=== PATIENT | female | born 1960 | race Caucasian/White ===

== ENCOUNTER 2024-02-11 13:09 | Inpatient (IN) | payer SELFPAY ==
[~2024-02-11] VITALS: Ht 175.3 cm; Wt 94.0 kg
[2024-02-11] VITALS (36 sets, daily range): BP systolic 122–183; BP diastolic 71–109
[~2024-02-11 13:09] MED LIST: ALBUTERO2 IN; ASPERCREME LIDOCA41 SD; CARTIA XT180 MG PO; CLONAZEP ODT1 MG PO; CLONAZEPAM0.5 M1 PO; COMBIVENT RESPIMAT IN; CYMBALTA60 MG PO; DILT-XR180 MG PO; FERROUS SULF325 M3 PO; FLUTICASONE PRO1 AE1 PO; GERI-TUSSI100 MG/51 PO; IPRATROPIU0.5 MG/3 M IN; KLONOPIN1 MG PO; KLOR-CON M1010 MEQ PO; LASIX 40 MG TAB40 MG PO; LISINOPRIL5 MG PO; METFORMIN HCL1000 MG PO; METFORMIN HYD1000 MG; METHOCARBAMOL500 MG PO; NARCAN4 MG/0.1 M; NEURONTIN400 MG PO; OMNICEF300 MG PO; OXY1; POTASSIUM CHLO10 MEQ PO; PREDNISONE10 MG PO; PREDNISONE20 MG PO; PREDNISONE50 MG PO; TIOTROPIUM BRO18 MCG PO; TOPROL XL50 MG PO; TRAMADOL HCL50 MG PO; TRILEPTAL300 MG PO; [UNRECOGNIZED DRUG - OTHER] SD; [UNRECOGNIZED DRUG - OTHER] TOP
[2024-02-11] MEDS ORDERED: methylPREDNISolone SODIUM SUCC 125 MG/2 ML SDV IV ONE (13:15)
[2024-02-11] MEDS ORDERED: IPRATROPIUM-Albuterol 0.5MG-2.5MG/3 ML NEB ONE ×2 (13:15)
[2024-02-11] MEDS ORDERED: cefTRIAXone SODIUM 2 GM in SODIUM CHLORIDE 0.9% 100 ML IV ONE (13:20)
[2024-02-11 13:40] LABS: BASO% 1.1 % (0-3); EOS% 2.5 % (0-8); HEMATOCRIT 39.3 % (37.0-47.0); HEMOGLOBIN 11.2 g/dl (12.0-16.0); IMMATURE GRANULOCYTES 0.3 % (0.0-5.0); MEAN CELL VOLUME 101.8 fL CALC (80.0-100.0); MEAN CORPUSCULAR HGB CONC 28.5 g/dL CAL (32.0-36.0); MONO% 11.6 % (2-13); NEUT# 4.61 thou/uL (2.00-7.15); NEUT% 61.5 % (42-76); RED BLOOD COUNT 3.86 mill/uL (4.20-5.60); RED CELL DISTRI WIDTH 13.6 % (11.5-15.5)
[2024-02-11 13:55] LABS: ALKALINE PHOSPHATASE 61 u/l (38-126); BUN 10 mg/dL (8-23); BUN/CREATININE RATIO 24 (12-20 (CALC)); CARBON DIOXIDE 36 mmol/l (22-30); CHLORIDE 95 mmol/l (95-108); CREATININE 0.4 mg/dL (0.5-1.0); ESTIMATED GFR 110 ML/MIN (>=90 (CALC)); SGOT/AST 30 u/l (9-36); SODIUM 132 mmol/l (137-146); TOTAL PROTEIN 6.7 g/dL (6.3-8.2)
[2024-02-11] MEDS ORDERED: AZITHROMYCIN 500 MG in SODIUM CHLORIDE 0.9% 250 ML IV ONE (14:05)
[2024-02-11 14:06] LABS: ANION GAP 5 (6-22 (CALC)); BILIRUBIN, TOTAL 0.3 mg/dL (0.02-1.3); POTASSIUM 4.1 mmol/l (3.5-5.1)
[2024-02-11] MEDS ORDERED: MORPHINE SULFATE 4 MG/ML VIAL IV ONE (14:55)
[2024-02-11] MEDS ORDERED: ONDANSETRON HCl 4 MG/2 ML SDV IV ONE (14:55)
[2024-02-11] MEDS ORDERED: NALOXONE HCL 0.4 MG/ML 1ML AMP IV ONE (16:45)
[2024-02-11] MEDS ORDERED: ACETAMINOPHEN 325 MG/TAB PO PRN (17:50)
[2024-02-11] MEDS ORDERED: methylPREDNISolone Sod Succ 40 MG/ML SDV IV SCH (17:53)
[2024-02-11] MEDS ORDERED: IPRATROPIUM-Albuterol 0.5MG-2.5MG/3 ML NEB PRN (17:55)
[2024-02-11] MEDS ORDERED: ENOXAPARIN SODIUM 40 MG/0.4 ML SYR SC SCH (21:00)
[2024-02-12] VITALS (25 sets, daily range): BP systolic 109–154; BP diastolic 68–99
[2024-02-12 05:32] LABS: BASO% 0.9 % (0-3); HEMATOCRIT 37.7 % (37.0-47.0); HEMOGLOBIN 11.1 g/dl (12.0-16.0); IMMATURE GRANULOCYTES 0.3 % (0.0-5.0); LYMPH% 24.3 % (15-41); MEAN CELL VOLUME 99.5 fL CALC (80.0-100.0); MEAN CORPUSCULAR HGB 29.3 pG CALC (26.0-32.0); MEAN CORPUSCULAR HGB CONC 29.4 g/dL CAL (32.0-36.0); NEUT# 2.37 thou/uL (2.00-7.15); NEUT% 69.5 % (42-76); RED BLOOD COUNT 3.79 mill/uL (4.20-5.60); RED CELL DISTRI WIDTH 13.7 % (11.5-15.5)
[2024-02-12 05:51] LABS: ALBUMIN 3.7 g/dL (3.2-5.0); BILIRUBIN, TOTAL 0.2 mg/dL (0.02-1.3); CREATININE 0.6 mg/dL (0.5-1.0); MAGNESIUM 1.5 mg/dL (1.6-2.3); POTASSIUM 4.2 mmol/l (3.5-5.1); TOTAL PROTEIN 6.5 g/dL (6.3-8.2)
[2024-02-12] MEDS ORDERED: SODIUM CHLORIDE 0.9% 10 ML SYR IV PRN (07:50)
[2024-02-12] MEDS ORDERED: MAGNESIUM SULFATE HEPTAHYDRATE 50 ML IV SCH (08:00)
[2024-02-12] MEDS ORDERED: DEXTROSE 250 ML IV PRN (09:05)
[2024-02-12] MEDS ORDERED: GABAPENTIN 100 MG/CAP PO SCH (09:30)
[2024-02-12] MEDS ORDERED: DULOXETINE HCl 30 MG/CAP PO SCH (09:30)
[2024-02-12] MEDS ORDERED: METOPROLOL SUCCINATE 50 MG/TAB PO SCH (09:30)
[2024-02-12] MEDS ORDERED: FUROSEMIDE 40 MG/TAB PO SCH (09:30)
[2024-02-12] MEDS ORDERED: HYDROcodone 5 MG/Acetaminophen 325 MG/COMBO PO PRN (10:10)
[2024-02-12] MEDS ORDERED: INSULIN LISPRO 100 UNITS/ML ML SC SCH (11:00)
[2024-02-12] MEDS ORDERED: AZITHROMYCIN 500 MG in SODIUM CHLORIDE 0.9% 250 ML IV SCH (14:00)
[2024-02-12] MEDS ORDERED: SODIUM CHLORIDE 0.9% 10 ML SYR IV SCH (14:00)
[2024-02-13] VITALS (22 sets, daily range): BP systolic 113–166; BP diastolic 59–92
[2024-02-13] MEDS ORDERED: ALPRAZolam 0.25 MG PO PRN (05:30)
[2024-02-13 05:51] LABS: BASO% 0.3 % (0-3); HEMATOCRIT 36.8 % (37.0-47.0); HEMOGLOBIN 11.2 g/dl (12.0-16.0); IMMATURE GRANULOCYTES 0.3 % (0.0-5.0); LYMPH% 17.7 % (15-41); MEAN CELL VOLUME 96.3 fL CALC (80.0-100.0); MEAN CORPUSCULAR HGB 29.3 pG CALC (26.0-32.0); MEAN CORPUSCULAR HGB CONC 30.4 g/dL CAL (32.0-36.0); MONO% 8.5 % (2-13); NEUT# 5.73 thou/uL (2.00-7.15); NEUT% 73.2 % (42-76); RED BLOOD COUNT 3.82 mill/uL (4.20-5.60)
[2024-02-13 06:01] LABS: ALBUMIN 3.8 g/dL (3.2-5.0); BILIRUBIN, TOTAL 0.2 mg/dL (0.02-1.3); CREATININE 0.6 mg/dL (0.5-1.0); MAGNESIUM 1.8 mg/dL (1.6-2.3); POTASSIUM 3.9 mmol/l (3.5-5.1); TOTAL PROTEIN 6.2 g/dL (6.3-8.2)
[2024-02-13] MEDS ORDERED: HYDROcodone 5 MG/Acetaminophen 325 MG/COMBO PO PRN (10:20)
[2024-02-13] MEDS ORDERED: clonazePAM 1 MG/TAB PO PRN (10:25)
[2024-02-13] MEDS ORDERED: metFORMIN HYDROCHLORIDE 500 MG/TAB PO SCH (12:00)
[2024-02-14] VITALS (16 sets, daily range): BP systolic 130–163; BP diastolic 63–96
[2024-02-14 06:06] LABS: BASO% 0.2 % (0-3); HEMATOCRIT 36.5 % (37.0-47.0); HEMOGLOBIN 10.8 g/dl (12.0-16.0); IMMATURE GRANULOCYTES 0.2 % (0.0-5.0); MEAN CELL VOLUME 99.5 fL CALC (80.0-100.0); MEAN CORPUSCULAR HGB 29.4 pG CALC (26.0-32.0); MEAN CORPUSCULAR HGB CONC 29.6 g/dL CAL (32.0-36.0); MONO% 5.4 % (2-13); NEUT# 4.8 thou/uL (2.00-7.15); NEUT% 80.2 % (42-76); RED BLOOD COUNT 3.67 mill/uL (4.20-5.60); RED CELL DISTRI WIDTH 13.9 % (11.5-15.5)
[2024-02-14 06:35] LABS: ALBUMIN 3.6 g/dL (3.2-5.0); CREATININE 0.6 mg/dL (0.5-1.0); MAGNESIUM 1.8 mg/dL (1.6-2.3); POTASSIUM 4.3 mmol/l (3.5-5.1); TOTAL PROTEIN 5.9 g/dL (6.3-8.2)
[2024-02-14 06:43] LABS: BILIRUBIN, TOTAL 0.3 mg/dL (0.02-1.3)
[2024-02-14] MEDS ORDERED: NICOTINE TRANSDERMAL 21 MG/PATCH TD SCH (11:00)
[2024-02-15] VITALS: BP 150/79
[2024-02-15 04:47] VITALS: BP 145/89
[2024-02-15 05:00] VITALS: BP 145/89
[2024-02-15 05:41] LABS: BASO% 0.1 % (0-3); HEMATOCRIT 37.2 % (37.0-47.0); HEMOGLOBIN 11.1 g/dl (12.0-16.0); IMMATURE GRANULOCYTES 0.1 % (0.0-5.0); LYMPH% 16.9 % (15-41); MEAN CELL VOLUME 99.5 fL CALC (80.0-100.0); MEAN CORPUSCULAR HGB 29.7 pG CALC (26.0-32.0); MEAN CORPUSCULAR HGB CONC 29.8 g/dL CAL (32.0-36.0); MONO% 6.2 % (2-13); NEUT# 5.35 thou/uL (2.00-7.15); NEUT% 76.7 % (42-76); RED BLOOD COUNT 3.74 mill/uL (4.20-5.60); RED CELL DISTRI WIDTH 13.8 % (11.5-15.5)
[2024-02-15 05:44] LABS: ALBUMIN 3.6 g/dL (3.2-5.0); BILIRUBIN, TOTAL 0.2 mg/dL (0.02-1.3); CREATININE 0.6 mg/dL (0.5-1.0); MAGNESIUM 1.9 mg/dL (1.6-2.3); POTASSIUM 4.3 mmol/l (3.5-5.1); TOTAL PROTEIN 6.1 g/dL (6.3-8.2)
[2024-02-15 06:53] VITALS: BP 171/93
[2024-02-15 10:23] VITALS: BP 140/76
[2024-02-15] MEDS ORDERED: OMNICEF300 MG PO (11:48)
[2024-02-16 04:36] VITALS: BP 140/77
== END 2024-02-15 16:05 | disposition home or self-care (01) | DRG 190 ==
LOC: ED 13:09 → ED-I 15:07 → ED 15:07 → ICU 17:18 → MS2 17:18
PROVIDERS: Family Medicine; Nurse Practitioner Family; ADMIT Internal Medicine; ATTEND Internal Medicine
PROC: 05HN33Z Insertion of Infusion Device into Left Internal Jugular Vein, Percutaneous Approach (ICD-10-PCS; principal; 2024-02-11)
PROC: 5A09457 Assistance with Respiratory Ventilation, 24-96 Consecutive Hours, Continuous Positive Airway Pressure (ICD-10-PCS; 2024-02-11)
DX: J44.1 Chronic obstructive pulmonary disease with (acute) exacerbation (principal); J96.02 Acute respiratory failure with hypercapnia; E87.29 Other acidosis; J96.11 Chronic respiratory failure with hypoxia; J20.9 Acute bronchitis, unspecified; J44.0 Chronic obstructive pulmonary disease with (acute) lower respiratory infection; I10 Essential (primary) hypertension; E11.42 Type 2 diabetes mellitus with diabetic polyneuropathy; E83.42 Hypomagnesemia; E66.01 Morbid (severe) obesity due to excess calories; M19.90 Unspecified osteoarthritis, unspecified site; F41.9 Anxiety disorder, unspecified; F17.290 Nicotine dependence, other tobacco product, uncomplicated; Z99.81 Dependence on supplemental oxygen; Z79.84 Long term (current) use of oral hypoglycemic drugs; Z99.3 Dependence on wheelchair; Z91.81 History of falling; Z20.822 Contact with and (suspected) exposure to COVID-19
CPT/HCPCS: J1650; J3475

== ENCOUNTER 2024-03-01 11:04 | Inpatient (IN) | payer MEDICAID ==
[~2024-03-01] VITALS: Ht 175.3 cm; Wt 99.0 kg
[2024-03-01] VITALS (27 sets, daily range): BP systolic 95–187; BP diastolic 46–106
[2024-03-01] MEDS ORDERED: AZITHROMYCIN 500 MG in SODIUM CHLORIDE 0.9% 250 ML IV ONE (11:10)
[2024-03-01] MEDS ORDERED: IPRATROPIUM-Albuterol 0.5MG-2.5MG/3 ML NEB ONE ×2 (11:15)
[2024-03-01 11:46] LABS: BASO% 0.8 % (0-3); EOS% 2.9 % (0-8); HEMOGLOBIN 12.5 g/dl (12.0-16.0); IMMATURE GRANULOCYTES 0.3 % (0.0-5.0); LYMPH% 16.2 % (15-41); MEAN CELL VOLUME 103.6 fL CALC (80.0-100.0); MEAN CORPUSCULAR HGB 29.7 pG CALC (26.0-32.0); MEAN CORPUSCULAR HGB CONC 28.7 g/dL CAL (32.0-36.0); MONO% 6.7 % (2-13); NEUT# 9.73 thou/uL (2.00-7.15); NEUT% 73.1 % (42-76); RED BLOOD COUNT 4.21 mill/uL (4.20-5.60); RED CELL DISTRI WIDTH 14.4 % (11.5-15.5)
[2024-03-01 11:47] LABS: HEMATOCRIT 43.6 % (37.0-47.0)
[2024-03-01 11:47] LABS: URINE BILIRUBIN - DIPSTICK Negative (NEGATIVE); URINE BLOOD DIPSTICK Trace-intact (NEGATIVE); URINE GLUCOSE - DIPSTICK Negative (NEGATIVE); URINE KETONE Negative (NEGATIVE); URINE LEUK ESTERASE Negative (NEGATIVE); URINE PROTEIN - DIPSTICK Negative (NEG-TRACE); URINE UROBILINOGEN - DIPSTICK 0.2 E.U./dL (0.2)
[2024-03-01 11:48] LABS: URINE COLOR Yellow; URINE NITRITE - DIPSTICK Positive (Negative)
[2024-03-01 11:49] LABS: URINE BACTERIA MANY hpf; URINE RBC 0-2 RBC/hpf (0-5); URINE SQUAMOUS EPITHELIAL CELL FEW EPI/hpf (0-FEW); URINE WBC 0-2 WBC/hpf (0-5)
[2024-03-01 12:03] LABS: ALBUMIN 4.1 g/dL (3.2-5.0); ALKALINE PHOSPHATASE 57 u/l (38-126); BUN 9 mg/dL (8-23); BUN/CREATININE RATIO 22 (12-20 (CALC)); CHLORIDE 99 mmol/l (95-108); CREATININE 0.4 mg/dL (0.5-1.0); ESTIMATED GFR 110 ML/MIN (>=90 (CALC)); SGOT/AST 29 u/l (9-36); SODIUM 141 mmol/l (137-146); TOTAL PROTEIN 6.5 g/dL (6.3-8.2)
[2024-03-01 12:10] LABS: ANION GAP 7 (6-22 (CALC)); BILIRUBIN, TOTAL 0.4 mg/dL (0.02-1.3); CARBON DIOXIDE 40 mmol/l (22-30); POTASSIUM 5.2 mmol/l (3.5-5.1)
[2024-03-01] MEDS ORDERED: MORPHINE SULFATE 4 MG/ML VIAL IV ONE (12:35)
[2024-03-01] MEDS ORDERED: ONDANSETRON HCl 4 MG/2 ML SDV IV ONE (12:35)
[2024-03-01] MEDS ORDERED: clonazePAM 1 MG/TAB PO PRN (17:00)
[2024-03-01] MEDS ORDERED: ACETAMINOPHEN 325 MG/TAB PO PRN (17:00)
[2024-03-01] MEDS ORDERED: MAGNESIUM HYDROXIDE 30 ML UDC PO PRN (17:00)
[2024-03-01] MEDS ORDERED: HYDROcodone 5 MG/Acetaminophen 325 MG/COMBO PO PRN (17:05)
[2024-03-01] MEDS ORDERED: IPRATROPIUM-Albuterol 0.5MG-2.5MG/3 ML NEB PRN (17:05)
[2024-03-01] MEDS ORDERED: DEXTROSE 250 ML IV PRN (17:05)
[2024-03-01] MEDS ORDERED: DILTIAZEM HCl COATED BEADS 180 MG/CAP PO SCH (20:00)
[2024-03-01] MEDS ORDERED: INSULIN LISPRO 100 UNITS/ML ML SC SCH (21:00)
[2024-03-01] MEDS ORDERED: DULOXETINE HCl 30 MG/CAP PO SCH (21:00)
[2024-03-01] MEDS ORDERED: GABAPENTIN 100 MG/CAP PO SCH (21:00)
[2024-03-01] MEDS ORDERED: ENOXAPARIN SODIUM 40 MG/0.4 ML SYR SC SCH (21:00)
[2024-03-01] MEDS ORDERED: methylPREDNISolone Sod Succ 40 MG/ML SDV IV SCH (22:00)
[2024-03-02] VITALS (25 sets, daily range): BP systolic 93–157; BP diastolic 55–103
[2024-03-02] MEDS ORDERED: OXcarbazepine 150 MG/TAB PO SCH (09:00)
[2024-03-02] MEDS ORDERED: METOPROLOL SUCCINATE 50 MG/TAB PO SCH (09:00)
[2024-03-02] MEDS ORDERED: FUROSEMIDE 40 MG/TAB PO SCH (09:00)
[2024-03-02] MEDS ORDERED: AZITHROMYCIN 500 MG in SODIUM CHLORIDE 0.9% 250 ML IV SCH (11:00)
[2024-03-02] MEDS ORDERED: LISINOPRIL2.5 MG PO (15:30)
[2024-03-03] VITALS (21 sets, daily range): BP systolic 113–148; BP diastolic 58–109
[2024-03-03 04:57] LABS: HEMATOCRIT 39.9 % (37.0-47.0); HEMOGLOBIN 12.1 g/dl (12.0-16.0); MEAN CELL VOLUME 98.3 fL CALC (80.0-100.0); MEAN CORPUSCULAR HGB 29.8 pG CALC (26.0-32.0); MEAN CORPUSCULAR HGB CONC 30.3 g/dL CAL (32.0-36.0); RED BLOOD COUNT 4.06 mill/uL (4.20-5.60); RED CELL DISTRI WIDTH 14.4 % (11.5-15.5)
[2024-03-03 05:23] LABS: ALBUMIN 4.2 g/dL (3.2-5.0); BILIRUBIN, TOTAL 0.3 mg/dL (0.02-1.3); CREATININE 0.7 mg/dL (0.5-1.0); MAGNESIUM 1.8 mg/dL (1.6-2.3); POTASSIUM 4.5 mmol/l (3.5-5.1); TOTAL PROTEIN 6.5 g/dL (6.3-8.2)
[2024-03-03] MEDS ORDERED: NICOTINE TRANSDERMAL 21 MG/PATCH TD SCH (12:00)
[2024-03-04] VITALS (32 sets, daily range): BP systolic 69–151; BP diastolic 44–99
[2024-03-04 07:25] LABS: BASO% 0.1 % (0-3); HEMATOCRIT 38.9 % (37.0-47.0); HEMOGLOBIN 11.8 g/dl (12.0-16.0); IMMATURE GRANULOCYTES 0.1 % (0.0-5.0); LYMPH% 13.6 % (15-41); MEAN CORPUSCULAR HGB CONC 30.3 g/dL CAL (32.0-36.0); MONO% 13.3 % (2-13); NEUT# 8.18 thou/uL (2.00-7.15); NEUT% 72.9 % (42-76); RED BLOOD COUNT 3.93 mill/uL (4.20-5.60); RED CELL DISTRI WIDTH 14.7 % (11.5-15.5)
[2024-03-04 07:38] LABS: ALBUMIN 3.7 g/dL (3.2-5.0); BILIRUBIN, TOTAL 0.4 mg/dL (0.02-1.3); CREATININE 0.6 mg/dL (0.5-1.0)
[2024-03-04] MEDS ORDERED: LORazepam 2 MG/ML IV PRN (08:55)
[2024-03-04] MEDS ORDERED: dilTIAZem HCL 50 MG/10 ML SDV IV PRN (13:15)
[2024-03-04] MEDS ORDERED: DILTIAZEM HCL 125 MG in SODIUM CHLORIDE 0.9% 100 ML IV PRN (13:15)
[2024-03-04] MEDS ORDERED: DILTIAZEM HCL 25 MG/5 ML SDV IV PRN (13:25)
[2024-03-04] MEDS ORDERED: IPRATROPIUM BROMIDE 0.5 MG/2.5 ML SOL IN SCH (15:00)
[2024-03-04] MEDS ORDERED: LEVALBUTEROL HCL 1.25 MG/3 ML VIAL NEB SCH (15:00)
[2024-03-04] MEDS ORDERED: DIGOXIN 0.5 MG/2 ML AMP IV SCH ×2 (15:45→18:00)
[2024-03-04] MEDS ORDERED: methylPREDNISolone Sod Succ 40 MG/ML SDV IV SCH (21:00)
[2024-03-04] MEDS ORDERED: APIXABAN BASE 2.5 MG/TAB TAB PO SCH (21:00)
[2024-03-05] VITALS (36 sets, daily range): BP systolic 114–182; BP diastolic 64–125
[2024-03-05 04:59] LABS: HEMATOCRIT 40.6 % (37.0-47.0); HEMOGLOBIN 12.1 g/dl (12.0-16.0); IMMATURE GRANULOCYTES 0.3 % (0.0-5.0); LYMPH% 8.3 % (15-41); MEAN CELL VOLUME 101.2 fL CALC (80.0-100.0); MEAN CORPUSCULAR HGB 30.2 pG CALC (26.0-32.0); MEAN CORPUSCULAR HGB CONC 29.8 g/dL CAL (32.0-36.0); MONO% 3.2 % (2-13); NEUT# 6.89 thou/uL (2.00-7.15); NEUT% 88.2 % (42-76); RED BLOOD COUNT 4.01 mill/uL (4.20-5.60); RED CELL DISTRI WIDTH 14.4 % (11.5-15.5)
[2024-03-05 05:01] LABS: ALBUMIN 3.9 g/dL (3.2-5.0); POTASSIUM 4.5 mmol/l (3.5-5.1); TOTAL PROTEIN 6.1 g/dL (6.3-8.2)
[2024-03-05 05:05] LABS: CREATININE 0.6 mg/dL (0.5-1.0)
[2024-03-05 05:06] LABS: BILIRUBIN, TOTAL 0.2 mg/dL (0.02-1.3)
[2024-03-05] MEDS ORDERED: LISINOPRIL 20 MG/TAB PO SCH (10:30)
[2024-03-06] VITALS (18 sets, daily range): BP systolic 110–184; BP diastolic 70–90
[2024-03-06 04:45] LABS: BASO% 0.1 % (0-3); HEMOGLOBIN 11.6 g/dl (12.0-16.0); IMMATURE GRANULOCYTES 1.1 % (0.0-5.0); LYMPH% 7.3 % (15-41); MEAN CELL VOLUME 99.5 fL CALC (80.0-100.0); MEAN CORPUSCULAR HGB 29.6 pG CALC (26.0-32.0); MEAN CORPUSCULAR HGB CONC 29.7 g/dL CAL (32.0-36.0); NEUT# 7.66 thou/uL (2.00-7.15); NEUT% 87.5 % (42-76); RED BLOOD COUNT 3.92 mill/uL (4.20-5.60); RED CELL DISTRI WIDTH 14.3 % (11.5-15.5)
[2024-03-06 05:20] LABS: ALBUMIN 3.7 g/dL (3.2-5.0); CREATININE 0.5 mg/dL (0.5-1.0); MAGNESIUM 2.1 mg/dL (1.6-2.3); POTASSIUM 4.5 mmol/l (3.5-5.1); TOTAL PROTEIN 5.9 g/dL (6.3-8.2)
[2024-03-06 05:22] LABS: BILIRUBIN, TOTAL 0.3 mg/dL (0.02-1.3)
[2024-03-06] MEDS ORDERED: DEXAMETHASONE 2 MG/TAB TAB PO SCH (09:00)
[2024-03-06] MEDS ORDERED: METOPROLOL SUCCINATE 50 MG/TAB PO SCH (09:00)
[2024-03-06] MEDS ORDERED: ELIQUIS2.5 MG PO (12:18)
[2024-03-06] MEDS ORDERED: TOPROL XL50 MG PO (12:19)
[2024-03-06] MEDS ORDERED: LASIX 40 MG TAB40 MG PO (12:22)
[2024-03-06] MEDS ORDERED: POTASSIUM CHLO10 MEQ PO (12:23)
[2024-03-06] MEDS ORDERED: TRILEPTAL300 MG PO (12:23)
[2024-03-06] MEDS ORDERED: NEURONTIN400 MG PO (12:23)
[2024-03-06] MEDS ORDERED: CYMBALTA60 MG PO (12:23)
[2024-03-06] MEDS ORDERED: CARTIA XT180 MG PO (12:23)
[2024-03-06] MEDS ORDERED: LISINOPRIL10 MG PO (12:24)
[2024-03-06] MEDS ORDERED: OMNICEF300 MG PO (12:25)
[2024-03-06] MEDS ORDERED: CLONAZEP ODT1 MG PO ×2 (12:25→21:11)
[2024-03-06] MEDS ORDERED: LORTAB5 PO ×2 (12:25→21:11)
[2024-03-06] MEDS ORDERED: DECADRON2 MG PO (12:30)
[2024-03-06] MEDS ORDERED: IPRATROPIU0.5 MG/3 M IN (12:31)
== END 2024-03-06 19:05 | disposition home or self-care (01) | DRG 189 ==
LOC: ED 11:04 → ED-I 12:05 → ED 12:40 → ICU 12:41 → MS2 03-03 08:30 → ICU 03-03 10:18
PROVIDERS: Family Medicine; Student in an Organized Health Care Education/Training Program; ADMIT Internal Medicine; ATTEND Internal Medicine
PROC: 5A09457 Assistance with Respiratory Ventilation, 24-96 Consecutive Hours, Continuous Positive Airway Pressure (ICD-10-PCS; principal; 2024-03-01)
DX: J96.21 Acute and chronic respiratory failure with hypoxia (principal); J44.1 Chronic obstructive pulmonary disease with (acute) exacerbation; N39.0 Urinary tract infection, site not specified; J96.22 Acute and chronic respiratory failure with hypercapnia; B96.1 Klebsiella pneumoniae [K. pneumoniae] as the cause of diseases classified elsewhere; I10 Essential (primary) hypertension; E11.9 Type 2 diabetes mellitus without complications; I48.0 Paroxysmal atrial fibrillation; F31.9 Bipolar disorder, unspecified; F41.9 Anxiety disorder, unspecified; M54.50 Low back pain, unspecified; G89.29 Other chronic pain; F17.210 Nicotine dependence, cigarettes, uncomplicated; Z99.81 Dependence on supplemental oxygen; Z79.84 Long term (current) use of oral hypoglycemic drugs; Z20.822 Contact with and (suspected) exposure to COVID-19; E66.9 Obesity, unspecified; Z68.32 Body mass index [BMI] 32.0-32.9, adult
CPT/HCPCS: J1160; J1650; J2060

== ENCOUNTER 2024-03-24 00:25 | Emergency (ER) | payer MEDICAID ==
[2024-03-24] VITALS (14 sets, daily range): BP systolic 109–163; BP diastolic 47–101
[~2024-03-24] VITALS: Ht 175.3 cm; Wt 90.0 kg
[~2024-03-24 00:25] MED LIST changes: +DECADRON2 MG PO; +ELIQUIS2.5 MG PO; +LISINOPRIL10 MG PO; +LISINOPRIL2.5 MG PO; +LORTAB5 PO
[2024-03-24] MEDS ORDERED: FUROSEMIDE 40 MG/4 ML SDV IV ONE (00:35)
[2024-03-24] MEDS ORDERED: KETOROLAC TROMETHAMINE 30 MG/ML SDV IV ONE (00:35)
[2024-03-24] MEDS ORDERED: IPRATROPIUM-Albuterol 0.5MG-2.5MG/3 ML NEB ONE (00:35)
[2024-03-24] MEDS ORDERED: MORPHINE SULFATE 4 MG/ML VIAL IV ONE ×2 (01:30→03:05)
[2024-03-24 01:49] LABS: HEMOGLOBIN 13.5 g/dl (12.0-16.0); MEAN CORPUSCULAR HGB 29.7 pG CALC (26.0-32.0); MEAN CORPUSCULAR HGB CONC 27.8 g/dL CAL (32.0-36.0); RED BLOOD COUNT 4.54 mill/uL (4.20-5.60)
[2024-03-24 01:50] LABS: BASO% 0.6 % (0-3); EOS% 0.2 % (0-8); IMMATURE GRANULOCYTES 0.2 % (0.0-5.0); LYMPH% 10.7 % (15-41); MONO% 7.6 % (2-13); NEUT# 8.03 thou/uL (2.00-7.15); NEUT% 80.7 % (42-76); RED CELL DISTRI WIDTH 14.7 % (11.5-15.5)
[2024-03-24 02:00] LABS: HEMATOCRIT 48.5 % (37.0-47.0); MEAN CELL VOLUME 106.8 fL CALC (80.0-100.0)
[2024-03-24 02:13] LABS: ALBUMIN 3.9 g/dL (3.2-5.0); BILIRUBIN, TOTAL 0.4 mg/dL (0.02-1.3); CREATININE 0.5 mg/dL (0.5-1.0); POTASSIUM 4.7 mmol/l (3.5-5.1); TOTAL PROTEIN 6.7 g/dL (6.3-8.2)
[2024-03-24] MEDS ORDERED: PROMETHAZINE HCL 25 MG/ML AMP IV ONE (03:05)
[2024-03-24 06:48] LABS: URINE BILIRUBIN - DIPSTICK Negative (NEGATIVE); URINE BLOOD DIPSTICK Negative (NEGATIVE); URINE GLUCOSE - DIPSTICK Negative (NEGATIVE); URINE KETONE Negative (NEGATIVE); URINE LEUK ESTERASE Negative (NEGATIVE); URINE NITRITE - DIPSTICK Negative (Negative); URINE PROTEIN - DIPSTICK 100 mg/dL (NEG-TRACE); URINE UROBILINOGEN - DIPSTICK 0.2 E.U./dL (0.2)
[2024-03-24 06:49] LABS: URINE COLOR Yellow
[2024-03-24] MEDS ORDERED: NEOMYCIN-BACITRACIN-POLYMYXIN 0.5 GM/PAK PAK TOP ONE (06:50)
[2024-03-24 07:02] LABS: URINE RBC 0-2 RBC/hpf (0-5)
== END 2024-03-24 12:30 | disposition home or self-care (01) ==
LOC: ED 00:25
PROVIDERS: Family Medicine
DX: S81.011A Laceration without foreign body, right knee, initial encounter (principal); S51.011A Laceration without foreign body of right elbow, initial encounter; T14.8XXA Other injury of unspecified body region, initial encounter; I10 Essential (primary) hypertension; E11.9 Type 2 diabetes mellitus without complications; J44.9 Chronic obstructive pulmonary disease, unspecified; F31.9 Bipolar disorder, unspecified; F41.9 Anxiety disorder, unspecified; E66.9 Obesity, unspecified; F17.210 Nicotine dependence, cigarettes, uncomplicated; W06.XXXA Fall from bed, initial encounter; Y92.003 Bedroom of unspecified non-institutional (private) residence as the place of occurrence of the external cause; Z79.84 Long term (current) use of oral hypoglycemic drugs; Z99.81 Dependence on supplemental oxygen; Z20.822 Contact with and (suspected) exposure to COVID-19

== ENCOUNTER 2024-03-28 00:27 | Inpatient (IN) | payer MEDICAID ==
[~2024-03-28] VITALS: Ht 175.3 cm; Wt 106.5 kg
[2024-03-28] VITALS (37 sets, daily range): BP systolic 96–147; BP diastolic 57–110
--- NOTE | 2024-03-28 00:27 | NUR ---
PATIENT TO ROOM 1 VIA EMS.
[2024-03-28] MEDS ORDERED: IPRATROPIUM-Albuterol 0.5MG-2.5MG/3 ML NEB ONE (00:35)
[2024-03-28] MEDS ORDERED: methylPREDNISolone Sod Succ 40 MG/ML SDV IV ONE (00:35)
[2024-03-28] MEDS ORDERED: VANCOMYCIN HCL 1 GM in SODIUM CHLORIDE 0.9% 250 ML IV ONE (01:05)
[2024-03-28] MEDS ORDERED: CEFEPIME HYDROCHLORIDE 2 GM in SODIUM CHLORIDE 0.9% 100 ML IV ONE (01:05)
--- NOTE | 2024-03-28 01:21 | NUR ---
PATIENT PLACED ON BIPAP
[2024-03-28 01:26] LABS: BASO% 0.6 % (0-3); EOS% 1.8 % (0-8); HEMATOCRIT 51.8 % (37.0-47.0); HEMOGLOBIN 14.4 g/dl (12.0-16.0); IMMATURE GRANULOCYTES 0.4 % (0.0-5.0); LYMPH% 20.5 % (15-41); MEAN CELL VOLUME 107.5 fL CALC (80.0-100.0); MEAN CORPUSCULAR HGB 29.9 pG CALC (26.0-32.0); MEAN CORPUSCULAR HGB CONC 27.8 g/dL CAL (32.0-36.0); NEUT# 8.29 thou/uL (2.00-7.15); NEUT% 64.7 % (42-76); RED BLOOD COUNT 4.82 mill/uL (4.20-5.60); RED CELL DISTRI WIDTH 15.2 % (11.5-15.5)
[2024-03-28 01:39] LABS: ALBUMIN 4.2 g/dL (3.2-5.0); BILIRUBIN, TOTAL 0.4 mg/dL (0.02-1.3); CREATININE 0.7 mg/dL (0.5-1.0); POTASSIUM 4.5 mmol/l (3.5-5.1); TOTAL PROTEIN 7.1 g/dL (6.3-8.2)
[2024-03-28] MEDS ORDERED: ACETAMINOPHEN 325 MG/TAB PO PRN (02:30)
[2024-03-28] MEDS ORDERED: MAGNESIUM HYDROXIDE 30 ML UDC PO PRN (02:30)
--- NOTE | 2024-03-28 02:37 | NUR ---
PATIENT AWAITING ROOM ASSIGNMENT
[2024-03-28] MEDS ORDERED: ALBUTEROL SULFATE 8 GM INH IN SCH (04:00)
--- NOTE | 2024-03-28 05:00 | NUR ---
pt assesses moved to [facility] with ER ad RT, pt bathes for BM, new brief, put on bipap, pt has enucleated left eye, RR non labored. coarse over diminished lung sounds. scattered bruises, no decubitus, roght foot little toe abcess. pt reports smoking at home on o2, pt states" she does not want this anymore" , asked what that is pt states " "comming to the hospital", pt encouraged to let MD know her wishes when he rounds. . pt provided a gown and warm blanket. new linens pt weighed and recored 213lbs. alox2. person and [place. BSx4. IV flushed. moniotr on , NSR, BP stable. 99.0 temprally. bed alarm on .
--- NOTE | 2024-03-28 05:31 | NUR ---
REPORT CALLED TO ANTOINE WHITLEY.
--- NOTE | 2024-03-28 05:40 | NUR ---
PATIENT TRASNPORTED TO ICU BED 8, CARE HANDED OVER TO DARRELL WHITLEY
[2024-03-28] MEDS ORDERED: HYDROcodone 5 MG/Acetaminophen 325 MG/COMBO PO PRN (08:00)
[2024-03-28] MEDS ORDERED: DEXTROSE 250 ML IV PRN (08:00)
[2024-03-28] MEDS ORDERED: IPRATROPIUM-Albuterol 0.5MG-2.5MG/3 ML NEB PRN (08:00)
[2024-03-28] MEDS ORDERED: clonazePAM 1 MG/TAB PO PRN (08:00)
--- NOTE | 2024-03-28 08:00 | NUR ---
REPORT RECEIVED FROM NIGHT NURSE. PATIENT IS RESTING IN BED. DOES NOT WAKE UP TO VERBAL STIMULI, ONLY PAINFUL STIMULI. ON BIPAP 40%. SR ON TELE. VS WNL. RT TO DO ABG. ALL NEEDS ADDRESSED.
[2024-03-28] MEDS ORDERED: GABAPENTIN 300 MG/CAP PO SCH (09:00)
[2024-03-28] MEDS ORDERED: methylPREDNISolone Sod Succ 40 MG/ML SDV IV SCH (09:00)
[2024-03-28] MEDS ORDERED: METOPROLOL SUCCINATE 50 MG/TAB PO SCH (09:00)
[2024-03-28] MEDS ORDERED: DILTIAZEM HCl COATED BEADS 180 MG/CAP PO SCH (09:00)
[2024-03-28] MEDS ORDERED: DULOXETINE HCl 30 MG/CAP PO SCH (09:00)
[2024-03-28] MEDS ORDERED: GABAPENTIN 100 MG/CAP PO SCH ×2 (09:00)
[2024-03-28] MEDS ORDERED: APIXABAN BASE 5 MG TAB PO SCH (09:00)
[2024-03-28] MEDS ORDERED: CEFEPIME HYDROCHLORIDE 2 GM in SODIUM CHLORIDE 0.9% 100 ML IV SCH (10:00)
--- NOTE | 2024-03-28 10:00 | NUR ---
PATIENT LAYING IN BED RESTING. ON BIPAP 50%. ALL NEEDS MET. VSS.
[2024-03-28] MEDS ORDERED: INSULIN LISPRO 100 UNITS/ML ML SC SCH (11:00)
--- NOTE | 2024-03-28 11:17 | NUR ---
S: CHARLOTTE CHAHAL is a 63 F who presents with cellulitis. She has a history of diabetes, hypertension, COPD, anxiety, bipolar disorder, and chronic back pain. All medications in patient's chart were reviewed. O: VS: BP 114/65 mmHg, P 72 beats/min, RR 20 bpm,T 99 F W 96.8 kg, HT 175 cm, Scr= 0.7,CrCl= 100.5 ml/min A: Blood culture is pending. P: Patient is on cefepime 2g IV Q12H. Vancomycin ordered for pharmacy to dose. Start Vancomycin 1,250 mg IV Q12H. Vancomycin trough is drawn before the 4th dose on 03/30/2024 @ 0030. Vancomycin goal trough is between 10-15 mcg/ml. Pharmacy will follow and advise on antibiotics use as needed.
--- NOTE | 2024-03-28 12:00 | NUR ---
PATIENT SITTIG UP IN BED AWAKE. AXO X3. DR. LARIOS AT BEDSIDE. PATIENT WAS TAKEN OFF BIPAP AND PLACED ON NASAL CANULA 3L. ALL NEEDS MET. CALL LIGHT IN REACH. VSS.
[2024-03-28] MEDS ORDERED: VANCOMYCIN HCL 1,250 MG in SODIUM CHLORIDE 0.9% 225 ML IV SCH (13:00)
--- NOTE | 2024-03-28 14:00 | NUR ---
PATIENT LAYING IN BED RESTING. ON 3L NC. ALL NEEDS MET. CALL LIGHT IN REACH. VSS.
--- NOTE | 2024-03-28 16:00 | NUR ---
PATIENT LAYING ON SIDE RESTING. DRESSING CHANGE COMPLETE, PATIENT TOLERATED WELL. ON 3L NC. PUREWICK IN PLACE. CALL LIGHT IN REACH. VSS.
--- NOTE | 2024-03-28 18:00 | NUR ---
PATIENT LAYING DOWN IN BED RESTING. ON 3L NC. PUREWICK IN PLACE. ALL NEEDS MET. CALL LIGHT IN REACH. VSS.
[2024-03-28 19:42] LABS: URINE BILIRUBIN - DIPSTICK Negative (NEGATIVE); URINE BLOOD DIPSTICK Negative (NEGATIVE); URINE GLUCOSE - DIPSTICK Negative (NEGATIVE); URINE KETONE Negative (NEGATIVE); URINE LEUK ESTERASE Negative (NEGATIVE); URINE NITRITE - DIPSTICK Negative (Negative); URINE PH 5.5 (4.5-8.0); URINE PROTEIN - DIPSTICK 100 mg/dL (NEG-TRACE); URINE SPECIFIC GRAVITY >=1.030; URINE UROBILINOGEN - DIPSTICK 0.2 E.U./dL (0.2)
[2024-03-28 19:50] LABS: URINE COLOR Yellow
--- NOTE | 2024-03-28 19:50 | NUR ---
spoke to DR. Heart , about pt refusing to go on bipap, pt confused not redirecting or following commands. . Pt medicated , DR. Heart ordered an ABG,
[2024-03-28 19:51] LABS: URINE AMORPH SEDIMENT MANY hpf (NONE-FEW); URINE RBC 0-2 RBC/hpf (0-5); URINE SQUAMOUS EPITHELIAL CELL FEW EPI/hpf (0-FEW)
--- NOTE | 2024-03-28 20:00 | NUR ---
PT ASSESSED , REFUSED TO BE REOPOSITIONED AND RESPOSITIONED HERSELF A LITTLE PT ANXIOUS AND REQUESTING HER PM MEDS. PM MEDS GIVEN EARLY . PT AGREEED TO GO ON BIPAP FOR EVENING AND ASKING IF SHE IS GOING HOME TONIGHT. PT EDUCATED NO , SHE JUST GOT HERE THIS AM AND WAS IN RESPIRATORY DISTRESS. CO2 CURRENTLY IN 90S ON LAST GAS. PT DRANK WATER WITH PILLS NO ISSUIES SWOLLOWING. CALL LANCASTER WITHIN REACH ALL MONITORS ON . ROYCECK IN PLACE U/A SENT .
[2024-03-28] MEDS ORDERED: ENOXAPARIN SODIUM 40 MG/0.4 ML SYR SC SCH (21:00)
--- NOTE | 2024-03-28 22:28 | NUR ---
pt complied and was put on bipap., Dr. Heart made aware of gas by RT Phillip and pt put on bipap.
[2024-03-29] VITALS (19 sets, daily range): BP systolic 103–138; BP diastolic 46–94
--- NOTE | 2024-03-29 | NUR ---
pt caregiver updated to pt status via phone earlier this evening. Pt urrently complient on the bipap on her right side positioned with pillows sleeping , IVABX done IV flushed , call covington within reach , Melbosswick working . on all moniotrs and all alarms on . resting comfortably.
--- NOTE | 2024-03-29 02:00 | NUR ---
pt resting comfortaly on the bipap, all safety measures in place, warm blankets provided. call covington within reach.
--- NOTE | 2024-03-29 04:31 | NUR ---
pt still refusing care, refusing lab draws and antibiotics. valeriano hobson MD in am
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
--- NOTE | 2024-03-29 04:48 | NUR ---
pt finally let RN masonry supervisor abx. will let pharmacy know for trough.
--- NOTE | 2024-03-29 05:45 | NUR ---
pt ely , IV ABX going . medicated am solu medrol on bipap, all monitors on , bed alarm on , call covington within reach.
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
--- NOTE | 2024-03-29 08:00 | NUR ---
REPORT RECEIVED FROM MARINE PLUMBER NURSE. PATIENT IS RESTING IN BED, ON 3L NC. PATIENT IS CONFUSED, ONLY ORIENTED TO SELF AND PLACE, KEEPS YELLING OUT AND HITTING CALL LIGHT ON BED RAIL. WHEN ASKED WHY SHE IS YELLING, PATIENT STATES THAT PEOPLE ARE TRYING TO KILL HER. MD AT BEDSIDE AND ORDERED ZYPREXA. VS WNL, NSR ON TELE MONITOR. ALL NEEDS ADDRESSED.
--- NOTE | 2024-03-29 09:15 | NUR ---
Dr Clifton (wound care ) at bedside. Orders for wound care in chart.
[2024-03-29 09:29] LABS: HEMATOCRIT 46.3 % (37.0-47.0); HEMOGLOBIN 13.1 g/dl (12.0-16.0); MEAN CELL VOLUME 106.4 fL CALC (80.0-100.0); MEAN CORPUSCULAR HGB 30.1 pG CALC (26.0-32.0); MEAN CORPUSCULAR HGB CONC 28.3 g/dL CAL (32.0-36.0); RED BLOOD COUNT 4.35 mill/uL (4.20-5.60); RED CELL DISTRI WIDTH 14.4 % (11.5-15.5)
[2024-03-29] MEDS ORDERED: NEOMYCIN TOP PRN (09:40)
[2024-03-29] MEDS ORDERED: BACITRACIN TOP PRN (09:40)
[2024-03-29] MEDS ORDERED: [UNRECOGNIZED DRUG - OTHER] TOP PRN (09:40)
--- NOTE | 2024-03-29 10:00 | NUR ---
PATIENT IS RESTING IN BED, SEEMS TO BE MORE CALM THAN EARLIER. A&O TO SELF, PLACE. ON 3L NC, BIPAP ON STANDBY. VS WNL, NSR ON TELE MONITOR. ALL NEEDS ADDRESSED.
[2024-03-29 10:31] LABS: ALBUMIN 3.7 g/dL (3.2-5.0); BILIRUBIN, TOTAL 0.4 mg/dL (0.02-1.3); CREATININE 0.7 mg/dL (0.5-1.0)
[2024-03-29 10:34] LABS: POTASSIUM 5.2 mmol/l (3.5-5.1)
[2024-03-29 10:35] LABS: MAGNESIUM 1.5 mg/dL (1.6-2.3)
--- NOTE | 2024-03-29 12:00 | NUR ---
PATIENT LAYING IN BED SLEEPING. ON 3L NC. NORMAL SINUS ON TELE. VSS. CALL LIGHT IN REACH.
--- NOTE | 2024-03-29 14:00 | NUR ---
PATIENT SITTING UP IN BED EATING. ALL NEEDS MET. ON 3L NC. NS ON TELE. CALL LIGHT IN REACH. VSS.
--- NOTE | 2024-03-29 16:00 | NUR ---
PATIENT LAYING DOWN IN BED ASLEEP. ON 3LNC. ALL NEEDS MET. VSS.
--- NOTE | 2024-03-29 18:00 | NUR ---
PATIENT SITTING UP IN BED EATING. DRESSING CHANGE COMPLETE. PATIENT TOLERATED WELL. ALL NEEDS MET. VSS.
--- NOTE | 2024-03-29 20:00 | NUR ---
pt assessed, pt is acting out and yelling . sitting at bedside to let her calm down , contacted Dr. Rodriguez for prn meds for aggitation.
--- NOTE | 2024-03-29 22:00 | NUR ---
pt resting comfortably after IM 2.5 zyprexa. pt put on bipap to sleep by RT.
--- NOTE | 2024-03-30 | NUR ---
pt resting and changed for incontinence new briief, purewick. all onitors on bipap on . iv abx . call covington within reach.
--- NOTE | 2024-03-30 02:00 | NUR ---
pt resting comfoertbaly on bipap. all needs met. call covington within reach.
--- NOTE | 2024-03-30 03:00 | NUR ---
pt awoke screaming and volent behavior toward staff ripped off bipap and would not let RN or anyone put on nasal cannula, pt sats dipped to 78% with a good pleth. contacted Una Askew and obtained orders for ativan iv and zyprexa for prn if ativan does not work. pts IV was out obtaibed a new IV 20 in left hand and pt given ativan , pt became more cooperative and was put on nasal cannula pt was bathed for urine, new gown new bedding new pure wick. turned on left side per pt request and fell asleep.
[2024-03-30] MEDS ORDERED: LORazepam 2 MG/ML IV SCH ×2 (03:17→22:00)
--- NOTE | 2024-03-30 04:00 | NUR ---
maintenance shop laborer abhay labs pt restng on 3L nc, RT stopped by made aware of previous situation and told pt medicated if she wanted to to bipap on pt. RT stateed no BIpAP for now pt should be left on NC sats maintained abouve 90%. pt resting comfortably. call covington within reach.
[2024-03-30 05:00] LABS: HEMATOCRIT 43.3 % (37.0-47.0); HEMOGLOBIN 12.5 g/dl (12.0-16.0); MEAN CELL VOLUME 104.6 fL CALC (80.0-100.0); MEAN CORPUSCULAR HGB 30.2 pG CALC (26.0-32.0); MEAN CORPUSCULAR HGB CONC 28.9 g/dL CAL (32.0-36.0); RED BLOOD COUNT 4.14 mill/uL (4.20-5.60); RED CELL DISTRI WIDTH 14.5 % (11.5-15.5)
[2024-03-30 05:07] LABS: ALBUMIN 3.5 g/dL (3.2-5.0); BILIRUBIN, TOTAL 0.3 mg/dL (0.02-1.3); CREATININE 0.6 mg/dL (0.5-1.0); POTASSIUM 4.8 mmol/l (3.5-5.1); TOTAL PROTEIN 5.7 g/dL (6.3-8.2)
[2024-03-30 05:27] LABS: MAGNESIUM 1.9 mg/dL (1.6-2.3)
[2024-03-30 05:35] VITALS: BP 122/72
--- NOTE | 2024-03-30 06:00 | NUR ---
pt resting sleeping mouth open pt woke up due to sats 88% encouraged to take a deep breath. sats 90-92% on 3L NC. pt dry . call covington within reach .
[2024-03-30] MEDS ORDERED: OXcarbazepine 150 MG/TAB PO SCH (09:00)
--- NOTE | 2024-03-30 10:00 | NUR ---
Patient is resting in bed, patient remains confused. A&O to self only, at times she knows she is at the hospital. On 3L NC, BIPAP on standby. Purwick in place, NSR on tele monitor. All needs addressed. Call light within reach, bed alarm on.
--- NOTE | 2024-03-30 10:38 | NUR ---
S: CHARLOTTE CHAHAL is a 63 F who presents with cellulitis. She has a history of COPD, chronic respiratory failure with hypoxia, diabetes, hypertension, bipolar disorder, anxiety, and chronic back pain. All medications in patient's chart were reviewed. O: VS: BP 122/72 mmHg, P 85 bpm, RR 14 breaths/min,T 96.5 f W 103.7 kg, HT 69 in, Scr= 0.6,CrCl= 72.9 ml/min A: Blood culture is pending. P: Patient is on cefepime 2g IV Q12H. Vancomycin ordered for pharmacy to dose. current dose is vancomycin 1250mg IV q24h. Vanco trough on 03/30/24 @ 0030 = 11. Continue Vancomycin 1250 mg IV Q12H. Next Vancomycin trough will be drawn on 04/01/24 @0030, prior to 0100 dose. Vancomycin goal trough is between 10-15 mcg/ml. Pharmacy will follow and or advise on antibiotics use as needed.
--- NOTE | 2024-03-30 12:00 | NUR ---
Patient is sitting on side of bed eating lunch. On 3L NC and tolerating. Patient is A&O to self and place at this time. Although still confused. VS WNL, NSR on tele monitor, purwick in place. All needs addressed at this time. Call light within reach, bed alarm on.
--- NOTE | 2024-03-30 14:00 | NUR ---
Patient is sitting on side of bed. On 3L NC and tolerating. Patient is confused, A&O to self and place at this time. VS WNL, NSR on tele monitor, purwick in place. All needs addressed at this time. Call light within reach, bed alarm on.
--- NOTE | 2024-03-30 16:00 | NUR ---
Patient is resting in bed, c/o pain. Will medicate with PRN med. Patient is A&O to self and place, still confused at times but maintains a calm demeanor. On 3L NC, VS WNL, NSR on tele monitor, purwick in place. All needs addressed. Call light within reach.
--- NOTE | 2024-03-30 18:00 | NUR ---
Patient is sitting in side of bed finishing dinner. A&O to self and place. Confused at times and thinks she is at someones house rather than the hospital. On 3L NC, VS WNL, NSR on tele monitor, andrei in place. All needs addressed at this time. Call light within reach.
--- NOTE | 2024-03-30 19:33 | NUR ---
RECIEVED REPORT FROM PREVIOUS ASSIGNED NURSE. PTIS CURRENTLY IN BED WATCHING TV. CALL LIGHT IS WITHIN REACH.
[2024-03-30 20:25] VITALS: BP 122/72
[2024-03-30] MEDS ORDERED: Zaleplon 5 MG/CAP PO SCH (21:00)
[2024-03-30] MEDS ORDERED: methylPREDNISolone Sod Succ 40 MG/ML SDV IV SCH (21:00)
[2024-03-31] VITALS (17 sets, daily range): BP systolic 120–173; BP diastolic 45–98
--- NOTE | 2024-03-31 00:42 | NUR ---
PATIENT MEDICATED AND DECLINES BIPAP AT THIS TIME. PATIENT IS EDUCATED ON DECISION AND EDUACTED ON RISK RELATED TO DECISON LEADING UP TO . PATIENT VERBALIZED UNDERSTANDING AND VERBALIZED WANTING A BREAK TONIGHT FROM BI PAP. PROVIDER MADE AWARE. CALL LIGHT IS WITHIN REACH.
[2024-03-31] MEDS ORDERED: SODIUM CHLORIDE 0.9% 0 ML IV ONE (01:54)
[2024-03-31 04:57] LABS: HEMATOCRIT 43.2 % (37.0-47.0); HEMOGLOBIN 12.5 g/dl (12.0-16.0); MEAN CELL VOLUME 105.1 fL CALC (80.0-100.0); MEAN CORPUSCULAR HGB 30.4 pG CALC (26.0-32.0); MEAN CORPUSCULAR HGB CONC 28.9 g/dL CAL (32.0-36.0); RED BLOOD COUNT 4.11 mill/uL (4.20-5.60); RED CELL DISTRI WIDTH 14.3 % (11.5-15.5)
[2024-03-31 05:07] LABS: ALBUMIN 3.9 g/dL (3.2-5.0); BILIRUBIN, TOTAL 0.3 mg/dL (0.02-1.3); CREATININE 0.6 mg/dL (0.5-1.0); MAGNESIUM 1.8 mg/dL (1.6-2.3); TOTAL PROTEIN 6.3 g/dL (6.3-8.2)
[2024-03-31 05:10] LABS: POTASSIUM 5.8 mmol/l (3.5-5.1)
--- NOTE | 2024-03-31 08:00 | NUR ---
pt awake sitting at the side of the bed; no apparent distress noted; pt offers no complaints at this time; assessment completed; pt alert and oriented; offers no complaints of pain; no n/v noted; resp even and unlabored; lungs with wheezing throughout; skin color wnl; o2 per nc at 3L; nnp cough noted; hr reg; wk pedal pulses; no edema noted; sr on monitor; abd soft with bs present; no bm noted per machine sign writer; purewick intact with clear yellow urine; #20 to rfa infiltrated; no iv access; abrasion noted to right knee with drsg intact, abrasion noted left abd; drsg cdi to right foot; plan of care/ meds explained; call light within reach; will continue to monitor
--- NOTE | 2024-03-31 08:09 | NUR ---
awake sitting at the side of the bed; offers no complaints; purewick intact; o2 per nc; call light within reach; will continue to monitor
[2024-03-31] MEDS ORDERED: SODIUM POLYSTYRENE SULFONATE 15 G/BTL POWDER PO SCH (08:30)
--- NOTE | 2024-03-31 10:08 | NUR ---
pt awake in bed; conversing on cell phone; o2 per nc; purewick intact; call light within reach; will continue to monitor
[2024-03-31] MEDS ORDERED: NICOTINE TRANSDERMAL 21 MG/PATCH TD SCH (12:00)
--- NOTE | 2024-03-31 12:19 | NUR ---
awake in bed; confusion noted; taking coversing with this signwriter about the "children having fun"; points out the children at the nursing station; sr on monitor; o2 per nc; call light within reach; will continue to monitor
--- NOTE | 2024-03-31 13:30 | NUR ---
Dr Vang present at bedside to assess pt and discuss plan of care; Dr Branch informed per this typewriter assembler increase confusion; made aware pt has refused kayexlate
--- NOTE | 2024-03-31 14:06 | NUR ---
Dr Vang called per web content writer with abd report; pt refused bipap; iv infiltrated; orders received for central line if needed
--- NOTE | 2024-03-31 14:36 | NUR ---
chart writer unable to locate camera; wounds to right knee and right foot cleansed with soap and water; skin abrasion noted to right elbow
--- NOTE | 2024-03-31 16:00 | NUR ---
complete bed bath provided with linen change; pt incont of lg yellow urine; purewick re-applied; repositioned in bed; o2 per nc; call light within reach; will continue to monitor
--- NOTE | 2024-03-31 17:43 | NUR ---
#22 started to inner right palm/thumb x1 attempt per Darrius Valdez RN; #22 started to left inner arm x1 attempt per Darrius Valdez RN; lines flushed and patent; central line placed on hold for now
--- NOTE | 2024-03-31 18:15 | NUR ---
resting in bed with eyes closed; no apparent distress noted; o2 per nc; purewick intact; sr on monitor; call light within reach; will continue to monitor
--- NOTE | 2024-03-31 20:00 | NUR ---
PATIENT RESTING IN BED. VITAL SIGNS STABLE. PATIENT IS DROWSY. BED LOCKED IN LOWEST POSITION AND ALL PERSONAL BELONGINGS/CALL LIGHT WITHIN REACH. PUREWICK INTACT AND PATIENT REMAINS ON 3L NC.
--- NOTE | 2024-03-31 22:00 | NUR ---
PATIENT WOKE UP SCREAMING ON BIPAP AND RESPIRATORY THERAPIST PLACED HER BACK ON 3L NC. PATIENT IS ALERT AND ORIENTED TO SELF AND TIME BUT DOES NOT KNOW WHERE SHE IS CURRENTLY. REORIENTED PATIENT AND PROVIDED SNACK. PATIENT SITTING ON SIDE OF BED EATING WITH BED ALARM ACTIVATED. PATIENT STATES ALL OTHER NEEDS MET AT THIS TIME.
[2024-04-01] VITALS (25 sets, daily range): BP systolic 131–179; BP diastolic 58–112
--- NOTE | 2024-04-01 | NUR ---
PATIENT RESTING IN BED. VITAL SIGNS STABLE. BED ALARM ON WITH BED LOCKED AND IN LOWEST POSITION. PATIENT REMAINS ON 3L NC.
--- NOTE | 2024-04-01 02:00 | NUR ---
PATIENT RESTING IN BED. NO CHANGE SINCE PREVIOUS ASSESSMENT.
--- NOTE | 2024-04-01 04:00 | NUR ---
PATIENT RESTING IN BED. VITAL SIGNS STABLE. PATIENT STATES ALL NEEDS MET AT THIS TIME.
--- NOTE | 2024-04-01 05:00 | NUR ---
PATIENT AWAKE AND YELLING THAT THERE ARE HORSES IN HER ROOM AND IS ASKING FOR HER DAUGHTER JAIME. PATIENT IS ORIENTED TO PERSON, PLACE AND TIME. PUREWICK OUT OF PLACE AND PATIENT WAS INCONTINENT OF URINE. MAI-CARE AND SKIN CARE COMPLETED WELL A FULL LINEN/GOWN CHANGE. PUREWICK REPLACED. BED ALARM ACTIVATED AND PATIENT IS RESTING COMFORTABLY IN BED.
[2024-04-01 05:03] LABS: HEMATOCRIT 44.3 % (37.0-47.0); HEMOGLOBIN 12.7 g/dl (12.0-16.0); MEAN CELL VOLUME 105.2 fL CALC (80.0-100.0); MEAN CORPUSCULAR HGB 30.2 pG CALC (26.0-32.0); MEAN CORPUSCULAR HGB CONC 28.7 g/dL CAL (32.0-36.0); RED BLOOD COUNT 4.21 mill/uL (4.20-5.60); RED CELL DISTRI WIDTH 14.7 % (11.5-15.5)
[2024-04-01 05:10] LABS: ALBUMIN 3.8 g/dL (3.2-5.0); BILIRUBIN, TOTAL 0.3 mg/dL (0.02-1.3); CREATININE 0.7 mg/dL (0.5-1.0); MAGNESIUM 1.9 mg/dL (1.6-2.3); TOTAL PROTEIN 6.1 g/dL (6.3-8.2)
[2024-04-01 05:35] LABS: POTASSIUM 5.2 mmol/l (3.5-5.1)
--- NOTE | 2024-04-01 07:20 | NUR ---
pt resting in bed with eyes closed; no apparent distress noted; assessment completed at this time; pt arousable to loud verbal stimuli; lethargic; offers no complaints of pain; no n/v noted; resp even and unlabored; lungs coarse with wheezing noted; skin color wnl; o2 per nc at 3L; pt noted to desat freq; hr reg;wk pedal pulses; no edema noted; sr on monitor; abd soft/ distended with bs present; no bm noted per engineering writer; purewick intact with clear yellow urine; #22 to adan/inner lac; #22 to right inner hand; no redness or edema noted at sites; wounds to right foot and right knee with drsg cdi; abrasion noted to abd and left elbow; repositioned; call light within reach; will continue to monitor closely
--- NOTE | 2024-04-01 07:35 | NUR ---
RT at bedside; o2 sats noted dropping to 77%; pt lethargic, slow to respond; bipap placed per RT
--- NOTE | 2024-04-01 08:49 | NUR ---
Dr Vang present at bedside to assess pt and and discuss plan of care
--- NOTE | 2024-04-01 10:03 | NUR ---
resting in bed with eyes closed; bipap intact; sr on monitor; purewick intact; call light within reach; will continue to monitor
--- NOTE | 2024-04-01 11:57 | NUR ---
resting in bed with eyes closed; easily arousable; offers no complaints of pain; pt admits to being cold; lg urinary incont noted; pericare/linen change/ purewick completed; will continue to monitor
--- NOTE | 2024-04-01 13:00 | NUR ---
Dr Nelson at bedside to place TLC to [facility] under veterinary assistant technician; pt tolerated well; will continue to monitor
[2024-04-01] MEDS ORDERED: VANCOMYCIN HCL 1,250 MG in SODIUM CHLORIDE 0.9% 225 ML IV SCH (14:00)
--- NOTE | 2024-04-01 14:00 | NUR ---
resting in bed with eyes closed; repositioned; call light within reach; will continue to monitor
--- NOTE | 2024-04-01 14:06 | NUR ---
S: CHARLOTTE CHAHAL is a 63 F who presents with CELLULITIS OF RIGHT FOOT TOE. All medications in patient's chart were reviewed. O: VS: BP 179/101, P 71, RR 19,T 97.4F W 103kg, HT 69IN, Scr= 0.7,CrCl= 100ml/min TROUGH=11 A: Blood culture is pending P: Patient is on CEFEPIME 2GM IV Q12H AND VANCOMYCIN 1.25gm IV Q12H Vancomycin ordered for pharmacy to dose. continue Vancomycin 1.25gm IV Q12H. Vancomycin trough is drawn before the 4th dose on 04/03/24 @0130. Vancomycin goal trough is between 10-15 mcg/ml. Pharmacy will follow and or advise on antibiotics use as needed.
--- NOTE | 2024-04-01 15:00 | NUR ---
s/o Shawn present at bedside; pt resting with eyes closed; update provided
--- NOTE | 2024-04-01 16:00 | NUR ---
resting in bed with eyes closed; arousable to verbal stimulation; lethargic; purewick intact; sr on monitor; call light within reach; will continue to monitor
[2024-04-01] MEDS ORDERED: hydrALAZINE HCL 20 MG/ML VIAL(1 ML) IV PRN (17:00)
--- NOTE | 2024-04-01 17:38 | NUR ---
s/o present at bedside with Gwyn Mckeon; pt awake and conversing with s/o; hallucinating as well; states "holding a baby" and kids crying
--- NOTE | 2024-04-01 18:15 | NUR ---
pt noted to have self remove bipap; pt noted eating her carlos enrique burnett while lying flat; aspiration explained; o2 per nc placed; placed on bed for stool, no success; pericare provided; sr on monitor; call light within reach
--- NOTE | 2024-04-01 19:15 | NUR ---
PATIENT AWAKE AND ALERT RESTING IN BED. PATIENT IS CALLING OUT VARIOUS NAMES WHO SHE SAYS ARE FAMILY MEMBERS. PATIENT IS VERY ANXIOUS AND WHEN ASKED WHAT CAN BE DONE TO HELP HER FEEL MORE COMFORTABLE SHE SAID "I WANT NARCOTICS, I WANT DILAUDID". PATIENT IS AGREEABLE TO TAKE HER MORNING AND EVENING MEDICATIONS. PER DR. ANNA FREGOSO TO ADMINISTER MORNING DOSE OF CARDIZEM AND METOPROLOL. REPOSITIONED PATIENT AND ASSISTED HER IN SETTING UP BEDSIDE TABLE WITH HER DINNER. SHE STATES SHE IS FEELING BETTER NOW. BED ALARM ACTIVE AND CALL LIGHT WITHIN REACH.
--- NOTE | 2024-04-01 20:40 | NUR ---
PATIENT HAD 1 LARGE INCONTINENT STOOL. BED BATH AND FULL LINEN CHANGE COMPLETED. PATIENT CONTINUES TO ASK FOR NARCOTICS. EDUCATED PATIENT THAT SHE MAY HAVE LORTAB FOR HER PAIN THAT SHE RATED 7/10. PATIENT REFUSED BLOOD GLUCOSE CHECK.
--- NOTE | 2024-04-01 21:31 | NUR ---
PATIENT REPOSITIONED AND ATE THE REST OF HER DINNER THAT SIGNIFICANT OTHER SUNSHINE BROUGHT. ASSISTED HER TO CALL SUNSHINE AND HER SON BERNARDA. PATIENT MEDICATED FOR PAIN AND STATES ALL OTHER NEEDS MET AT THIS TIME.
[2024-04-02] VITALS (22 sets, daily range): BP systolic 132–176; BP diastolic 68–104
--- NOTE | 2024-04-02 | NUR ---
PATIENT RESTING IN BED. VITAL SIGNS STABLE. BED LOCKED IN LOWEST POSITION WITH BED ALARM ON.
--- NOTE | 2024-04-02 02:00 | NUR ---
PATIENT AWAKE AND ORIENTED. PATIENT BROUGHT A CUP OF COFFEE AND MILK. PATIENT STATES SHE IS "FEELING GREAT AND VERY HAPPY". PATIENT REQUESTS TO GET OUT OF BED AND INTO A CHAIR FOR BREAKFAST SO SHE CAN WASH HERSELF UP. REPOSITIONED IN BED AND PILLOWS PLACED UNDER ANKLES WHERE PATIENT REPORTS FEELING DISCOMFORT.
--- NOTE | 2024-04-02 04:30 | NUR ---
PATIENT SITTING UP IN BED. LABS DRAWN AND PATIENT STATES ALL NEEDS MET AT THIS TIME. PATIENT REMAINS ON 3L NC.
[2024-04-02 04:54] LABS: HEMATOCRIT 43.5 % (37.0-47.0); HEMOGLOBIN 12.5 g/dl (12.0-16.0); MEAN CELL VOLUME 105.1 fL CALC (80.0-100.0); MEAN CORPUSCULAR HGB 30.2 pG CALC (26.0-32.0); MEAN CORPUSCULAR HGB CONC 28.7 g/dL CAL (32.0-36.0); RED BLOOD COUNT 4.14 mill/uL (4.20-5.60); RED CELL DISTRI WIDTH 14.5 % (11.5-15.5)
[2024-04-02 05:06] LABS: ALBUMIN 3.4 g/dL (3.2-5.0); BILIRUBIN, TOTAL 0.3 mg/dL (0.02-1.3); CREATININE 0.6 mg/dL (0.5-1.0); MAGNESIUM 1.8 mg/dL (1.6-2.3); TOTAL PROTEIN 5.6 g/dL (6.3-8.2)
[2024-04-02 05:18] LABS: POTASSIUM 5.2 mmol/l (3.5-5.1)
--- NOTE | 2024-04-02 06:00 | NUR ---
PATIENT RESTING IN BED AND STATES SHE WANTS TO TRY TO SLEEP. PATIENT DECLINED GETTING TO THE SIDE OF BED OR ATTEMPTING TO TRANSFER TO CHAIR AND STATED "I JUST GOT COMFORTABLE AND WANT SOME MORE REST". ALL OTHER NEEDS MET AT THIS TIME. CALL LIGHT AND PERSONAL BELONGINGS WITHIN REACH.
--- NOTE | 2024-04-02 07:05 | NUR ---
pt awake in bed; no apparent distress noted; pt offers no complaints; assessment completed at this time; pt alert and oriented; offers no complaints of pain; no n/v noted; resp even and unlabored; lungs coarse with wheezing; o2 per nc at 3L; psych arnp cough noted; pt noted lying in bed eating DD donuts and sandwich; again, aspiration prec explained and pt assisted to sit at the side of the bed; hr reg; wk pedal pulses; no edema noted; sr on monitor; abd soft/ distended with bs present; pt admits to bm last night; purewick intact with clear yellow urine; TLC to [facility] saline locked; all lumens flushed and patent; no redness or edema noted at site; abrasion noted to right elbow; drsg cdi to right foot and right knee; plan of care/ am meds explained; call light within reach; will continue to monitor
--- NOTE | 2024-04-02 08:30 | NUR ---
Dr Vang present at bedside to assess pt and discuss plan care of care
--- NOTE | 2024-04-02 10:02 | NUR ---
pt awake in bed; offers complaints pain; iv intact; o2 per nc; call light within reach; will continue to monitor
--- NOTE | 2024-04-02 11:59 | NUR ---
awake sitting at the side of the bed eating lunch; offers no complaints; iv intact; sr on monitor; purewick in place; o2 per nc; call light within reach; will continue to monitor
--- NOTE | 2024-04-02 14:14 | NUR ---
resting in bed with eyes closed; no apparent distress noted; iv intact; sr on monitor; o2 per nc; call light within reach
--- NOTE | 2024-04-02 16:00 | NUR ---
awake sitting at the side of the bed eating pie and burritos brought in per s/o; no distress noted; iv intact; sr on monitor; purewick intact; call light within reach; will continue to monitor
--- NOTE | 2024-04-02 18:12 | NUR ---
pt awake in bed; offers no complaints; iv intact; purewick in place; sr on monitor; call light within reach
--- NOTE | 2024-04-02 19:30 | NUR ---
PATIENT SITTING ON SIDE OF BED. SETUP WITH DINNER TRAY. PATIENT STATES SHE HAD A GOOD DAY AND IS FEELING READY TO GO HOME. ALL OTHER NEEDS MET AT THIS TIME. BED LOCKED IN LOWEST POSITION AND CALL LIGHT WITHIN REACH.
--- NOTE | 2024-04-02 21:30 | NUR ---
PATIENT HAD A BOWEL MOVEMENT. PARTIAL BED BATH AND LINEN CHANGE COMPLETED. PATIENT MEDICATED FOR GENERALIZED PAIN. PATIENT IS VISIBLY ANXIOUS AND STATES SHE WOULD LIKE HER KLONOPIN WHEN SHE CAN HAVE IT NEXT. DISCUSSED TIME IT CAN BE ADMINISTERED AND PATIENT IS AGREEABLE. PATIENT STATES SHE IS READY TO GET SOME SLEEP SO LIGHTS TURNED OFF, QUIET ENVIRONMENT WITH ALL BELONGINGS AND CALL [facility]STER WITHIN REACH. PATIENT ASSISTED TO A SUPINE POSITION IN BED.
--- NOTE | 2024-04-02 23:56 | NUR ---
PATIENT RESTING IN BED. VITAL SIGNS STABLE. PATIENT'S ANXIETY HAS RESOLVED.
[2024-04-03] VITALS (19 sets, daily range): BP systolic 117–196; BP diastolic 56–136
[2024-04-03 01:50] LABS: HEMATOCRIT 43.7 % (37.0-47.0); HEMOGLOBIN 12.5 g/dl (12.0-16.0); MEAN CELL VOLUME 104.8 fL CALC (80.0-100.0); MEAN CORPUSCULAR HGB CONC 28.6 g/dL CAL (32.0-36.0); RED BLOOD COUNT 4.17 mill/uL (4.20-5.60); RED CELL DISTRI WIDTH 14.4 % (11.5-15.5)
--- NOTE | 2024-04-03 01:52 | NUR ---
PATIENT AWAKE AND FEELING ANXIOUS. PATIENT ASSISTED TO CHANGE HER BRIEF. INCONTINENT VOID X1.
[2024-04-03 02:13] LABS: ALBUMIN 3.7 g/dL (3.2-5.0); BILIRUBIN, TOTAL 0.3 mg/dL (0.02-1.3); CREATININE 0.7 mg/dL (0.5-1.0); MAGNESIUM 1.8 mg/dL (1.6-2.3); POTASSIUM 4.7 mmol/l (3.5-5.1); TOTAL PROTEIN 6.1 g/dL (6.3-8.2)
--- NOTE | 2024-04-03 04:26 | NUR ---
PATIENT RESTING IN BED ASSISTED IN REPOSITIONING AND BROUGHT PATIENT A SODA. PATIENT STATES SHE IS FEELING VERY ANXIOUS. PATIENT IS ALERT AND ORIENTED X3 BUT HIT HER CALL LIGHT TO ASK ABOUT "TAKING THE TRASH OUT". REASSURED PATIENT THAT SHE IS SAFE, VITAL SIGNS ARE STABLE AND SHE CAN TRY TO GET SOME REST.
--- NOTE | 2024-04-03 06:00 | NUR ---
PATIENT RESTING IN BED. NO CHANGE SINCE PREVIOUS ASSESSMENT.
--- NOTE | 2024-04-03 07:52 | NUR ---
S: CHARLOTTE CHAHAL is a 63 F who presents with cellulitis. She has a history of diabetes, hypertension, COPD, and chronic respiratory failure. All medications in patient's chart were reviewed. O: VS: BP 177/94 mmHg, P 91 bpm, RR 13 breaths/min, T 97.6 F W 103.7 kg, HT 69 in, Scr= 0.7,CrCl= 104.1 ml/min A: Blood culture shows no growth after 5 days incubation. P: Patient is on cefepime 2 g IV Q12H. Vancomycin ordered for pharmacy to dose. Continue Vancomycin 1250 mg IV Q12H. Vancomycin trough is drawn on 04/04 @ 1330, 30 minutes prior to the 1400 dose. Vancomycin goal trough is between 10-15 mcg/ml. Pharmacy will follow and or advise on antibiotics use as needed.
--- NOTE | 2024-04-03 08:00 | NUR ---
REPORT RECEIVED FROM NIGHT NURSE. THADDEUS X2 TO PERSON AND TIME. PATIENT BELIEVES SHE IS IN A POLICE STATION. REORIENTED TO WHERE SHE IS BUT IS STILL NOT COMPREHENDING WHERE SHE IS. PATIENT ALSO STATES THERE ARE CHILDREN RUNNING AROUND OUTSIDE HER ROOM. REASSURED THERE IS NO ONE RUNNING AROUND OUTSIDE HER ROOM. EXPIRATORY WHEEZE IN ALL CAMILO. ON 3L O2 NC. S1S2 NOTED, SINUS ON TELE. HYDRALAZINE GIVEN FOR SYSTOLIC BP OVER 170. UPPER PULSES STRONG, LOWER WEAK. PATIENT VOIDED IN DIAPER AND WAS CHANGED AND HAD PUREWICK READJUSTED. SKIN WARM/DRY. DRESSING IN PLACE OVER RIGHT KNEE AND ON TOE. WOUND ON ELBOW AND ON ABDOMEN NOTED. SCATTERED BRUISING ON ARMS NOTED. CALL LIGHT IN REACH. VSS.
[2024-04-03] MEDS ORDERED: LORazepam 2 MG/ML IV PRN (09:00)
--- NOTE | 2024-04-03 10:00 | NUR ---
PATIENT GIVEN PRN ATIVAN FOR ANXIETY. PLACED ON BIPAP AT 32%. ALL NEEDS MET. CALL LIGHT IN REACH. VSS.
--- NOTE | 2024-04-03 12:00 | NUR ---
PATIENT ASLEEP ON BIPAP AT 45%. ALL NEEDS MET. CALL LIGHT IN REACH. VSS.
[2024-04-03] MEDS ORDERED: LEVALBUTEROL HCL 1.25 MG/3 ML VIAL NEB SCH (13:00)
[2024-04-03] MEDS ORDERED: IPRATROPIUM BROMIDE 0.5 MG/2.5 ML SOL IN SCH (13:00)
--- NOTE | 2024-04-03 14:00 | NUR ---
PATIENT LAYING IN BED ASLEEP. ON BIPAP 45%. ALL NEEDS MET. CALL LIGHT IN REACH. VSS.
--- NOTE | 2024-04-03 16:00 | NUR ---
PATIENT SITTING UP AT SIDE OF BED EATING. PATIENT WAS TAKEN OFF BIPAP AND PUT ON 3L O2 NC. CALL LIGHT IN REACH. VSS.
--- NOTE | 2024-04-03 18:00 | NUR ---
PATIENT SITTING UP AT EDGE OF TALKING ON THE PHONE. ON 3L O2 NC. ALL NEEDS MET. CALL LIGHT IN REACH. VSS.
--- NOTE | 2024-04-03 19:15 | NUR ---
awake. no resp distress. o2 cont per nc. hall monitor shows sinus rhythm. lij tlc in place. pure wick cath in place draining clear yellow urine. refused po fluids. fall precautions cont.
[2024-04-03] MEDS ORDERED: SODIUM CHLORIDE 0.9% 10 ML SYR IV PRN (20:30)
--- NOTE | 2024-04-03 21:45 | NUR ---
refused bipap machine.
[2024-04-03] MEDS ORDERED: SODIUM CHLORIDE 0.9% 10 ML SYR IV SCH (22:00)
[2024-04-04] VITALS (13 sets, daily range): BP systolic 107–175; BP diastolic 63–102
--- NOTE | 2024-04-04 00:01 | NUR ---
sleeps for short intervals then requests water, coffee, tea or snack to eat.
--- NOTE | 2024-04-04 00:50 | NUR ---
awake. c/o anxiety. ativan 1mg ivp given.
--- NOTE | 2024-04-04 02:00 | NUR ---
inc of urine. pt cleansed. pure wick repositioned.
--- NOTE | 2024-04-04 04:25 | NUR ---
blood drawn & sent to lab.
[2024-04-04 05:18] LABS: BASO% 0.1 % (0-3); HEMATOCRIT 42.5 % (37.0-47.0); IMMATURE GRANULOCYTES 1.5 % (0.0-5.0); MEAN CORPUSCULAR HGB 29.9 pG CALC (26.0-32.0); MEAN CORPUSCULAR HGB CONC 28.2 g/dL CAL (32.0-36.0); MONO% 5.1 % (2-13); NEUT# 14.04 thou/uL (2.00-7.15); NEUT% 89.3 % (42-76); RED BLOOD COUNT 4.01 mill/uL (4.20-5.60); RED CELL DISTRI WIDTH 14.3 % (11.5-15.5)
[2024-04-04 05:45] LABS: ALBUMIN 3.5 g/dL (3.2-5.0); BILIRUBIN, TOTAL 0.4 mg/dL (0.02-1.3); CREATININE 0.7 mg/dL (0.5-1.0); MAGNESIUM 1.9 mg/dL (1.6-2.3); POTASSIUM 4.8 mmol/l (3.5-5.1); TOTAL PROTEIN 5.8 g/dL (6.3-8.2)
--- NOTE | 2024-04-04 06:00 | NUR ---
xray here. cxr obtained.
--- NOTE | 2024-04-04 07:45 | NUR ---
PATIENT AXO X3. S1S2 NOTED, SINUS ON TELE. UPPER PULSES STRONG, LOWER WEAK. EXPIRATORY WHEEZES HEARD IN ALL CAMILO. ON 3L O2 NC. ABDOMEN SOFT, BOWEL SOUNDS ACTIVE. SKIN WARM AND DRY. DRESSINGS ON ELBOW, KNEE, AND TOE CDI. ABRASION ON ABDOMEN NOTED. CALL LIGHT IN REACH. VSS.
--- NOTE | 2024-04-04 08:00 | NUR ---
REPORT RECEIVED FROM NIGHT NURSE. PATIENT WAS PLACED ON BIPAP AT 35%. PUREWICK IN PLACE. SINUS ON TELE. CALL LIGHT IN REACH. VSS.
--- NOTE | 2024-04-04 08:30 | NUR ---
PATIENT TAKEN OFF BIPAP AND PLACED ON 3L NC. CALL LIGHT IN REACH. VSS.
[2024-04-04] MEDS ORDERED: FUROSEMIDE 40 MG/4 ML SDV IV SCH (09:00)
[2024-04-04] MEDS ORDERED: methylPREDNISolone Sod Succ 40 MG/ML SDV IV SCH (09:00)
[2024-04-04] MEDS ORDERED: FUROSEMIDE 40 MG/TAB PO SCH (09:00)
--- NOTE | 2024-04-04 10:00 | NUR ---
PT AT BEDSIDE WORKING WITH PATIENT. ON 3L O2 NC. CALL LIGHT IN REACH. VSS.
--- NOTE | 2024-04-04 11:27 | NUR ---
PATIENT GIVEN PRN ATIVAN FOR ANXIETY. PLACED ON BIPAP AT 35%. ALL NEEDS MET. CALL LIGHT IN REACH. VSS.
--- NOTE | 2024-04-04 12:00 | NUR ---
PATIENT SITTING UP AT EDGE OF BED EATING. ON 3L O2. ALL NEEDS MET. CALL LIGHT IN REACH. VSS.
--- NOTE | 2024-04-04 12:51 | NUR ---
SPOKE WITH PT'S SON BERNARDA. UPDATED ON PT'S STATUS AND CURRENT PLAN OF CARE.
--- NOTE | 2024-04-04 14:00 | NUR ---
PATIENT LAYING DOWN IN BED RESTING. ON BIPAP 35%. ALL NEEDS MET. CALL LIGHT IN REACH. VSS.
--- NOTE | 2024-04-04 14:38 | NUR ---
S: CHARLOTTE CHAHAL is a 63 F who presents with COPD exacerbation, cellulitis of toe of right foot. She has a history of diabetes, hypertension, COPD, chronic back pain, bipolar disorder. All medications in patient's chart were reviewed. O: VS: BP: 107/88 mmHg, P:76 bpm, RR: 14 breahts per minute, T: 98.1F W: 107 kg, HT: 69 inches, Scr= 0.7, CrCl= 105.7 ml/min Vancomycin trough 04/04@1335 = 14 A: Blood culture shows no growth after 5 days incubation. Vancomycin trough level within therapeutic goal, however trough has been increasing despite the same dose. P: Patient is on cefepime 2g IV Q12H. Vancomycin ordered for pharmacy to dose. Decrease Vancomycin dose to 1g IV Q12H due to increasing trough levels. Vancomycin trough is drawn before the dose on 04/06 at 02:30. Vancomycin goal trough is between 10-15 mcg/ml. Pharmacy will follow and or advise on antibiotics use as needed.
--- NOTE | 2024-04-04 14:40 | NUR ---
PATIENT BOYFRIEND AT BEDSIDE. PATIENT TAKEN OFF BIPAP PER PATIENT REQUEST AND WAS PLACED ON 3L O2 NC. PATIENT'S BOYFRIEND BROUGHT A MEAL FOR THE PATIENT. CALL LIGHT IN REACH. VSS.
[2024-04-04] MEDS ORDERED: VANCOMYCIN HCL 1 GM in SODIUM CHLORIDE 0.9% 250 ML IV SCH (15:00)
--- NOTE | 2024-04-04 16:00 | NUR ---
PATIENT LAYING IN BED SLEEPING. ON 3L O2. ALL NEEDS MET. CALL LIGHT IN REACH. VSS.
--- NOTE | 2024-04-04 17:39 | NUR ---
PRN ATIVAN GIVEN FOR ANXIETY. DRESSING CHANGES TO ELBOW, KNEE, TOE, AND CENTRAL LINE COMPLETED. PATIENT TOLERATED WELL. PATIENT PLACED BACK ON BIPAP AT 35% AND IS NOW RESTING. CALL LIGHT IN REACH. VSS.
--- NOTE | 2024-04-04 18:00 | NUR ---
PATIENT LAYING IN BED SLEEPING. ON BIPAP 35%. ALL NEEDS MET. CALL LIGHT IN REACH. VSS.
--- NOTE | 2024-04-04 19:15 | NUR ---
pt removed bipap, nc applied. cardiac catheterization technician shows sinus rhythm pacs pvcs. lij tlc in place. pure wick cath in place draining clear yellow urine. fall precautions & bed alarm cont. supper meal given.
--- NOTE | 2024-04-04 22:00 | NUR ---
eyes closed. no distress. cardiac cath lab manager shows sinus rhythm pacs pvcs.
[2024-04-05] VITALS (12 sets, daily range): BP systolic 123–173; BP diastolic 57–104
--- NOTE | 2024-04-05 00:45 | NUR ---
bipap on per rt.
--- NOTE | 2024-04-05 02:15 | NUR ---
pt removed bipap. nc placed.
--- NOTE | 2024-04-05 04:00 | NUR ---
pulse ox dropped to low 80's. attempted to replace bipap but pt refused.
--- NOTE | 2024-04-05 04:45 | NUR ---
blood drawn & sent to lab.
--- NOTE | 2024-04-05 05:34 | NUR ---
snack given per request.
[2024-04-05 05:43] LABS: BASO% 0.1 % (0-3); EOS% 0.3 % (0-8); HEMATOCRIT 41.2 % (37.0-47.0); HEMOGLOBIN 12.1 g/dl (12.0-16.0); IMMATURE GRANULOCYTES 1.7 % (0.0-5.0); LYMPH% 12.6 % (15-41); MEAN CELL VOLUME 105.1 fL CALC (80.0-100.0); MEAN CORPUSCULAR HGB 30.9 pG CALC (26.0-32.0); MEAN CORPUSCULAR HGB CONC 29.4 g/dL CAL (32.0-36.0); MONO% 13.2 % (2-13); NEUT# 8.28 thou/uL (2.00-7.15); NEUT% 72.1 % (42-76); RED BLOOD COUNT 3.92 mill/uL (4.20-5.60); RED CELL DISTRI WIDTH 14.2 % (11.5-15.5)
[2024-04-05 06:07] LABS: ALBUMIN 3.3 g/dL (3.2-5.0); BILIRUBIN, TOTAL 0.5 mg/dL (0.02-1.3); CREATININE 0.6 mg/dL (0.5-1.0); MAGNESIUM 1.8 mg/dL (1.6-2.3); POTASSIUM 4.3 mmol/l (3.5-5.1); TOTAL PROTEIN 5.5 g/dL (6.3-8.2)
--- NOTE | 2024-04-05 07:35 | NUR ---
PT IS RESTING IN BED, ASSESSMENT COMPLETED CHARTED. PT OCCASIONALLY DROPS INTO THE LOW 80S ON OXYGEN BUT REFUSES TO WEAR BIPAP EVEN THOUGH EDUCATED MANY TIMES PER CHIEF SUBSTATION OPERATOR. EDUCATED PT AGAIN AND SHE VERBALIZED UNDERSTANDING BUT SHE SAID " I AM GETTING UP NOW SO I DONT WANT TO WEAR IT." WILL CONTINUE TO KEEP A CLOSE EYE ON PT.
[2024-04-05] MEDS ORDERED: LORazepam 2 MG/ML IV PRN (08:53)
[2024-04-05] MEDS ORDERED: CYCLOBENZAPRINE HCL 5 MG TAB PO PRN (08:55)
--- NOTE | 2024-04-05 09:30 | NUR ---
PT HAD LARGE BM, PT CLEANED UP, LINENS CHANGED, SMALL BED BATH GIVEN. PT IS AOX3, VSS, NSR ON CONTINUOUS CARDIAC MONITORING. BED LOW, CALL LIGHT IN REACH
--- NOTE | 2024-04-05 11:12 | NUR ---
PT IS SLEEPING PEACEFULLY IN BED, VSS, NO COMPLAINTS OR DISTRESS NOTED.
--- NOTE | 2024-04-05 13:00 | NUR ---
PT IS SITTING UP IN BED WATCHING TV. ON 3L NC AND 92% ON THE MONITOR. VSS, RT HOOKED UP VAPOTHERM BEDSIDE TO RUN WHILE PT IS SLEEPING SINCE THE BIPAP IS UNCOMFORTABLE FOR HER. WILL CONTINUE TO MONITOR
--- NOTE | 2024-04-05 15:00 | NUR ---
PT IS SLEEPING IN BED ON CONTINUOUS MONITORING, VSS IN NO DISTRESS AT THIS TIME
[2024-04-05] MEDS ORDERED: SODIUM CHLORIDE 0.9% 250 ML IV ONE (16:07)
--- NOTE | 2024-04-05 16:30 | NUR ---
PT ASKED FOR A PAIN PILL, UPON BRINGING IT IN PT STATES THAT SHE DOESNT WANT "THAT" ONE AND WANTS THE MD TO ORDER HER IV DOSE OF "SOMETHING" MADE PT AWARE THAT I WILL LET MD KNOW, DR STEVENSON BEDSIDE AND STATES HE WILL LOOK INTO IT. WASTED PAIN PILL WITH ESTELLE WHITLEY IN PYXSIS.
--- NOTE | 2024-04-05 18:23 | NUR ---
PT IS SLEEPING PEACEFULLY IN BED ON VAPOTHERM, VSS, NO DISTRESS NOTED
[2024-04-05] MEDS ORDERED: predniSONE 20 MG/TAB PO SCH (21:00)
[2024-04-05] MEDS ORDERED: OLANZapine 5 MG/TAB PO SCH (21:00)
[2024-04-06] VITALS (12 sets, daily range): BP systolic 121–157; BP diastolic 61–92
--- NOTE | 2024-04-06 02:30 | NUR ---
VANCOMYCIN TROUGH DRAWN OFF PATIENT'S CENTRAL LINE. PATIENT IS LETHARGIC ON BIPAP. PATIENT DID NOT RESPOND TO VERBAL STIMULI BUT SPONTANEOUS YELLED OUT "HUNGRY, HUNGRY, HUNGRY" AND THEN CLOSED HER EYES AGAIN.
--- NOTE | 2024-04-06 04:00 | NUR ---
PATIENT REMAINS ON BIPAP. NO APPARENT DISTRESS.
--- NOTE | 2024-04-06 05:58 | NUR ---
PATIENT WOKE UP ON BIPAP SCREAMING VARIOUS DIFFERENT PEOPLE'S NAMES. PATIENT RE-ORIENTED AND RESPIRATORY THERAPY PLACED PATIENT BACK ON VAPO-THERM.
--- NOTE | 2024-04-06 06:12 | NUR ---
PATIENT IS ON VAPO-THERM AND ALERT. SHE IS YELLING FOR PAIN MEDICATION. DISCUSSED THAT THE PATIENT CAN HAVE A LORTAB AND SHE IS AGREEABLE. PATIENT RATES PAIN 10/10 IN HER BACK AND LOWER EXTREMITIES.
--- NOTE | 2024-04-06 06:15 | NUR ---
PATIENT CALLING OUT FOR ANXIETY MEDICATION WELL PAIN MEDICATIONS. PATIENT IS SPECIFICALLY REQUESTING IV ATIVAN. EDUCATED THE PATIENT THAT IT IS ORDERED FOR BREAKTHROUGH ANXIETY AND THAT SHE HAS KLONOPIN AVAILABLE AT THIS TIME. THE PATIENT IS AGREEABLE.
[2024-04-06 06:17] LABS: BASO% 0.1 % (0-3); EOS% 0.8 % (0-8); HEMATOCRIT 43.3 % (37.0-47.0); HEMOGLOBIN 12.6 g/dl (12.0-16.0); IMMATURE GRANULOCYTES 2.7 % (0.0-5.0); LYMPH% 18.5 % (15-41); MEAN CELL VOLUME 104.8 fL CALC (80.0-100.0); MEAN CORPUSCULAR HGB 30.5 pG CALC (26.0-32.0); MEAN CORPUSCULAR HGB CONC 29.1 g/dL CAL (32.0-36.0); MONO% 13.6 % (2-13); NEUT# 7.54 thou/uL (2.00-7.15); NEUT% 64.3 % (42-76); RED BLOOD COUNT 4.13 mill/uL (4.20-5.60); RED CELL DISTRI WIDTH 14.1 % (11.5-15.5)
[2024-04-06 06:24] LABS: ALBUMIN 3.3 g/dL (3.2-5.0); ALKALINE PHOSPHATASE 106 u/l (38-126); BILIRUBIN, TOTAL 0.5 mg/dL (0.02-1.3); BUN 35 mg/dL (8-23); BUN/CREATININE RATIO 62 (12-20 (CALC)); CHLORIDE 93 mmol/l (95-108); CREATININE 0.6 mg/dL (0.5-1.0); ESTIMATED GFR 100 ML/MIN (>=90 (CALC)); MAGNESIUM 1.9 mg/dL (1.6-2.3); POTASSIUM 4.4 mmol/l (3.5-5.1); SGOT/AST 25 u/l (9-36); SODIUM 138 mmol/l (137-146); TOTAL PROTEIN 5.4 g/dL (6.3-8.2)
[2024-04-06 06:35] LABS: CARBON DIOXIDE 51 mmol/l (22-30)
--- NOTE | 2024-04-06 08:00 | NUR ---
REPORT RECEIVED FROM NIGHT NURSE. PATIENT AXO X3. S1S2 NOTED, SINUS ON TELE. WHEEZES HEARD THROUGHOUT LUNGS, ON VAPOTHERM 20L/35%, NO SOB NOTED. ABDOMEN SOFT, NONTENDER, WITH ACTIVE BOWEL SOUNDS. HAD ONE BOWEL MOVEMENT IN BED THAT WAS CLEANED UP. SKIN WARM AND DRY. DRESSINGS ON KNEE AND TOE CDI. ALL NEEDS MET. CALL LIGHT IN REACH. VSS.
[2024-04-06] MEDS ORDERED: methylPREDNISolone Sod Succ 40 MG/ML SDV IV SCH (09:00)
--- NOTE | 2024-04-06 09:00 | NUR ---
DR. STEVENSON AT BEDSIDE TO ASSESS PT.
--- NOTE | 2024-04-06 09:20 | NUR ---
CXR COMPLETED. PT REPOSITIONED AND GIVEN BLANKET. SLEEPING. CALL LIGHTIN REACH.
--- NOTE | 2024-04-06 10:00 | NUR ---
PATIENT LAYING IN BED SLEEPING. ON 10L O2 NC. ALL NEEDS MET. CALL LIGHT IN REACH. VSS.
--- NOTE | 2024-04-06 10:55 | NUR ---
S: CHARLOTTE CHAHAL is a 63 F who presents with cellulitis. She has a history of COPD, CHF, A-fib, diabetes, obesity, and bipolar disorder. All medications in patient's chart were reviewed. O: VS: BP 129/76 mmHg, P 86 bpm, RR 18 breaths/min, T 97 F W 107.3 kg, HT 69 in, Scr= 0.6,CrCl= 123.5 ml/min A: Blood culture shows no growth after 5 days incubation. Vancomycin trough on 04/06 @ 0230 is 10 P: Patient is on cefepime 2 g IV Q12H. Vancomycin ordered for pharmacy to dose. Continue Vancomycin 1 g IV Q12H. Vancomycin trough is drawn before the dose on 04/08 @ 1430. Vancomycin goal trough is between 10-15 mcg/ml. Pharmacy will follow and or advise on antibiotics use as needed.
--- NOTE | 2024-04-06 11:15 | NUR ---
PATIENT PLACED ON BIPAP AT 35%. LAYING DOWN IN BED ASLEEP.
--- NOTE | 2024-04-06 14:00 | NUR ---
PATIENT LAYING DOWN IN BED SLEEPING. ON BIPAP AT 35%. ALL NEEDS MET. CALL LIGHT IN REACH. VSS.
--- NOTE | 2024-04-06 15:36 | NUR ---
PATIENT WOKE UP AND RIPPED BIPAP OFF. REFUSING TO PUT BACK ON SO PLACED ON 10L HIGH FLOW. CALL LIGHT IN REACH. VSS.
--- NOTE | 2024-04-06 17:15 | NUR ---
PATIENT SITTING UP IN BED EATING. BOYFRIEND AT BEDSIDE. DRESSING CHANGE COMPLETE TO RIGHT ELBOW, RIGHT KNEE, AND RIGHT LITTLE TOE. PATIENT TOLERATED WELL. ON 10L O2 NC. ALL NEEDS MET. CALL LIGHT IN REACH. VSS.
--- NOTE | 2024-04-06 18:15 | NUR ---
PRN ATIVAN GIVEN FOR ANXIETY. PATIENT IS LAYING DOWN TO SLEEP. ON 10L O2 NC. PUREWICK IN PLACE. ALL NEEDS MET. CALL LIGHT IN REACH. VSS.
--- NOTE | 2024-04-06 19:56 | NUR ---
PATIENT SITTING UP ON SIDE OF BED EATING A SNACK AND ON THE PHONE WITH HER SIGNIFICANT OTHER SUNSHINE. PATIENT STATES ALL NEEDS MET AT THIS TIME.
[2024-04-06] MEDS ORDERED: OLANZapine 5 MG/TAB PO SCH (21:00)
--- NOTE | 2024-04-06 23:30 | NUR ---
PATIENT PROVIDED WITH A HEALTHY CHOICE MICROWAVE MEAL. PATIENT STATES SHE IS STILL FEELING ANXIOUS. ASSISTED BACK INTO BED AFTER SITTING ON THE SIDE OF THE BED FOR APPROXIMATELY THE PAST 1.5 HOURS. LINENS CHANGED. PARTIAL BED BATH COMPLETED WELL GOWN CHANGE. PUREWICK REPLACED. PATIENT AGREEABLE TO GOING BACK ON BIPAP ONLY IF SHE IS ABLE TO GET IV ATIVAN. DOSE MAY BE ADMINISTERED AT 0014. NOTIFIED RT AND PATIENT IS AGREEABLE WITH THIS PLAN. PATIENT WOULD LIKE TO REMAIN ON NC UNTIL ABLE TO RECEIVE DOSE.
--- NOTE | 2024-04-06 23:50 | NUR ---
PATIENT HAS CALLED OUT REPEATEDLY OVER THE LAST 20 MINUTES FOR THE NURSE TO ASK WHEN SHE WILL GET IV ATIVAN. DESPITE BEING TOLD THAT IT CANNOT BE ADMINISTERED UNTIL 0014 AT THE EARLIEST. EDUCATED PATIENT THAT THE MEDICATION IS NOT GOING TO BE GIVEN AFTER DISCHARGE AND ONLY TO BE USED FOR BREAKTHROUGH ANXIETY. THE PATIENT THEN STATED "I KNOW, THAT'S WHY I WANT TO GET IT MUCH POSSIBLE WHILE I AM HERE".
[2024-04-07] VITALS (13 sets, daily range): BP systolic 98–163; BP diastolic 51–106
--- NOTE | 2024-04-07 02:00 | NUR ---
ASSESSMENT UNCHANGED. PATIENT ON BIPAP.
--- NOTE | 2024-04-07 04:15 | NUR ---
ASSESSMENT UNCHANGED. PATIENT ON BIPAP.
--- NOTE | 2024-04-07 04:52 | NUR ---
PATIENT JUST WOKE UP ON BIPAP RESTLESS AND SAT HERSELF UP ON THE SIDE OF THE BED.
[2024-04-07 05:37] LABS: BASO% 0.1 % (0-3); HEMOGLOBIN 11.8 g/dl (12.0-16.0); LYMPH% 6.4 % (15-41); MEAN CELL VOLUME 103.1 fL CALC (80.0-100.0); MEAN CORPUSCULAR HGB 30.4 pG CALC (26.0-32.0); MEAN CORPUSCULAR HGB CONC 29.5 g/dL CAL (32.0-36.0); MONO% 4.6 % (2-13); NEUT# 9.06 thou/uL (2.00-7.15); NEUT% 83.9 % (42-76); RED BLOOD COUNT 3.88 mill/uL (4.20-5.60); RED CELL DISTRI WIDTH 13.9 % (11.5-15.5)
[2024-04-07 05:42] LABS: ALBUMIN 3.2 g/dL (3.2-5.0); BILIRUBIN, TOTAL 0.3 mg/dL (0.02-1.3); CREATININE 0.5 mg/dL (0.5-1.0); MAGNESIUM 1.8 mg/dL (1.6-2.3); POTASSIUM 4.6 mmol/l (3.5-5.1); TOTAL PROTEIN 5.2 g/dL (6.3-8.2)
--- NOTE | 2024-04-07 05:46 | NUR ---
PATIENT HAD 1 INCONTINENT STOOL AND URINE. PATIENT IS SINGING OUT LOUD. SHE STATES SHE IS AT [facility] RIGHT NOW AND IT IS 1994 CURRENTLY. PATIENT IS DEMANDING MEDICATION FOR 10/10 PAIN. EXPLAINED TO THE PATIENT THAT ONCE SHE IS CLEANED AND REPOSITIONED PAIN MEDICATION WILL BE ADMINISTERED. PATIENT CONTINUES TO ASK REPEATEDLY FOR PAIN MEDICATION DESPITE REDIRECTION. MAI-CARE COMPLETED AND PURE WICK REPLACED. BED LOCKED IN LOWEST POSITION, ALL PERSONAL BELONGINGS AND CALL LIGHT IS WITHIN REACH.
--- NOTE | 2024-04-07 07:35 | NUR ---
report received from Darrius Morales RN; care assumed
--- NOTE | 2024-04-07 08:00 | NUR ---
pt resting in bed with eyes closed; easily aroused; pt offers no complaints; no apparent distress noted; assessment completed at this time; pt alert and oriented; admits to pain, prev medicated; no n/v noted; resp even and unlabored; lungs clear with exp wheezing; skin color wnl; o2 per HF nc at 12L; adjunct writing instructor cough noted; hr reg; strong pulses; no edema noted; sr on monitor; abd soft/ distended with bs present; no bm noted per technical report writer; purewick intact with clear yellow urine; TLC to LIJ saline locked; no redness or edema noted at site; dressing cdi to right knee and right foot; blanchable redness noted to coccyx; plan of care/am meds explained; call light within reach; will continue to monitor
--- NOTE | 2024-04-07 08:25 | NUR ---
Dr Vang present at bedside to assess pt and discuss plan of care
[2024-04-07] MEDS ORDERED: FUROSEMIDE 20 MG/TAB PO SCH (09:00)
[2024-04-07] MEDS ORDERED: predniSONE 20 MG/TAB PO SCH (09:30)
--- NOTE | 2024-04-07 09:32 | NUR ---
PT present at bedside
--- NOTE | 2024-04-07 10:09 | NUR ---
pt awake sitting at the side of bed; OT present at bedside; o2 per nc; iv intact; purewick intact; call light within reach; will continue to monitor
--- NOTE | 2024-04-07 11:30 | NUR ---
pt cleansed for XLG urinary incont; linens changed; purewick placed with brief; repositioned; will continue to monitor
--- NOTE | 2024-04-07 12:01 | NUR ---
pt sitting at the side of the bed eating lunch; offers no complaints; iv intact; sr on monitor; call light within reach
--- NOTE | 2024-04-07 14:00 | NUR ---
SR ON MONITOR; O2 PER NC; CALL LIGHT WITHIN REACH; WILL CONTINUE TO MONITOR
--- NOTE | 2024-04-07 16:12 | NUR ---
pt resting in bed with eyes closed; no apparent distress noted; o2 per nc; sr/pac; purewick intact; call light within reach; will continue to monitor
--- NOTE | 2024-04-07 18:02 | NUR ---
awake sitting at the side of the bed; offers no complaints; iv intact; purewick intact; o2 per nc; call light within reach
--- NOTE | 2024-04-07 19:40 | NUR ---
report rec'd; care assumed; off going nurse assists with back to bed; reposition; purewik replacement and comfort measures.
--- NOTE | 2024-04-07 19:47 | NUR ---
pt resting in bed asking for the "shot" so she can go to sleep; educated regarding mediatin schedule and administration, stating that she has p.o. medications that we need to try first for anxiety; pt states I can already tell you they aren't going to work; informed pt of MD orders and reminded that we have to try them first; pt states compliance; no apparent distress noted; assessment completed at this time; pt alert and oriented; complains of back pain; medicated as ordered; no n/v noted; resp even and unlabored; lungs clear with exp wheezing; pt SOB w/ minimal exertion; skin color wnl; o2 per HF nc at 10L; no edema noted; sr on monitor; abd soft/ distended with bs present; no bm noted at this time; purewick remains intact with clear yellow urine; TLC to LIJ saline locked; no redness or edema noted at site; dressing cdi to right knee and right foot; blanchable redness noted to coccyx; call light within reach; will continue to monitor
--- NOTE | 2024-04-07 21:00 | NUR ---
pt requeting "shot"; states I waited to let the pill work like you asked; it didn't work; so can I have the shot now; medicated as ordered; purewick putting out lear yellow urine; comfort measures provided; pt states some relief of pain from previous medication; call covington within reach.
--- NOTE | 2024-04-07 23:05 | NUR ---
pt resting with eyes closed; HF nc at 10L in place; no s/s of distress noted; call covington within reach,; easily visible from nurses station for safety.
[2024-04-08] VITALS (13 sets, daily range): BP systolic 110–163; BP diastolic 51–91
--- NOTE | 2024-04-08 01:00 | NUR ---
o2 sats dropping with good waveform noted; pt enouraged to cough and deep breath with poor effort noted by patient; RT to bedside for bi-pap placement
--- NOTE | 2024-04-08 01:44 | NUR ---
pt self removes bi-pap mask when asked why pts answer makes no sense; talking about walking home; her mom said she could etc.. attempts to reorient not sucessful; RT at bedside as well; HF o2 via nc placed back on pt @ 10L; comaplins of leg pain and generalized discomfort; medicated as ordered; will continue to monitor.
--- NOTE | 2024-04-08 01:55 | NUR ---
R foot cleansed with soap and water; pat dry; slight reddened area noted between 4th & 5th digit; gauze placed as barrier to prevent further chafing; pt tolerated w/o inident.
--- NOTE | 2024-04-08 04:34 | NUR ---
pt continues resting with eyes closed; HF nc at 10L in place; no s/s of distress noted; call covington within reach,; easily visible from nurses station for safety.
--- NOTE | 2024-04-08 06:18 | NUR ---
pt resting with eyes closed; HF nc at 10L in place; no s/s of distress noted; pure wick eptied of 800mL for a total of 2100mL this shift: call covington within reach,; easily visible from nurses station for safety
--- NOTE | 2024-04-08 07:10 | NUR ---
pt awake in bed; no apparent distress noted; assessment completed at this time; pt alert to person; confusion noted; pt yelling loudly for her dog "Nika"; admits to pain; will medicate; no n/v noted; resp even and unlabored; lungs coarse with exp wheezing; skin color wnl; o2 per nc at 10L; hr reg; strong pulses; no edema noted; sr/pac on monitor; abd soft/ distended with bs present; no bm noted per residential mortgage underwriter; purewick intact with clear yellow urine; brief cdi; TLC to LIJ saline locked; dressing cdi; no redness or edema noted at site; dressings cdi to right knee and right foot; pt continues to yell out loudly; plan of care/ am meds explained; call light within reach; will continue to monitor
--- NOTE | 2024-04-08 08:25 | NUR ---
Dr Vang present at bedside to assess pt and discuss plan of care; MD aware of pts pain and verbal orders received to give flexeril; will continue to monitor
--- NOTE | 2024-04-08 10:01 | NUR ---
resting in bed with eyes closed; o2 per nc; sr on monitor; purewick intact; call light within reach; will continue to monitor
--- NOTE | 2024-04-08 12:00 | NUR ---
resting in bed with eyes closed; no apparent distress noted; sr on monitor; purewick intact; o2 per nc; call light within reach; will continue to monitor
--- NOTE | 2024-04-08 14:11 | NUR ---
resting in bed with eyes closed; o2 reapplied; purewick in place; pt instructed to sit at side of bed for lunch; pt quickly drifts back to sleep; iv intact; will continue to monitor
--- NOTE | 2024-04-08 15:14 | NUR ---
resting in bed; arousable; quickly drift back to sleep; unable to take po meds; Dr Vang informed of lethargic state; pt last received ativan at 0912; poc glucose 180; abd to be done
--- NOTE | 2024-04-08 16:00 | NUR ---
resting with eyes closed; bipap intact and maintained; sr on monitor; call light within reach; will continue to monitor
--- NOTE | 2024-04-08 17:58 | NUR ---
pt resting in bed with eyes closed; no distress noted; iv intact; bipap intact and maintained; purewick intact; meal held d/t alicia for bipap; call light within reach
--- NOTE | 2024-04-08 18:39 | NUR ---
pt has self removed bipap; o2 per nc applied
--- NOTE | 2024-04-08 18:50 | NUR ---
awake. pt asked for her mother. o2 cont per nc. telemetry monitor shows sinus rhythm pacs pvcs. lij tlc in place. pure wick cath in place & draining well. fall precautions & bed alarm conts.
--- NOTE | 2024-04-08 20:30 | NUR ---
awake. meds given. supper meal given.
--- NOTE | 2024-04-08 22:00 | NUR ---
eyes closed. o2 cont per nc. no apparent distress.
[2024-04-09] VITALS (11 sets, daily range): BP systolic 121–153; BP diastolic 58–88
--- NOTE | 2024-04-09 00:01 | NUR ---
eyes closed but awakens often. quality assurance monitor shows sinus rhythm pacs pvcs.
--- NOTE | 2024-04-09 01:30 | NUR ---
incont of stool. pt cleansed. new pure wick applied.
--- NOTE | 2024-04-09 04:00 | NUR ---
eyesclosed. no distress. o2 cont per hfnc. quality assurance monitor final shows sinus rhythm pacs pvcs.
--- NOTE | 2024-04-09 06:00 | NUR ---
awake. no distress. o2 cont per hfnc.
--- NOTE | 2024-04-09 07:05 | NUR ---
pt awake in bed; pt screaming "HELP" very very loudly; designer writer in to assess pt; pt appears in no distress noted; pt alert and oriented to PPT; admits to pain; denies receiving pain med only "Tylenol"; no n/v noted; resp even and unlabored; lungs noted with faint exp wheezing; skin color wnl; pt states that her "air" has been removed; pt instructed to use hand and feel NC that was in her nose; o2 per nc at 8L; inpatient coder cough noted; hr reg; strong pulses; no edema noted; sr on monitor; abd soft with bs present; no bm noted per designer writer; purewick intact; brief in place; TLC to LIJ saline locked; no redness or edema noted at site; dressing cdi to right knee and right foot; buttocks noted with slight redness; plan of care/ am meds explained; s/o Ezequiel at bedside with Yu and rubio for pt; will continue to monitor
--- NOTE | 2024-04-09 08:03 | NUR ---
awake sitting at the side of the bed; pt freq noted with oxygen off; st/pac on monitor; purewick intact; call light within reach; will continue to monitor
--- NOTE | 2024-04-09 08:20 | NUR ---
Dr Vang present at bedside to assess pt and discuss plan of care
--- NOTE | 2024-04-09 10:02 | NUR ---
pt resting in bed with eyes closed; st pac/pvc on monitor; purewick intact; o2 per nc at 4L, o2 sat 96%; call light within reach; will continue to monitor
--- NOTE | 2024-04-09 10:48 | NUR ---
Dr Vang called per technical proposal writer; informed Dilaudid was ineffective; orders received to give an aditional 1mg d/t need for ct scan
--- NOTE | 2024-04-09 11:58 | NUR ---
pt awake in bed; tolerated lunch well; pt requesting pain medication and shot "at the same time"; medicated with lortab; no anxiety noted at this time but will monitor; o2 per nc; purewick intact; call light within reach
--- NOTE | 2024-04-09 12:08 | NUR ---
DRESSING CHANGED TO RIGHT ELBOW, RIGHT FOOT AND RIGHT KNEE
--- NOTE | 2024-04-09 14:00 | NUR ---
resting with eyes closed; o2 per nc; sr on monitor; call light within reach; will continue to monitor
--- NOTE | 2024-04-09 16:06 | NUR ---
awake sitting at the side of the bed; po fluids provided; sr on monitor; purewick intact; o2 per nc; call light within reach; will continue to monitor
--- NOTE | 2024-04-09 18:03 | NUR ---
pt awake sitting at the side of the bed; no apparent distress noted; o2 per nc; iv intact; purewick intact; no urinary incont noted at this time; pt noted with hallucinations; pt states "tree are walking/dancing"; pt has called sign/ other in regards to "trees walking and dancing" who in turn called staff to confirm; bond underwriter request to place bipap; pt declined; call light within reach
--- NOTE | 2024-04-09 19:10 | NUR ---
sitting on side of bed then assisted into bed. confused. o2 cont per nc. clinical research monitor shows sinus rhythm pacs pvcs. lij tlc in place. pure wick cath in place draining clear yellow urine. fall precautions & bed alarm conts. requires total care for all needs.
--- NOTE | 2024-04-09 22:00 | NUR ---
awake. remains confused. unable to reorient. demanding a cigarette. pt stated "give me a cigarette now!"
--- NOTE | 2024-04-09 23:00 | NUR ---
pt @ foot of bed attempting to get out. o2 off. repositioned pt in bed. o2 reapplied. remains confused.
[2024-04-10] VITALS (21 sets, daily range): BP systolic 90–177; BP diastolic 57–101
--- NOTE | 2024-04-10 00:01 | NUR ---
remains confused. cont to demand cigarettes. gambling monitor shows sinus rhythm pacs pvcs.
--- NOTE | 2024-04-10 02:00 | NUR ---
eyes closed. no distress. o2 cont.
--- NOTE | 2024-04-10 04:00 | NUR ---
eyes closed. no apparent distress. o2 cont.
[2024-04-10 05:32] LABS: HEMATOCRIT 45.6 % (37.0-47.0); HEMOGLOBIN 13.1 g/dl (12.0-16.0); MEAN CELL VOLUME 105.1 fL CALC (80.0-100.0); MEAN CORPUSCULAR HGB 30.2 pG CALC (26.0-32.0); MEAN CORPUSCULAR HGB CONC 28.7 g/dL CAL (32.0-36.0); RED BLOOD COUNT 4.34 mill/uL (4.20-5.60); RED CELL DISTRI WIDTH 14.1 % (11.5-15.5)
[2024-04-10 05:52] LABS: ALBUMIN 3.7 g/dL (3.2-5.0); BILIRUBIN, TOTAL 0.4 mg/dL (0.02-1.3); CREATININE 0.5 mg/dL (0.5-1.0); MAGNESIUM 1.7 mg/dL (1.6-2.3); POTASSIUM 4.1 mmol/l (3.5-5.1)
--- NOTE | 2024-04-10 06:15 | NUR ---
pulse ox 68%. rt notified. neb tx per rt. pulse ox increased to 94%.
[2024-04-10] MEDS ORDERED: METOPROLOL TARTRATE 5 MG/5 ML VIAL IV PRN (08:00)
--- NOTE | 2024-04-10 08:00 | NUR ---
REPORT RECEIVED FROM NIGHT NURSE. PATIENT IS ASLEEP ON BIPAP 35%, NOT EASILY AROUSABLE. S1S2 HEARD, SINUS ON TELE, HR IRREGULAR. RHONCHI HEARD IN ALL LUNG CAMILO. ABDOMEN SOFT, DISTENDED, BOWEL SOUNDS ACTIVE. ALL PULSES STRONG. DR CASTILLO AT BEDSIDE. PER MD NORMAL SALINE BOLUS STARTED DUE TO ELEVATED HR AND SOFT BP, AND WILL HOLD LASIX. CENTRAL LINE DRESSING CHANGE COMPLETED. SKIN WDI, NO EDEMA NOTED. DRESSING ON RIGHT KNEE CDI. CALL LIGHT IN REACH. VSS.
[2024-04-10] MEDS ORDERED: SODIUM CHLORIDE 0.9% 1,000 ML IV SCH (08:30)
--- NOTE | 2024-04-10 08:51 | NUR ---
ATTEMPTED TO TAKE OFF BIPAP, PLACE ON 4L O2, AND WAKE PATIENT TO TAKE MORNING PO MEDS. PATIENT WAS DROWSY. PLACED BACK ON BIPAP DUE TO BEING UNABLE TO STAY AWAKE.
[2024-04-10] MEDS ORDERED: PIPERACILLIN Sodium-Tazobactam 4.5 GM in SODIUM CHLORIDE 0.9% 100 ML IV SCH (09:00)
--- NOTE | 2024-04-10 10:15 | NUR ---
PATIENT WOKE UP AND RIPPED OFF BIPAP. PLACED ON 4L O2 BUT PATIENT ATTEMPTED TO TAKE IT OFF WELL. PATIENT GETTING COMBATIVE WITH STAFF. PATIENT ORIENTED TO SELF AND TIME ONLY. WHEN ASKED WHERE SHE WAS PATIENT STATES SHE WAS "IN A BASEMENT." REORIENTED TO PLACE BUT PATIENT NOT COMPREHENDING LOCATION. PATIENT IS YELLING OUT FOR PEOPLE TO HELP HER. PATIENT IS ALSO CALLING FOR HER DOG. DUE TO COMBATIVE BEHAVIOR AND ATTEMPTS TO REMOVE OXYGEN, PATIENT WAS PLACED IN BILATERAL SOFT WRIST RESTRAINTS. DR. CASTILLO NOTIFIED. ORDER RECEIVED FOR ABG, ZYPREXA, AND RESTRAINTS.
--- NOTE | 2024-04-10 10:55 | NUR ---
PATIENT GIVEN IM ZYPREXA PER OCT. AND GIVEN IV LOPRESSOR FOR HR OVER 110. PATIENT IS NOW CALM AND SLEEPING ON 4L O2. VITAL SIGNS STABLE AT THIS TIME.
--- NOTE | 2024-04-10 12:00 | NUR ---
PATIENT LAYING IN BED SLEEPING. HR HAS BEEN BETWEEN 80-130 WITH FREQUENT PAC'S. O2 MAINTAINED AT 94% AT 4L. RESTRAINTS REMOVED AT THIS TIME. CALL LIGHT IN REACH. VSS.
--- NOTE | 2024-04-10 14:00 | NUR ---
PATIENT LAYING IN BED SLEEPING. PATIENT O2 SAT DROPPED TO 84% ON 4L O2 NC. RT NOTIFIED. O2 INCREASED TO 15L. O2 SAT NOW 94%. CALL LIGHT IN REACH. VITAL SIGNS STABLE AT THIS TIME.
--- NOTE | 2024-04-10 16:00 | NUR ---
PATIENT LAYING DOWN IN BED SLEEPING. ON 8L O2 NC. ALL NEEDS MET. CALL LIGHT IN REACH. VSS.
--- NOTE | 2024-04-10 18:00 | NUR ---
PATIENT LAYING IN BED SLEEPING. ON 8L O2 NC. DRESSING CHANGE TO TOE COMPLETE. ALL NEEDS MET. CALL LIGHT IN REACH. VSS.
--- NOTE | 2024-04-10 19:10 | NUR ---
PATIENT RESTING IN BED. ECTOPY PVC/PAC ON THE MONITOR AND NON-SUSTAINED SINUS TACHYCARDIA (110s-130s). PER DAYSHIFT RN IS AWARE AND METOPROLOL PRN WAS ADMINISTERED AT 1849. PATIENT IS CURRENTLY CALM AND RESTING IN BED.
--- NOTE | 2024-04-10 21:15 | NUR ---
PATIENT RESTING IN BED IN NO APPARENT DISTRESS AND WITHOUT COMPLAINTS. PATIENT AWAKES TO VOICE AND VERBALLY CONSENTED WITH "OK" WHEN ASKED IF RN COULD CHECK HER BLOOD GLUCOSE AND ALSO EXTENDED HER HAND FOR ACCU-CHECK STICK AND FOR RN TO SCAN HER WRISTBAND. PATIENT IS TOO DROWSY TO TAKE PO MEDICATIONS SHE WAKES BRIEFLY AND RESPONDS APPROPIATELY VERBALLY BUT WILL THEN DOZE OFF AGAIN.
--- NOTE | 2024-04-10 23:45 | NUR ---
PATIENT AWAKE AND CALLING OUT FOR HELP. PATIENT IS DEMANDING PAIN MEDICATION. PATIENT IS ALERT AND ORIENTED TO PERSON, PLACE AND TIME. PATIENT ATE THIERRY CRACKERS AND DRANK A GLASS OF MILK WITH HER MEDICATION.
[2024-04-11] VITALS (23 sets, daily range): BP systolic 80–187; BP diastolic 45–104
--- NOTE | 2024-04-11 02:00 | NUR ---
PATIENT CALLING OUT REPEATEDLY SAYING THAT SHE WANTS TO GO HOME. PATIENT CALLED SIGNIFICANT OTHER ONOFRE 4 SEPARATE TIMES. ONOFRE CALLED NURSE AND WAS GIVEN AN UPDATE. PATIENT IS ALERT AND ORIENTED TO PERSON, PLACE, TIME.
--- NOTE | 2024-04-11 04:00 | NUR ---
PATIENT RESTING IN BED. CALL LIGHT WITHIN REACH.
--- NOTE | 2024-04-11 06:00 | NUR ---
PATIENT REMAINS ON BIPAP. CALL LIGHT AND PERSONAL ITEMS WITHIN REACH.
[2024-04-11 06:29] LABS: HEMATOCRIT 42.8 % (37.0-47.0); HEMOGLOBIN 12.4 g/dl (12.0-16.0); MEAN CELL VOLUME 104.1 fL CALC (80.0-100.0); MEAN CORPUSCULAR HGB 30.2 pG CALC (26.0-32.0); RED BLOOD COUNT 4.11 mill/uL (4.20-5.60)
[2024-04-11 06:54] LABS: CREATININE 0.4 mg/dL (0.5-1.0); MAGNESIUM 1.6 mg/dL (1.6-2.3); POTASSIUM 4.1 mmol/l (3.5-5.1); TOTAL PROTEIN 5.1 g/dL (6.3-8.2)
--- NOTE | 2024-04-11 07:30 | NUR ---
PT HAD INCONTINENT VOID. LINENS CHANGED AND PT REPOSITIONED IN BED. PURWIK IN PLACE. PT SITTING UP TO EAT BREAKFAST.
--- NOTE | 2024-04-11 08:00 | NUR ---
REPORT RECEIVED FROM NIGHT NURSE. PATIENT AXO X2, ORIENTED TO PERSON AND TIME. PATIENT BELIEVES SHE IS AT NURSE'S HOUSE. REORIENTED TO PLACE, PATIENT VERBALIZES UNDERSTANDING OF LOCATION. S1S2 NOTED, SINUS ON TELE, HR IRREGULAR. LUNG SOUNDS COARSE THROUGHOUT. BREATHING NON-LABORED. ON 5L O2 NC. ABDOMEN DISTENDED, NON-TENDER, WITH ACTIVE BOWEL SOUNDS. PULSES STRONG IN ALL EXTREMITIES. SKIN WARM AND DRY. DRESSINGS ON KNEE AND TOE CDI. CALL LIGHT IN REACH. VSS.
[2024-04-11 08:19] LABS: BILIRUBIN, TOTAL 0.7 mg/dL (0.02-1.3)
--- NOTE | 2024-04-11 10:00 | NUR ---
PATIENT LAYING DOWN IN BED WITH EYES CLOSED. ON 5L O2 NC. ALL NEEDS MET. VSS.
--- NOTE | 2024-04-11 12:00 | NUR ---
PATIENT SITTING UP AT EDGE OF BED EATING. DENIES NEEDS AT THIS TIME. ON 5L O2. CALL LIGHT IN REACH. VSS.
--- NOTE | 2024-04-11 14:00 | NUR ---
PATIENT LAYING DOWN IN BED TALKING ON THE PHONE. ON 5L O2 NC. ALL NEEDS MET. CALL LIGHT IN REACH. VSS.
--- NOTE | 2024-04-11 16:00 | NUR ---
PATIENT SITTING UP IN BED EATING A MEAL BROUGHT BY HER BOYFRIEND. ON 5L O2 NC. DENIES NEEDS AT THIS TIME. CALL LIGHT IN REACH. VSS.
--- NOTE | 2024-04-11 18:00 | NUR ---
PATIENT ASLEEP ON BIPAP AT 35%. ALL NEEDS MET. CALL LIGHT IN REACH. VSS.
--- NOTE | 2024-04-11 21:00 | NUR ---
PATIENT ON BIPAP UNABLE TO ADMINISTER PO MEDICATIONS.
--- NOTE | 2024-04-11 21:52 | NUR ---
PER DR. CASTILLO MAY ADMINISTER 2MG IV ATIVAN SOONER THAN Q6H X1 DOSE. PATIENT IS ON BIPAP AND REQUESTING MEDICATION FOR ANXIETY.
--- NOTE | 2024-04-11 23:00 | NUR ---
PATIENT TOOK BIPAP MASK OFF, RESPIRATORY THERAPIST AT BEDSIDE AND PLACED PATIENT ON NC. PATIENT HAS REPEATEDLY TAKEN HER PULSE OXIMETER PROBE OFF DESPITE BEING EDUCATED EACH TIME ABOUT THE IMPORTANCE OF MONITORING HER SPO2. PULSE OXIMETER PROBE REPLACED WITH A NEW ONE EACH TIME AFTER PATIENT REMOVED PREVIOUS ONE.
[2024-04-12] VITALS (20 sets, daily range): BP systolic 88–138; BP diastolic 50–90
--- NOTE | 2024-04-12 | NUR ---
PATIENT REPOSITIONED HERSELF TO SIT ON THE SIDE OF THE BED. PATIENT IS CONTINUALLY YELLING OUT AND/OR HITTING HER CALL LIGHT EVERY FEW MINUTES ASKING TO BE "TAKEN DOWNSTAIRS TO TAKE A SHOWER AND HOSE HERSELF OFF". PATIENT IS ORIENTED TO PERSON, PLACE AND TIME. PATIENT REQUESTED "THE DOCTOR BE CALLED SO SHE CAN HAVE A MORPHINE DRIP, IV DILAUDID AND COFFEE". PATIENT'S ANXIETY DECREASES AFTER BEING REORIENTED, REDIRECTED AND REASSURED THAT SHE IS SAFE HERE IN THE HOSPITAL. PATIENT ALSO STATED "I WANT TO GO ON HOSPICE WHEN I AM DYING MORE, SO I CAN GET BETTER PAIN MEDS". BED LOCKED IN LOWEST POSITION. CALL LIGHT AND PERSONAL BELONGINGS WITHIN REACH. PATIENT ALSO PROVIDED WITH A SNACK AND SODA.
--- NOTE | 2024-04-12 01:50 | NUR ---
PATIENT ASSISTED FROM SITTING ON SIDE OF BED BACK TO LAYING DOWN. LINENS CHANGED. AT 0100 PATIENT WAS VERY ANXIOUS AND REQUESTED PAIN AND ANXIETY MEDICATIONS BE ADMINISTERED, SEE EMAR FOR DOCUMENTATION. AT THIS TIME PATIENT IS MORE CALM AND STATED SHE WANTED TO TRY TO SLEEP AT THIS TIME. PATIENT REMAINS ON 4L NC. PICTURE TAKEN OF RASH ON BUTTOCKS AND PLACED ON CHART.
--- NOTE | 2024-04-12 03:35 | NUR ---
PATIENT COMPLAINING OF MUSCLE CRAMPS IN THIGH AND GROIN AREA. PATIENT REQUESTED MUSCLE RELAXER, SEE EMAR FOR DOCUMENTATION.
--- NOTE | 2024-04-12 04:53 | NUR ---
MORNING LABS DRAWN OFF LINE WITHOUT INCIDENT. JUST PRIOR TO ENTERING THE PATIENT'S ROOM THE PATIENT WAS CALLING OUT FOR HELP. PATIENT STATED THAT SHE IS STILL HAVING PAIN AND WANTS STRONGER PAIN MEDICATION. PATIENT REPORTS PAIN IN HER BACK/BILATERAL THIGH/LOWER EXTREMITIES. EXPLAINED TO PATIENT THAT IT IS TOO SOON FOR ANOTHER DOSE OF PAIN MEDS. ASSISTED PATIENT TO REPOSITION AND PATIENT STATED SHE WILL TRY TO GET SOME REST.
[2024-04-12 05:08] LABS: HEMATOCRIT 38.8 % (37.0-47.0); HEMOGLOBIN 11.6 g/dl (12.0-16.0); MEAN CELL VOLUME 103.7 fL CALC (80.0-100.0); MEAN CORPUSCULAR HGB CONC 29.9 g/dL CAL (32.0-36.0); RED BLOOD COUNT 3.74 mill/uL (4.20-5.60)
[2024-04-12 05:30] LABS: ALBUMIN 3.2 g/dL (3.2-5.0); BILIRUBIN, TOTAL 0.5 mg/dL (0.02-1.3); CREATININE 0.6 mg/dL (0.5-1.0); MAGNESIUM 1.6 mg/dL (1.6-2.3); POTASSIUM 3.9 mmol/l (3.5-5.1); TOTAL PROTEIN 5.4 g/dL (6.3-8.2)
--- NOTE | 2024-04-12 07:40 | NUR ---
RT AT BEDSIDE TO GIVE PT'S SCHEDULED BREATHING TREATMENT. PT'S SIGNIFICANT OTHER, ONOFRE, AT BEDSIDE TO VISIT WITH PT.
--- NOTE | 2024-04-12 08:00 | NUR ---
REPORT RECEIVED FROM NIGHT NURSE. PATIENT AXO X3. S1S2 NOTED, SINUS ON TELE WITH FREQUENT PAC'S. UPPER LUNG CAMILO CLEAR, LOWER DIMINISHED. NO SOB OR COUGH NOTED. ABDOMEN DISTENDED, NON-TENDER, WITH ACTIVE BOWEL SOUNDS. PULSES STRONG IN ALL EXTREMITIES. SKIN WARM AND DRY. DRESSINGS ON RIGHT ELBOW, RIGHT KNEE, AND RIGHT LITTLE TOE CDI. ON 4L O2 NC. CALL LIGHT IN REACH. VSS.
[2024-04-12] MEDS ORDERED: predniSONE 10 MG/TAB PO SCH (09:00)
--- NOTE | 2024-04-12 09:40 | NUR ---
PT AGREEABLE TO GO BACK ON BIPAP. RT AWARE. PT RESTING COMFORTABLY ON SAME BIPAP SETTINGS.
--- NOTE | 2024-04-12 10:00 | NUR ---
PATIENT ASLEEP ON BIPAP AT 35%. ALL NEEDS MET. CALL LIGHT IN REACH. VSS.
--- NOTE | 2024-04-12 12:00 | NUR ---
PATIENT LAYING DOWN IN BED ON BIPAP AT 35%. ALL NEEDS MET. CALL LIGHT IN REACH. VSS.
[2024-04-12] MEDS ORDERED: HYDROcodone 5 MG/Acetaminophen 325 MG/COMBO PO PRN (13:55)
--- NOTE | 2024-04-12 14:00 | NUR ---
PATIENT LAYING DOWN IN BED ASLEEP ON BIPAP 35%. ALL NEEDS MET. CALL LIGHT IN REACH. VSS.
--- NOTE | 2024-04-12 16:00 | NUR ---
PATIENT ASLEEP ON BIPAP 35%. ALL NEEDS MET. CALL LIGHT IN REACH. VSS.
--- NOTE | 2024-04-12 17:22 | NUR ---
PT TAKEN OFF BEDPAN AFTER HAVING BM. PT CLEANED AND REPOSITIONED. PT NOW SITTING AT EDGE OF BED TO EAT DINNER. PT'S ANXIETY APPEARS TO HAVE LESSENED AND PT IS CALM AND COOPERATIVE AT THIS TIME. CALL LIGHT AND BELONGINGS WITHIN REACH. VSS.
--- NOTE | 2024-04-12 18:00 | NUR ---
PATIENT SITTING UP IN BED EATING. ON 4L O2 NC. ALL NEEDS MET. CALL LIGHT IN REACH. VSS.
--- NOTE | 2024-04-12 19:20 | NUR ---
awake. sitting on side of bed. no resp diff. o2 cont per nc. telemetry monitor shows sinus rhythm pacs pvcs. lij tlc in place. po fluids taken well. pure wick in place. spoke to pt @ length about bipap @ night. pt verbalized understanding. fall precautions cont.
--- NOTE | 2024-04-12 21:00 | NUR ---
alicia here & brought food for pt.
--- NOTE | 2024-04-12 23:30 | NUR ---
eyes closed. bipap on.
[2024-04-13] VITALS (20 sets, daily range): BP systolic 107–173; BP diastolic 58–123
--- NOTE | 2024-04-13 02:00 | NUR ---
resting quietly. bipap cont. cardiac monotor shows sinus rhythm pacs pvcs.
--- NOTE | 2024-04-13 04:00 | NUR ---
eyes closed. bipap conts.
--- NOTE | 2024-04-13 05:53 | NUR ---
pt removed bipap. nc applied. sitting on side of bed. medicated for pain as requested. snack given.
--- NOTE | 2024-04-13 07:00 | NUR ---
REPORT RECEIVED FROM OFF GOING NURSE. DR. LARIOS IN TO SEE PATIENT.
--- NOTE | 2024-04-13 08:00 | NUR ---
PATIENT NOTED SITTING ON SIDE OF BED. ASSESSMENT COMPLETED (SEE INTERVENTIONS). PATIENT IS A/OX3 WITH FORGETFULNESS. SHE IS SOB WITH MIN EXERTION. VSS AT THIS TIME. NO ACUTE DISTRESS NOTED.
--- NOTE | 2024-04-13 08:50 | NUR ---
PATIENT ASKED TO BE PLACED BACK ON BIPAP. NO ACUTE DISTRESS NOTED.
--- NOTE | 2024-04-13 11:43 | NUR ---
BIPAP REMOVED SO PATIENT CAN HAVE LUNCH.
--- NOTE | 2024-04-13 12:00 | NUR ---
PATIENT SLEEPING WITH BIPAP ON AT THIS TIME WITH NO ACUTE DISTRESS NOTED.
--- NOTE | 2024-04-13 14:00 | NUR ---
PATIENT SITTING ON SIDE OF BED WITH NO ACUTE DISTRESS NOTED AT THIS TIME.
--- NOTE | 2024-04-13 18:00 | NUR ---
PATIENT HAD LARGE LOOSE INCONTINENT BOWEL MOVEMENT. COMPLETE BED BATH AND LINEN CHANGE COMPLETED AT THIS TIMNE. NO ACUTE DISTRESS NOTED. BED LOCKED, IN LOW POSITION, CALL LIGHT WITHIN REACH.
--- NOTE | 2024-04-13 19:30 | NUR ---
awake. eating kit bonilla candy bar. o2 cont per nc. cardiac monitor technician shows sinus rhythm pacs pvcs. lij tlc in place. po fluids taken well. pure wick cath in place. urine clear yellow. fall precautions cont.
--- NOTE | 2024-04-13 22:00 | NUR ---
eyes closed @ present. assistant portfolio manager shows sinus rhythm pacs pvcs
[2024-04-14] VITALS (27 sets, daily range): BP systolic 106–187; BP diastolic 61–115
--- NOTE | 2024-04-14 00:10 | NUR ---
eyes closed. bipap cont.
--- NOTE | 2024-04-14 01:45 | NUR ---
awakened then immediately requested ativan. instructed pt med was d/c'd. pt requested physician be called. request denied. flexeril given.
--- NOTE | 2024-04-14 03:15 | NUR ---
pt removed bipap. request pt to wear til 0500 when pain med was due. pt complied.
--- NOTE | 2024-04-14 05:40 | NUR ---
bipap off, nc on. blood drawn & sent to lab
[2024-04-14 06:10] LABS: HEMATOCRIT 41.9 % (37.0-47.0); HEMOGLOBIN 12.1 g/dl (12.0-16.0); MEAN CORPUSCULAR HGB CONC 28.9 g/dL CAL (32.0-36.0); RED BLOOD COUNT 4.03 mill/uL (4.20-5.60); RED CELL DISTRI WIDTH 13.7 % (11.5-15.5)
[2024-04-14 06:19] LABS: ALBUMIN 3.5 g/dL (3.2-5.0); BILIRUBIN, TOTAL 0.3 mg/dL (0.02-1.3); CREATININE 0.4 mg/dL (0.5-1.0); MAGNESIUM 1.7 mg/dL (1.6-2.3); TOTAL PROTEIN 5.7 g/dL (6.3-8.2)
--- NOTE | 2024-04-14 07:25 | NUR ---
pt awake sitting at the side of the bed; no apparent distress noted; assessment completed at this time; pt alert and oriented; admits to pain, prev medicated per HS nurse; no n/v noted; resp even and unlabored; lungs clear/ diminished bases; skin color wnl; o2 per nc at 4L; supervisor engines road cough noted; hr reg; pulses present; no edema noted; sr pac/pvc on monitor; abd soft with bs present; no bm noted per flex o writer operator; purewick intact with clear yellow urine; brief in place; TLC flushed and patent to [facility]; brisk blood return from all lumens; dressing cdi to right toe and right knee; plan of care/ am meds explained; call light within reach; will continue to monitor
--- NOTE | 2024-04-14 08:10 | NUR ---
sitting at the side of the bed eating breakfast; no apparent distress noted; o2 per nc; call light within reach; will continue to monitor
--- NOTE | 2024-04-14 09:20 | NUR ---
Dr Rodriguez present at bedside to assess pt and discuss plan of care
[2024-04-14] MEDS ORDERED: oxyCODONE 10MG/APAP 325 MG 1 COMBO TAB PO PRN (09:35)
[2024-04-14] MEDS ORDERED: LORazepam 2 MG/ML IV PRN (09:35)
--- NOTE | 2024-04-14 09:50 | NUR ---
OT present at bedside
--- NOTE | 2024-04-14 10:10 | NUR ---
resting in bed with eyes closed; sr pac/pvc on monitor; o2 per nc; call light within reach; will continue to monitor
[2024-04-14] MEDS ORDERED: BOUDREAUX'S BUTT PASTE ZINC OXIDE 57 G PASTE EX PRN (11:20)
--- NOTE | 2024-04-14 12:05 | NUR ---
pt awake sitting at the side of the bed; no apparent distress noted; iv intact; o2 per nc; call light within reach; will continue to monitor
--- NOTE | 2024-04-14 14:00 | NUR ---
resting in bed with eyes closed; bipap intact and maintained; purewick intact; sr pac/pvc on monitor; call light within reach; will continue to monitor
--- NOTE | 2024-04-14 16:00 | NUR ---
awake; sr/pvc on monitor; iv intact; o2 per nc; call light within reach; will continue to monitor
--- NOTE | 2024-04-14 17:53 | NUR ---
pt awake sitting at the side of the bed; no apparent distress noted; Ezequiel at bedside with additional outside dinner; sr on monitor; purewick intact; call light within reach
--- NOTE | 2024-04-14 19:48 | NUR ---
PT ASSESSMENT COMPLETE. PT LUNGS COARSE, CRACKLES. PT REQUESTED TO GO BACK ON BIPAP, RT PLACED @ 35%. 02 SAT IS 94%. PT HAS NO COMPLAINTS. CALL LIGHT IN REACH
[2024-04-14] MEDS ORDERED: FLUTICASONE/SALMETEROL 250 MCG/50 MCG PER DOSE INH IN SCH (21:00)
--- NOTE | 2024-04-14 22:00 | NUR ---
PT SPIT MEDS OUT. DEMANDED TO BE LEFT ALONE. WANTS TO STAY ON BIPAP. V/S STABLE, CALL LIGHT IN REACH
[2024-04-15] VITALS (23 sets, daily range): BP systolic 109–171; BP diastolic 48–108
--- NOTE | 2024-04-15 02:29 | NUR ---
PT RESTLESS, IN DISTRESS, NON COMPLIENT, TAKING BIPAP OFF, REFUSING O2, YELLING OUT FOR PILLS. GAVE KLONOPIN PER MD ORDER. V/S STABLE. CALL LIGHT IN REACH
--- NOTE | 2024-04-15 04:00 | NUR ---
PT ON BIPAP, CALM AT THE MOMENT. O2 SAT IS 96%. BIPAP IS 35% O2 SETTNG. V/S STABLE
[2024-04-15 05:39] LABS: BASO% 0.8 % (0-3); EOS% 1.9 % (0-8); HEMATOCRIT 38.1 % (37.0-47.0); HEMOGLOBIN 10.9 g/dl (12.0-16.0); IMMATURE GRANULOCYTES 1.3 % (0.0-5.0); LYMPH% 23.2 % (15-41); MEAN CELL VOLUME 105.5 fL CALC (80.0-100.0); MEAN CORPUSCULAR HGB 30.2 pG CALC (26.0-32.0); MEAN CORPUSCULAR HGB CONC 28.6 g/dL CAL (32.0-36.0); MONO% 15.5 % (2-13); NEUT# 4.72 thou/uL (2.00-7.15); NEUT% 57.3 % (42-76); RED BLOOD COUNT 3.61 mill/uL (4.20-5.60); RED CELL DISTRI WIDTH 13.9 % (11.5-15.5)
--- NOTE | 2024-04-15 06:08 | NUR ---
PT RESTING. PT ON BIPAP @ 35%, O2 SAT IS 96%. PT REFUSED CARE (LINENS CHANGED, CENTRAL LINE DRESSING CHANGE) . PT EDUCATED ON NEED TO CHANGE. V/S STABLE, CALL LIGHT IN REACH
[2024-04-15 06:09] LABS: ALBUMIN 3.2 g/dL (3.2-5.0); BILIRUBIN, TOTAL 0.2 mg/dL (0.02-1.3); CREATININE 0.6 mg/dL (0.5-1.0); MAGNESIUM 1.5 mg/dL (1.6-2.3); POTASSIUM 3.9 mmol/l (3.5-5.1); TOTAL PROTEIN 5.4 g/dL (6.3-8.2)
--- NOTE | 2024-04-15 06:33 | NUR ---
PT ALLOWED CENTRAL LINE DRESSING CHANGE. SITE INTACT, APPEARS HEALTHY. DATE, TIME, INITIALS ON DRESSING
--- NOTE | 2024-04-15 07:10 | NUR ---
pt resting in bed with eyes closed; no apparent distress noted; arousable to verbal stimuli; assessment completed at this time; pt alert to person; lethargic/confused; resp even and unlabored; lungs coarse with exp wheezing; skin color wnl; RT at bedside to convert to NC at 4L; equipment operat0r cough noted; hr reg; strong pulses; no edema noted; sr/pvc on monitor; abd soft with bs present; no bm noted per typewriter tester; purewick intact with clear yellow urine; no incont noted at this time; TLC to [facility] flushed and patent; no redness or edema noted at site; drsg to right toe and right knee; rash to left inner buttock; plan of care/ am meds explained; pt requesting "anxiety shot"; declined d/t pt being lethargic; call light wihtin reach; will continue to monitor
--- NOTE | 2024-04-15 07:25 | NUR ---
pt lethargic; unable to stay awake; o2 sat 77% on NC; bipap placed
--- NOTE | 2024-04-15 08:06 | NUR ---
resting in bed with eyes closed; bipap intact; sr on monitor; purewick intact; call light within reach; will continue to monitor
--- NOTE | 2024-04-15 09:14 | NUR ---
Dr Rodriguez present at bedside to assess pt and discuss plan of care
[2024-04-15] MEDS ORDERED: BUTALBITAL-APAP-CAFFEINE 50-325-40 TAB PO PRN (09:20)
--- NOTE | 2024-04-15 10:12 | NUR ---
pt awake sitting at the side of the bed; no apparent distress noted; o2 per nc; purewick intact; confusion noted; will continue to monitor
--- NOTE | 2024-04-15 12:11 | NUR ---
resting in bed with eyes closed; no apparent distress noted; sr pac/pvc on monitor; purewick intact; call light within reach; will continue to monitor
--- NOTE | 2024-04-15 14:20 | NUR ---
awake in bed; noted with tremors to upper extremities; medicated; Ezequiel present at bedside; o2 per nc; purewick intact; call light within reach; will continue to monitor
--- NOTE | 2024-04-15 16:00 | NUR ---
resting in bed; no apparent distress noted; sr/pvc on monitor; call light within reach; will continue to monitor
[2024-04-15] MEDS ORDERED: MAGNESIUM SULFATE HEPTAHYDRATE 50 ML IV ONE (17:25)
--- NOTE | 2024-04-15 18:32 | NUR ---
PATIENT HAD A SELF PARTIAL BED BATH. LINENS CHANGED. PUREWICK REPLACED. CENTRAL LINE DRESSING CHANGED WITHOUT INCIDENT. NO APPARENT DISTRESS NOTED. WILL CONTINUE TO MONITOR.
--- NOTE | 2024-04-15 20:00 | NUR ---
PATIENT SITTING ON THE SIDE OF THE BED. PROVIDED PATIENT WITH A SNACK AND DRINK. PATIENT STATES ALL OTHER NEEDS MET AT THIS TIME.
[2024-04-16] VITALS (14 sets, daily range): BP systolic 115–187; BP diastolic 53–122
--- NOTE | 2024-04-16 | NUR ---
NO CHANGE IN ASSESSMENT.
--- NOTE | 2024-04-16 04:00 | NUR ---
PATIENT IS SITTING ON THE SIDE OF THE BED. PATIENT HAS BEEN TAKING OFF OXYGEN AND PULSE OX PROBE. PATIENT IS REFUSING TO PUT OXYGEN BACK ON AT THIS TIME. AFTER SEVERAL MINUTES OF SPEAKING WITH THE PATIENT SHE WAS AGREEABLE TO PUTTING THE NC BACK ON HERSELF. PATIENT STATES ALL OTHER NEEDS MET AT THIS TIME.
--- NOTE | 2024-04-16 06:00 | NUR ---
PATIENT REMOVED OXYGEN AND PULSE OX PROBE. STAFF REDIRECTED AND RE-EDUCATED PATIENT ABOUT THE IMPORTANCE OF OXYGEN THERAPY AND MONITORING HER SPO2 SHE WAS AGREEABLE TO PUTTING THE NC BACK ON HERSELF AND WEARING THE PULSE OX PROBE.
[2024-04-16 06:10] LABS: EOS% 1.7 % (0-8); HEMATOCRIT 38.5 % (37.0-47.0); HEMOGLOBIN 11.1 g/dl (12.0-16.0); IMMATURE GRANULOCYTES 2.4 % (0.0-5.0); LYMPH% 23.5 % (15-41); MEAN CELL VOLUME 106.1 fL CALC (80.0-100.0); MEAN CORPUSCULAR HGB 30.6 pG CALC (26.0-32.0); MEAN CORPUSCULAR HGB CONC 28.8 g/dL CAL (32.0-36.0); MONO% 12.8 % (2-13); NEUT# 6.5 thou/uL (2.00-7.15); NEUT% 58.6 % (42-76); RED BLOOD COUNT 3.63 mill/uL (4.20-5.60); RED CELL DISTRI WIDTH 13.9 % (11.5-15.5)
[2024-04-16 06:16] LABS: ALBUMIN 3.7 g/dL (3.2-5.0); BILIRUBIN, TOTAL 0.2 mg/dL (0.02-1.3); CREATININE 0.6 mg/dL (0.5-1.0); MAGNESIUM 1.7 mg/dL (1.6-2.3); POTASSIUM 4.1 mmol/l (3.5-5.1)
--- NOTE | 2024-04-16 08:00 | NUR ---
CALL RECEIVED FROM [employer] AT [phone] IN REGARD TO PATIENT NEEDING TO CONTACT POLICE FOR THE " NURSE WITH TWINS" AND THE "NURSES ARE TAKING DRUGS" AND SHE "NEEDS TO STOP THEM". POLICE DEPARTMENT ADVISED THAT PATIENT IS CURRENTLY IN UNIT, SAFE AND SITTING ON THE SIDE OF THE BED FOR BREAKFAST. PATIENT REITERATED THE ABOVE WHEN ASKED ABOUT PHONE CALL. [employer] LAYUP LINE CORE LAYER NOTIFIED OF CALL. WILL CONTINUE TO MONITOR.
--- NOTE | 2024-04-16 08:06 | NUR ---
ARCHITECTURAL ENGINEERING TEACHER AT BEDSIDE TO FOLLOW UP WITH PATIENT'S CLAIMS OF DRUG THEFT.
[2024-04-16] MEDS ORDERED: METOPROLOL SUCCINATE 50 MG/TAB PO SCH (09:00)
--- NOTE | 2024-04-16 10:00 | NUR ---
PATIENT APPEARS TO BE RESTING WITH EYES CLOSED. NO APPARENT DISTRESS NOTED. WILL CONTINUE WITH PLAN OF CARE.
--- NOTE | 2024-04-16 11:39 | NUR ---
PATIENT CONTINUES TO REST WITH EYES CLOSED. CONTINUES TO REFUSE BIPAP. PATIENT ADVISED THAT OXY SAT IS LOW, CONTINUES TO REFUSED. NO OTHER CONCERNS AT THIS TIME. WILL CONTINUE TO MONITOR.
--- NOTE | 2024-04-16 11:46 | NUR ---
OXY SAT IN 67%, PATIENT AGREED TO USE BIPAP. BIPAP PLACED BY RT AT BEDSIDE.
--- NOTE | 2024-04-16 11:48 | NUR ---
FIO2 INCREASED TO 45%
[2024-04-16] MEDS ORDERED: LORazepam 2 MG/ML IV PRN (12:25)
--- NOTE | 2024-04-16 15:56 | NUR ---
PATIENT RESTING WITH EYES CLOSED. REFUSED ORAL MEDS AT THIS TIME. VITAL SIGNS STABLE. WILL CONTINUE WITH PLAN OF CARE.
--- NOTE | 2024-04-16 18:00 | NUR ---
PATIENT UP TO SIDE OF BED. ASSESSMENT UNCHANGED. WILL CONTINUE WITH PLAN OF CARE.
--- NOTE | 2024-04-16 20:15 | NUR ---
PATIENT SITTING UP ON SIDE OF BED. DISCUSSED PLAN OF CARE FOR THE EVENING AND MED SCHEDULE. PATIENT AGREEABLE TO ALL EVENING MEDS SCHEDULED AND PRN. PATIENT STATES ALL OTHER NEEDS MET AT THIS TIME.
--- NOTE | 2024-04-16 22:00 | NUR ---
NO CHANGE IN ASSESSMENT.
[2024-04-17] VITALS (12 sets, daily range): BP systolic 107–177; BP diastolic 55–102
--- NOTE | 2024-04-17 03:16 | NUR ---
PATIENT WOKE UP CRYING AND YELLING THAT SHE IS IN PAIN. BROUGHT PATIENT A PAIN PILL AND IV ANTIBIOTIC. PATIENT STATED "I CANNOT TAKE ANY PILLS AND YOU CAN'T EITHER". PATIENT IS ALERT AND ORIENTED TO PERSON, PLACE AND TIME. BROUGHT IN ANOTHER RN TO SPEAK WITH THE PATIENT WELL. THE PATIENT YELLED AT BOTH RN'S TO "SHUT UP AND LEAVE ME THE FUCK ALONE". "GET THE FUCK AWAY FROM ME AND OUT OF MY ROOM NOW". OFFERED PAIN PILL TO THE PATIENT MULTIPLE TIMES BUT SHE CONTINUED TO REFUSE. ASKED PATIENT HOW WE CAN BETTER HELP HER TO WHICH SHE RESPONDED "SHUT UP AND GO THE FUCK AWAY".
--- NOTE | 2024-04-17 03:23 | NUR ---
PATIENT REMOVED PULSE OX PROBE AND IS REFUSING ANY AND ALL NURSING CARE. PATIENT WISHES TO BE LEFT ALONE. PATIENT REMAINS ON HEART MONITOR BUT IS NOT ALLOWING STAFF TO REPLACE PULSE OX PROBE.
--- NOTE | 2024-04-17 04:15 | NUR ---
NOTIFIED DR. STEVENSON THAT THE PATIENT IS REFUSING NURSING CARE AND DOES NOT WANT STAFF IN HER ROOM. PATIENT IS SITTING ON THE SIDE OF THE BED. PATIENT REMAINS ON TELEMETRY AND BLOOD PRESSURE CUFF STILL CONNECTED BUT PULSE OX PROBE IS OFF DUE TO REFUSAL.
--- NOTE | 2024-04-17 07:34 | NUR ---
REPORT RECEIVED FROM NIGHT RN. PT REPORTEDLY PURPOSFULLY FELL OUT OF BED LAST NIGHT BUT DID NOT HIT HEAD. PT IS A/O TO PPT AND APOLAGETIC FOR HOW SHE ACTED LAST NIGHT. PT'S SIGNIFICANT OTHER AT BEDSIDE TO BRING HER BREAKFAST. LUNGS CLEAR/DIMINISHED. ON 4L NC. NO COUGH OR SOB NOTED AT THIS TIME. PT IS NSR ON MONITOR. BS ACTIVE; ABDOMEN DISTENDED/SOFT/NON-TENDER. PULSES STRONG UPPER, WEAK LOWER EXTREMETIES. NO EDEMA. PT CAN TURN SELF IN BED. SKIN W/D; DRESSING ON TOE C/D/I; ABRASION ON ELBOW SCABBED OVER. PT DENIES ANY NEEDS AT THIS TIME. CALL LIGHT AND BELONGINGS WITHIN REACH. VSS.
[2024-04-17 08:18] LABS: BASO% 0.9 % (0-3); EOS% 1.7 % (0-8); HEMATOCRIT 40.1 % (37.0-47.0); HEMOGLOBIN 11.1 g/dl (12.0-16.0); IMMATURE GRANULOCYTES 1.9 % (0.0-5.0); LYMPH% 19.7 % (15-41); MEAN CELL VOLUME 106.1 fL CALC (80.0-100.0); MEAN CORPUSCULAR HGB 29.4 pG CALC (26.0-32.0); MEAN CORPUSCULAR HGB CONC 27.7 g/dL CAL (32.0-36.0); MONO% 12.4 % (2-13); NEUT# 7.3 thou/uL (2.00-7.15); NEUT% 63.4 % (42-76); RED BLOOD COUNT 3.78 mill/uL (4.20-5.60); RED CELL DISTRI WIDTH 13.9 % (11.5-15.5)
[2024-04-17 08:27] LABS: ALBUMIN 3.4 g/dL (3.2-5.0); ALKALINE PHOSPHATASE 77 u/l (38-126); BILIRUBIN, TOTAL 0.2 mg/dL (0.02-1.3); BUN 19 mg/dL (8-23); BUN/CREATININE RATIO 43 (12-20 (CALC)); CHLORIDE 95 mmol/l (95-108); CREATININE 0.4 mg/dL (0.5-1.0); ESTIMATED GFR 110 ML/MIN (>=90 (CALC)); MAGNESIUM 1.6 mg/dL (1.6-2.3); POTASSIUM 4.2 mmol/l (3.5-5.1); SGOT/AST 25 u/l (9-36); SODIUM 140 mmol/l (137-146); TOTAL PROTEIN 5.8 g/dL (6.3-8.2)
[2024-04-17 08:53] LABS: CARBON DIOXIDE 51 mmol/l (22-30)
--- NOTE | 2024-04-17 09:35 | NUR ---
NO CHANGES TO PT STATUS. CALL LIGHT IN REACH. VSS. BED ALARM ON.
--- NOTE | 2024-04-17 11:54 | NUR ---
PT REPOSITIONED IN BED TO EAT LUNCH. PT HAVING VISUAL HALLUCINATIONS; ATTEMPTED TO RE-ORIENT PATIENT. PT CALM AND COOPERATIVE AT THIS TIME. CALL LIGHT IN REACH. VSS.
--- NOTE | 2024-04-17 13:01 | NUR ---
PT REPOSITIONED IN BED. AGREEABLE TO BIPAP BUT REPORTING ANXIETY. GIVEN PRN ATIVAN. AFTER THAT PT STATED SHE WAS NAUSEATED AND ASKING FOR ZOFRAN. DR. STEVENSON NOTIFIED.
--- NOTE | 2024-04-17 13:30 | NUR ---
RT AT BEDSIDE TO PLACE PT ON BIPAP. PT NO LONGER EXPERIENCING NAUSEA.
[2024-04-17] MEDS ORDERED: ONDANSETRON HCl 4 MG/2 ML SDV IV PRN (13:45)
--- NOTE | 2024-04-17 14:26 | NUR ---
PT WOKE UP AND TOOK OFF BIPAP. WANTS TO TAKE A BREAK FROM IT. RESTING IN BED ON 4LNC.
--- NOTE | 2024-04-17 16:15 | NUR ---
PT REQUESTED TO BE PLACED BACK ON BIPAP. PLACED ON BIPAP BY RT. PT NOW ASLEEP IN BED. VSS.
--- NOTE | 2024-04-17 18:00 | NUR ---
PT REPOSITIONED IN BED. SITTING UP TO EAT DINNER. PT REMAINS COMFUSED AND IS TEARFUL AT THIS TIME BECAUSE ONOFRE IS NOT HERE. CALL LIGHT IN REACH. VSS.
--- NOTE | 2024-04-17 19:00 | NUR ---
awake. c/o anxiety. o2 cont per nc. surveillance monitor shows sinus rhythm pacs pvcs. lij tlc in place. pure wick cath in place. urine clear yellow. fall precautions & bed alarm conts.
--- NOTE | 2024-04-17 22:00 | NUR ---
bipap on per rt.
[2024-04-18] VITALS (22 sets, daily range): BP systolic 99–157; BP diastolic 60–101
--- NOTE | 2024-04-18 00:01 | NUR ---
eyes closed. bipap conts. sap business objects consultant shows sinus rhythm pacs pvcs
--- NOTE | 2024-04-18 02:00 | NUR ---
eyes closed. no apparent distress. bipap cont.
--- NOTE | 2024-04-18 04:00 | NUR ---
resting quietly. resps even & unlabored. no apparent distress. bipap cont.
--- NOTE | 2024-04-18 05:40 | NUR ---
blood drawn & sent to lab.
[2024-04-18 06:10] LABS: BASO% 0.9 % (0-3); EOS% 2.1 % (0-8); HEMATOCRIT 37.3 % (37.0-47.0); HEMOGLOBIN 10.7 g/dl (12.0-16.0); IMMATURE GRANULOCYTES 1.4 % (0.0-5.0); LYMPH% 28.7 % (15-41); MEAN CELL VOLUME 104.2 fL CALC (80.0-100.0); MEAN CORPUSCULAR HGB 29.9 pG CALC (26.0-32.0); MEAN CORPUSCULAR HGB CONC 28.7 g/dL CAL (32.0-36.0); MONO% 11.7 % (2-13); NEUT# 4.67 thou/uL (2.00-7.15); NEUT% 55.2 % (42-76); RED BLOOD COUNT 3.58 mill/uL (4.20-5.60)
[2024-04-18 06:24] LABS: ALBUMIN 3.3 g/dL (3.2-5.0); ALKALINE PHOSPHATASE 76 u/l (38-126); BILIRUBIN, TOTAL 0.2 mg/dL (0.02-1.3); BUN 23 mg/dL (8-23); BUN/CREATININE RATIO 52 (12-20 (CALC)); CHLORIDE 95 mmol/l (95-108); CREATININE 0.4 mg/dL (0.5-1.0); ESTIMATED GFR 110 ML/MIN (>=90 (CALC)); MAGNESIUM 1.6 mg/dL (1.6-2.3); POTASSIUM 3.7 mmol/l (3.5-5.1); SGOT/AST 23 u/l (9-36); SODIUM 137 mmol/l (137-146); TOTAL PROTEIN 5.5 g/dL (6.3-8.2)
[2024-04-18 07:01] LABS: CARBON DIOXIDE 50 mmol/l (22-30)
--- NOTE | 2024-04-18 07:30 | NUR ---
Report received from shift commander nurse. Patient is sitting on side of bed, denies any pain. A&O to self, place. Unsure of time/ situation. On 3L NC and tolerating. Patient wore BIPAP most of the night per shift commander nurse. VS WNL, sinus tach on tele monitor, purwick in place. All needs addressed at this time, call light within reach.
--- NOTE | 2024-04-18 10:00 | NUR ---
Patient is sleeping, does not appear to be in any distress. On 3L NC and tolerating. VS WNL, NSR on tele monitor, purwick in place. All needs addressed, call light within reach, bed alarm on.
--- NOTE | 2024-04-18 12:00 | NUR ---
Patient is sitting in side of bed eating lunch. On 3L NC, BIPAP on standby. A&O to self and place, VS WNL, NSR on tele monitor. All needs addressed, call light within reach.
--- NOTE | 2024-04-18 14:00 | NUR ---
Patient is sleeping, does not appear to be in any distress. On 3L NC, BIPAP on standby. Purwick in place, VS WNL, NSR on tele monitor. All needs addressed, call light within reach.
--- NOTE | 2024-04-18 16:00 | NUR ---
Patient is sitting in bed, denies any pain. Patient thinks she is in a [facility] in [place]. Reoriented patient. Patient is on 3L NC, NSR on tele monitor, purwick in place, VS WNL. All needs addressed at this time, call light within reach.
--- NOTE | 2024-04-18 18:00 | NUR ---
Patient is sleeping, does not appear to be in any distress. On 3L NC, NSR on tele monitor, VS WNL, purwick in place. All needs addressed, call light within reach, bed alarm on.
--- NOTE | 2024-04-18 19:48 | NUR ---
PT ASSESSMENT COMPLETE. PT SITTING UP EATING. PT EDUCATED TO CALL FOR HELP, DO NOT GET UP BY HERSELF. LUNGS COARSE, RHONCHI UPPER LOBES, DIMINISHED BASES. 02 SAT IS 95% 4L NC. V/S STABLE. CALL LIGHT IN REACH, BED ALARM ACTIVATED
--- NOTE | 2024-04-18 22:00 | NUR ---
PT RESTING. ON 4L NC, O2 SAT IS 92%. V/S STABLE
[2024-04-19] VITALS (23 sets, daily range): BP systolic 90–158; BP diastolic 38–102
--- NOTE | 2024-04-19 | NUR ---
PT RESTLESS, TRYING TO TALK OVER BIPAP. O2 SAT IS 97%. KONOPIN WAS GIVEN PER ORDERS.
--- NOTE | 2024-04-19 01:56 | NUR ---
PT REFUSING TO WEAR BIPAP. PT PLACED ON NC @ 4L, PT CONTINUES TO TAKE IT OFF. O2 SAT IS 90%. RT NOTIFIED. PT COMPLAINS OF PAIN EVERYWHERE. PERCOCET GIVEN PER ORDERS
--- NOTE | 2024-04-19 04:00 | NUR ---
PT RESTLESS, REPEATEDLY HOLLERING OUT FOR DAUGHTER, NURSE, DOG, FOOD, DRINK, ETC. ATIVAN WAS GIVEN PER ORDERS. PT SOILED BRIEF W/ URINE, PT COMPLETE CHANGE. RASH ON SACRAL AREA NOTED, PROVIDER AWARE. V/S STABLE.
[2024-04-19 05:12] LABS: BASO% 1.1 % (0-3); EOS% 1.8 % (0-8); HEMATOCRIT 34.9 % (37.0-47.0); HEMOGLOBIN 10.1 g/dl (12.0-16.0); IMMATURE GRANULOCYTES 1.2 % (0.0-5.0); LYMPH% 29.2 % (15-41); MEAN CELL VOLUME 104.2 fL CALC (80.0-100.0); MEAN CORPUSCULAR HGB 30.1 pG CALC (26.0-32.0); MEAN CORPUSCULAR HGB CONC 28.9 g/dL CAL (32.0-36.0); MONO% 11.6 % (2-13); NEUT# 5.13 thou/uL (2.00-7.15); NEUT% 55.1 % (42-76); RED BLOOD COUNT 3.35 mill/uL (4.20-5.60); RED CELL DISTRI WIDTH 14.1 % (11.5-15.5)
[2024-04-19 05:47] LABS: ALBUMIN 2.9 g/dL (3.2-5.0); CREATININE 0.4 mg/dL (0.5-1.0); MAGNESIUM 1.5 mg/dL (1.6-2.3); POTASSIUM 3.8 mmol/l (3.5-5.1)
[2024-04-19 06:08] LABS: BILIRUBIN, TOTAL 0.1 mg/dL (0.02-1.3)
--- NOTE | 2024-04-19 06:21 | NUR ---
PT RESTING, HAS NO COMPLAINTS AT THIS TIME. PT ON 4L O2 NC, SAT IS 94%.
--- NOTE | 2024-04-19 07:15 | NUR ---
Report received from public works technician nurse. Patient is sleeping, was on 3L NC however oxygen saturation was only mid 80's. Placed patient on BIPAP at 35%. VS WNL, NSR on tele monitor, purwick in place. All needs addressed at this time, call light within reach.
--- NOTE | 2024-04-19 08:35 | NUR ---
FIO2 on BIPAP increased to 50%, patient was desaturating into the low 80's. Pulse ox probe changed. RT aware.
[2024-04-19] MEDS ORDERED: MAGNESIUM SULFATE HEPTAHYDRATE 50 ML IV ONE (09:30)
--- NOTE | 2024-04-19 10:00 | NUR ---
Patient is awake and sitting on the side of bed eating breakfast. A&Ox4, medicated for pain, on 3L NC, VS WNL, ST on tele monitor, purwick in place. All needs addressed, call light within reach.
--- NOTE | 2024-04-19 10:30 | NUR ---
Changed central line dressing to L IJ. Skin under dressing is red.
--- NOTE | 2024-04-19 12:00 | NUR ---
Patient is sleeping, does not appear to be in any distress. On BIPAP at 50%, VS WNL, NSR on tele monitor, purwick in place. All needs addressed at this time, call light within reach.
--- NOTE | 2024-04-19 20:00 | NUR ---
pt assessed alox1-2, pt states. multiple tatements of unreality. " she wants to go see the babies born." and other statements that are non sensical.. all monitors on. call covington withn reach.
--- NOTE | 2024-04-19 22:00 | NUR ---
PT refusing BIpap. Bipap applied multiple times by RN and RT. pt refused many times after education. pt became beligerant stating profanities to RN and threatening to hurt RN. Pt remains on her normal nasal cannula of 4 L . with sats 98%, on reflector driller and deburrer. pt satup and ate dinner which included a hambuger and fried brought earlier by her partner. and she also ate the main course of her hospital meal including 2 muffins brought by her partner and soda. pt ate 100% of all food. pt cleaned for urine in breif. new purewick. new brief and pads. all needs met. call covington within reach. pt on monitor cardiac and pulse ox, bp.
[2024-04-20] VITALS (25 sets, daily range): BP systolic 107–162; BP diastolic 51–138
--- NOTE | 2024-04-20 | NUR ---
pt refusing bipap from RT. pt up and sitting at edge of bed driking soda. all need smet. assesssment unchanged
--- NOTE | 2024-04-20 02:00 | NUR ---
pt wanyted to go back to bed assisted in position in bed. pt given tylenol for pain . o2 on 4l nc. pt offerred bipapa for sleep and educated again on importancce of it. pt refusing bipap for sleep.
--- NOTE | 2024-04-20 03:56 | NUR ---
pt requested earlier to go on BIPAP arround 3 am , pt on bipap sleeping comfortably. pulse ox 93%, NSR, on cardiac and pulse ox monitor, call covington within reach . assessment unchanged. ass needs met.
--- NOTE | 2024-04-20 05:06 | NUR ---
labs drawn from left IJ tripple lumen , all 3 lumens assessed, hubs scrubbed with alcohol, all lumens flushed with 20cc NS , new green caps to all 3 lumens and all 3 lumens clamped with IJ blue clamps,
[2024-04-20 05:52] LABS: BASO% 0.6 % (0-3); EOS% 1.8 % (0-8); HEMOGLOBIN 10.2 g/dl (12.0-16.0); LYMPH% 26.9 % (15-41); MEAN CELL VOLUME 104.5 fL CALC (80.0-100.0); MEAN CORPUSCULAR HGB 30.4 pG CALC (26.0-32.0); MEAN CORPUSCULAR HGB CONC 29.1 g/dL CAL (32.0-36.0); MONO% 10.8 % (2-13); NEUT# 5.81 thou/uL (2.00-7.15); NEUT% 58.9 % (42-76); RED BLOOD COUNT 3.35 mill/uL (4.20-5.60); RED CELL DISTRI WIDTH 14.1 % (11.5-15.5)
--- NOTE | 2024-04-20 06:00 | NUR ---
pt sleeping on bipap. pt went on bipap arround 3 am sherif. pt turns self in bed currently sleeping on right side. call cell within reach. all safety measures in place. on quality assurance monitor pulse ox on . all needs met. pt awoken to get her a bath. pt refused.
[2024-04-20 06:08] LABS: BILIRUBIN, TOTAL 0.1 mg/dL (0.02-1.3); CREATININE 0.5 mg/dL (0.5-1.0); MAGNESIUM 1.8 mg/dL (1.6-2.3); TOTAL PROTEIN 5.1 g/dL (6.3-8.2)
[2024-04-20 06:15] LABS: POTASSIUM 3.7 mmol/l (3.5-5.1)
--- NOTE | 2024-04-20 06:41 | NUR ---
pt took herself off bipap and stated she did not want it on . 4LNC appled . pt assisted back to laying down offered a bath again pt stated " no don't touch me, I just want to sleep". Pt slept very little this evening about 4 hours total, and was on bipap 3-4 hours all night. all neeeds met. call bellwithin reach pt on monitor all alarms on , bed alarm on .
--- NOTE | 2024-04-20 07:30 | NUR ---
Report received from scene shifter nurse. Patient is sleeping, on 4L NC and tolerating. Refused to wear the BIPAP overnight. Sinus tach on tele monitor, VS WNL, purwick in place. All needs addressed at this time, call light within reach.
--- NOTE | 2024-04-20 10:00 | NUR ---
Patient is resting in bed, on 4L NC. Patient was refusing AM meds but now she wants them. A&O to self only. VS WNL, ST on tele monitor, purwick in place. All needs addressed at this time, call light within reach.
--- NOTE | 2024-04-20 12:00 | NUR ---
Patient is sitting on side of bed eating lunch. Patient is only A&O to self, very confused about everything else that is going on. On 4L NC, VS WNL, NSR on tele monitor, purwick in place. All needs addressed, call light within reach.
--- NOTE | 2024-04-20 14:00 | NUR ---
Patient is sitting on side of bed, denies any pain at this time. A&O to self only. keeps wanting to go outside to smoke a cigarette. Educated patient that she is in the hospital and cannot smoke. Patient is on 4L NC, VS WNL, NSR on tele monitor, purwick in place. All needs addressed, call light within reach.
--- NOTE | 2024-04-20 16:00 | NUR ---
Patient is sitting on side of bed, denies any pain. Patient is only A&O to self, remains confused even after reorientation. On 4L NC, VS WNL, NSR on tele monitor, purwick in place. All needs addressed, call light within reach.
--- NOTE | 2024-04-20 18:00 | NUR ---
Patient is resting in bed, medicated for pain with PRN meds. A&O to self only, patient asked to be put on the BIPAP. BIPAP on, NSR on tele monitor, VS WNL, purwick in place. All needs addressed at this time, call light within reach.
--- NOTE | 2024-04-20 20:00 | NUR ---
pt assessed. pt laying in bed wanted to get up sit at side of bed and have a snack. pt given water and per hiet gingerale. call covington within reach. on moniitors.all safety measures in place. bed alarm on .
--- NOTE | 2024-04-20 22:00 | NUR ---
pt sitting at bedside. doing her arm band exercises on 4l nc. pt brushed her air and did some self care adls. assessment unchanged.
[2024-04-21] VITALS (23 sets, daily range): BP systolic 92–153; BP diastolic 48–107
--- NOTE | 2024-04-21 | NUR ---
assessment unchanged. pt in bed resting comfortbaly. all monitors and safety measures in place.
--- NOTE | 2024-04-21 02:00 | NUR ---
pt assessed resting comfortbaly on bipap.all safety measures in place.
--- NOTE | 2024-04-21 03:02 | NUR ---
assessment unchanged. pt resting comfortably on bipap.
--- NOTE | 2024-04-21 04:00 | NUR ---
pt assessed . resting comforbaly on bipap all needs met.
--- NOTE | 2024-04-21 05:20 | NUR ---
labs drawn , all lumens flushed and new green alcohol caps all lumens blue clip on for safety dressing clean dry and intact.
[2024-04-21 05:27] LABS: BASO% 1.2 % (0-3); EOS% 2.3 % (0-8); HEMOGLOBIN 9.3 g/dl (12.0-16.0); IMMATURE GRANULOCYTES 1.3 % (0.0-5.0); LYMPH% 33.5 % (15-41); MEAN CELL VOLUME 104.4 fL CALC (80.0-100.0); MEAN CORPUSCULAR HGB 29.4 pG CALC (26.0-32.0); MEAN CORPUSCULAR HGB CONC 28.2 g/dL CAL (32.0-36.0); MONO% 9.9 % (2-13); NEUT# 4.02 thou/uL (2.00-7.15); NEUT% 51.8 % (42-76); RED BLOOD COUNT 3.16 mill/uL (4.20-5.60); RED CELL DISTRI WIDTH 14.4 % (11.5-15.5)
[2024-04-21 05:39] LABS: ALBUMIN 2.9 g/dL (3.2-5.0); ALKALINE PHOSPHATASE 78 u/l (38-126); BILIRUBIN, TOTAL 0.1 mg/dL (0.02-1.3); BUN 26 mg/dL (8-23); BUN/CREATININE RATIO 54 (12-20 (CALC)); CHLORIDE 97 mmol/l (95-108); CREATININE 0.5 mg/dL (0.5-1.0); ESTIMATED GFR 105 ML/MIN (>=90 (CALC)); MAGNESIUM 1.6 mg/dL (1.6-2.3); POTASSIUM 3.6 mmol/l (3.5-5.1); SGOT/AST 24 u/l (9-36); SODIUM 137 mmol/l (137-146)
[2024-04-21 05:55] LABS: CARBON DIOXIDE 48 mmol/l (22-30)
--- NOTE | 2024-04-21 06:19 | NUR ---
pt awoken and was disorriented , pt has been ALOx1-2 all shift. pt ripped off bipapa and stated she had a bad dream. bipap put back on . pt back to sleep. all needs met. all monitors on and safety measures in place bed alarm.
[2024-04-21] MEDS ORDERED: MAGNESIUM SULFATE HEPTAHYDRATE 50 ML IV ONE (07:00)
--- NOTE | 2024-04-21 07:15 | NUR ---
Report received from shiftman nurse. Patient is sleeping, does not appear to be in any distress. On 4L NC, BIPAP on standby, VS WNL, MSR on tele monitor. All needs addressed at this time, call light within reach.
--- NOTE | 2024-04-21 08:00 | NUR ---
Patient sleeping on BIPAP.
[2024-04-21] MEDS ORDERED: POTASSIUM CHLORIDE 20 MEQ/TAB PO ONE (09:00)
--- NOTE | 2024-04-21 10:00 | NUR ---
Patient is awake, placed on 4L NC. Brief changed. Patient c/o generalized pain. Will give PRN meds. Patient is A&O to self only. VS WNL, NSR on tele monitor, purwick in place. Patient sitting on side of bed eating breakfast. All needs addressed, call light within reach.
[2024-04-21 11:59] LABS: HEMATOCRIT 38.2 % (37.0-47.0); HEMOGLOBIN 11.2 g/dl (12.0-16.0)
--- NOTE | 2024-04-21 12:00 | NUR ---
Patient is sitting on side of bed eating lunch. A&O to self only. Patient is emotional because she states that her kids hate her. Emotional support given. On 4L NC, VS WNL, NSR on tele monitor, andrei in place. All needs addressed at this time, call light within reach.
--- NOTE | 2024-04-21 14:00 | NUR ---
Patient is sitting on side of bed, denies any pain. A&O to self and place at this time, on 4L NC, VS WNL, NSR on tele monitor, purwick in place. All needs addressed at this time, call light within reach.
--- NOTE | 2024-04-21 18:00 | NUR ---
Patient is sitting on side of bed, denies any pain. A&O to self only, on 4L NC, VS WNL, NSR on tele monitor, purwick in place. All needs addressed, call light within reach.
--- NOTE | 2024-04-21 19:15 | NUR ---
awake. sitting on side of bed. no resp diff. o2 cont per nc. chief juvenile probation officer shows sinus rhythm pacs pvcs. lij tlc in place. po fluids taken well. pure wick cath in place. fall precautions & bed alarm conts.
--- NOTE | 2024-04-21 22:00 | NUR ---
meds given. rt notified of need for bipap.
[2024-04-22] VITALS (29 sets, daily range): BP systolic 86–192; BP diastolic 46–120
--- NOTE | 2024-04-22 00:10 | NUR ---
awake. medicated for pain as requested. bipap cont.
--- NOTE | 2024-04-22 02:00 | NUR ---
eyes closed. bipap cont. alarm security or surveillance monitor shows sinus rhythm pacs pvcs.
--- NOTE | 2024-04-22 03:25 | NUR ---
pt removed bipap. nc resumed.
--- NOTE | 2024-04-22 06:00 | NUR ---
blood drawn & sent to lab.
[2024-04-22 06:17] LABS: EOS% 2.9 % (0-8); HEMATOCRIT 35.7 % (37.0-47.0); HEMOGLOBIN 10.3 g/dl (12.0-16.0); IMMATURE GRANULOCYTES 1.6 % (0.0-5.0); LYMPH% 34.3 % (15-41); MEAN CELL VOLUME 104.1 fL CALC (80.0-100.0); MEAN CORPUSCULAR HGB CONC 28.9 g/dL CAL (32.0-36.0); MONO% 9.1 % (2-13); NEUT# 4.04 thou/uL (2.00-7.15); NEUT% 51.1 % (42-76); RED BLOOD COUNT 3.43 mill/uL (4.20-5.60); RED CELL DISTRI WIDTH 14.2 % (11.5-15.5)
[2024-04-22 06:22] LABS: ALBUMIN 3.3 g/dL (3.2-5.0); CREATININE 0.5 mg/dL (0.5-1.0); MAGNESIUM 1.7 mg/dL (1.6-2.3); POTASSIUM 4.1 mmol/l (3.5-5.1); TOTAL PROTEIN 5.6 g/dL (6.3-8.2)
[2024-04-22 06:31] LABS: BILIRUBIN, TOTAL 0.2 mg/dL (0.02-1.3)
--- NOTE | 2024-04-22 06:55 | NUR ---
REPORT RECEIVED FROM TRISHA PAULSON
--- NOTE | 2024-04-22 07:35 | NUR ---
RT AT BEDSIDE ADMINISTERING BREATHING TX.
--- NOTE | 2024-04-22 08:50 | NUR ---
PT RESTING AT BEDSIDE EATING BREAKFAST, A&O X3;VS OBTAINED AND ASSESSMENT COMPLETED;PT DENIES ANY CURRENT PAIN OR DISCOMFORTS,PAIN SCALE AND REPORTING EDUCATED;RESPIRATIONS SHALLOW ON O2 @ 4L VIA NC,COARSE/DIMINISHED LUNG SOUNDS;ABDOMEN DISTENDED/SOFT ON PALPATION AND ACTIVE IN ALL 4 QUADRANTS;PUREWICK CATHETER DRAINING CLEAR/YELLOW URINE TO GRAVITY WITH EASE;STRONG PEDAL PULSES;CARDIAC MONITORING IN PLACE;LIJ TL NOTED, FLUSHED AND PATENT;ACCUCHECK 114, NO COVERAGE NEEDED;FRESH WATER AND MEAL SET UP PROVIDED;ENCOURAGED TO CALL FOR ASSISTANCE IF NEEDED;FALL PRECAUTIONS IN PLACE WITH BED IN THE LOWEST POSITION AND CALL LIGHT IN REACH;FREQUENT ROUNDS MADE.
--- NOTE | 2024-04-22 08:55 | NUR ---
AT BEDSIDE DISCUSSING POC WITH PT
--- NOTE | 2024-04-22 11:35 | NUR ---
PT RESTING AT BEDSIDE EATING LUNCH;RESPIRATIONS REMAIN SHALLOW ON O2 @ 4L VIA NC;PT REPORTS GENERALIZED PAIN RATING 8/10 ON THE PAIN SCALE AND IS MEDICATED WITH PRN PERCOCET 10 PER REQUEST;GANESH TL PATENT;PUREWICK CATHETER IN PLACE DRAINING URINE TO GRAVITY WITH EASE;ACCUCHECK 136, NO COVERAGE NEEDED;PT ENCOURAGED TO CALL FOR ASSISTANCE IF NEEDED;CALL LIGHT IN REACH;FREQUENT ROUNDS MADE.
--- NOTE | 2024-04-22 13:08 | NUR ---
PT SITTING ON BEDSIDE WITH SPOUSE;RESPIRATIONS REMAIN SHALLOW ON O2 @ 4L VIA NC;CARDIAC MONITORING IN PLACE;PT DENIES ANY ADDITIONAL NEEDS;CALL LIGHT IN REACH;FREQUENT ROUNDS MADE.
--- NOTE | 2024-04-22 15:00 | NUR ---
PT RESTING AT BEDSIDE WATCHING TV;RESPIRATIONS REMAIN SHALLOW ON O2 @ 4L VIA NC;PT DENIES ANY CURRENT PAIN OR NEEDS;CARDIAC MONITORING IN PLACE;PUREWICK CATHETER CONTINUES TO DRAIN CLEAR/YELLOW URINE;LIJ TL PATENT;ICE PROVIDED PER REQUEST;PT ENCOURAGED TO CALL FOR ASSISTANCE IF NEEDED;FALL PRECAUTIONS REMAIN IN PLACE WITH CALL LIGHT IN REACH;FREQUENT ROUNDS MADE.
--- NOTE | 2024-04-22 17:00 | NUR ---
PT RESTING AT BEDSIDE EATING DINNER;RESPIRATIONS SHALLOW ON O2 @ 4L VIA NC;PT DENIES ANY CURRENT PAIN, RECENTLY MEDICATED WITH PRN KLONOPIN 1MG PO PER REQUEST;GANESH TL PATENT;PUREWICK CATHETER DRAINING WITH EASE AND 700CC OF CLEAR/YELLOW URINE EMPTIED;COMPLETE BED BATH PROVIDED WITH LINEN CHANGE;ACCUCHECK 202, PT COVERED WITH SLIDING SCALE INSULIN PER ORDER;PT DENIES ANY ADDITIONAL NEEDS AND IS ENCOURAGED TO CALL FOR ASSISTANCE IF NEEDED;CALL LIGHT IN REACH;FREQUENT ROUNDS MADE.
--- NOTE | 2024-04-22 20:00 | NUR ---
pt sitting at the edge of bed mo s/s of distress noted, shift assessment completd. pt reports of pain pt medicated pre emar. no other needs or concern voiced. call light in reahc and bed in lowset position.
--- NOTE | 2024-04-22 23:31 | NUR ---
pt cuurently on bipap, pt is requesting to take in off, pt educated on the importace to keep bipap, pt agrees no leave bipap on. call light in reach and bed in lowest position.
[2024-04-23] VITALS (25 sets, daily range): BP systolic 106–185; BP diastolic 48–158
--- NOTE | 2024-04-23 00:38 | NUR ---
PT REQUESTED TO TAKE BIPAP OFF, PT EDUCATED ON THE PURPOSE OF BIPAP, PT CONTINUE TO REFUSED. PT IS REQUESTING ANXIETY MEDICATION. PT MEDICATED ORDER PER OCT. CALL LIGHT IN REACH AND BED IN LOWSET POSITION.
--- NOTE | 2024-04-23 01:32 | NUR ---
PT RESTING IN BED, PT IS REQUESTING SOME SNACK, SNACKS PROVIDED REQUESTED, NO NEEDS OR CONCERNS VOICED CALL LIGHT IN REACH AND BED IN LOWSET POSTION.
--- NOTE | 2024-04-23 02:55 | NUR ---
pt in bed no s/s of distress noted, breathing is even and unlabored. call light in reach and bed in lowest position.
--- NOTE | 2024-04-23 04:18 | NUR ---
pt resting in bed with eyes closed, breathing is even and unlabored, no s/s of distress noted, morning labs draw for centra line and send to lab. call light in reach and bed in lowest position.
[2024-04-23 04:31] LABS: BASO% 0.8 % (0-3); EOS% 2.4 % (0-8); HEMATOCRIT 36.4 % (37.0-47.0); HEMOGLOBIN 10.4 g/dl (12.0-16.0); IMMATURE GRANULOCYTES 1.9 % (0.0-5.0); MEAN CORPUSCULAR HGB 29.7 pG CALC (26.0-32.0); MEAN CORPUSCULAR HGB CONC 28.6 g/dL CAL (32.0-36.0); NEUT# 4.64 thou/uL (2.00-7.15); NEUT% 50.9 % (42-76); RED BLOOD COUNT 3.5 mill/uL (4.20-5.60); RED CELL DISTRI WIDTH 13.9 % (11.5-15.5)
[2024-04-23 04:45] LABS: ALBUMIN 3.4 g/dL (3.2-5.0); BILIRUBIN, TOTAL 0.2 mg/dL (0.02-1.3); CREATININE 0.6 mg/dL (0.5-1.0); MAGNESIUM 1.6 mg/dL (1.6-2.3); TOTAL PROTEIN 5.7 g/dL (6.3-8.2)
--- NOTE | 2024-04-23 08:00 | NUR ---
PT IS SLEEPING IN BED WITH BIPAP ON. AROUSABLE TO SPEECH. TEMP OF 96.5. GLUCOSE OF 108
--- NOTE | 2024-04-23 10:00 | NUR ---
PT IS UP TO THE SIDE OF THE BED EATING BREAKFAST. ON NC 3L.
--- NOTE | 2024-04-23 12:05 | NUR ---
PT IS SITTING UP IN BED EATING LUNCH. TEMP IS 97.5.
--- NOTE | 2024-04-23 14:00 | NUR ---
PT IS SITTING UP IN BED. LINENS AND GOWN CHANGED, BED BATH AND MAI-CARE PREFORMED.
--- NOTE | 2024-04-23 16:08 | NUR ---
PT IS LAYING DOWN IN BED WATCHING TV.
--- NOTE | 2024-04-23 18:01 | NUR ---
PT IS SITTING ON SIDE OF BED, WATCHING TV.
--- NOTE | 2024-04-23 19:20 | NUR ---
sitting on side of bed. no resp doff. o2 cont per nc. radiation monitor shows sinus rhythm pacs pvcs. lij tlc in place. po fluids taken well. pure wick cath in place. urine clear yellow. fall precautions & bed alarm conts.
--- NOTE | 2024-04-23 21:30 | NUR ---
meds & snack given. rt notified of need for bipap.
[2024-04-24] VITALS (23 sets, daily range): BP systolic 92–163; BP diastolic 55–130
--- NOTE | 2024-04-24 00:01 | NUR ---
eyes closed. no distress.
--- NOTE | 2024-04-24 02:00 | NUR ---
resting quietly. bipap cont.
--- NOTE | 2024-04-24 04:00 | NUR ---
eyes closed. no apparent distress. nuclear monitoring technician shows sinus rhythm pacs pvcs.
--- NOTE | 2024-04-24 06:00 | NUR ---
awakened easily. blood drawn & sent to lab.
[2024-04-24 06:08] LABS: BASO% 0.7 % (0-3); EOS% 3.4 % (0-8); HEMATOCRIT 33.4 % (37.0-47.0); HEMOGLOBIN 9.5 g/dl (12.0-16.0); LYMPH% 37.3 % (15-41); MEAN CELL VOLUME 103.4 fL CALC (80.0-100.0); MEAN CORPUSCULAR HGB 29.4 pG CALC (26.0-32.0); MEAN CORPUSCULAR HGB CONC 28.4 g/dL CAL (32.0-36.0); MONO% 10.2 % (2-13); NEUT# 3.4 thou/uL (2.00-7.15); NEUT% 47.4 % (42-76); RED BLOOD COUNT 3.23 mill/uL (4.20-5.60); RED CELL DISTRI WIDTH 14.4 % (11.5-15.5)
[2024-04-24 06:27] LABS: BILIRUBIN, TOTAL 0.2 mg/dL (0.02-1.3); CREATININE 0.5 mg/dL (0.5-1.0); MAGNESIUM 1.6 mg/dL (1.6-2.3); POTASSIUM 3.9 mmol/l (3.5-5.1); TOTAL PROTEIN 5.2 g/dL (6.3-8.2)
--- NOTE | 2024-04-24 08:00 | NUR ---
PT IS UP AT THE SIDE OF THE BED EATING BREAKFAST.
--- NOTE | 2024-04-24 10:00 | NUR ---
PT IS SITTING UP ON THE EDGE OF THE BED, TALKING ON THE PHONE.
--- NOTE | 2024-04-24 12:00 | NUR ---
PT IS SITTING ON THE EDGE OF THE BED WATCHING TV.
--- NOTE | 2024-04-24 14:00 | NUR ---
PT IS SLEEPING IN BED. VITALS ARE STABLE.
--- NOTE | 2024-04-24 16:01 | NUR ---
PT IS SITTING UP AT THE SIDE OF THE BED WATCHING TV.
--- NOTE | 2024-04-24 18:01 | NUR ---
PT IS SITTING ON THE EDGE OF THE BED WATCHING TVONOFRE AT THE BEDSIDE
--- NOTE | 2024-04-24 22:28 | NUR ---
PATIENT SATS 88%, PATIENT RESTING IN BED WITH EYES CLOSED, EASILY AROUSED TO VERBAL STIMULI, NC FOUND OFF, REPLACED CANNULA ON PATIENTS NOSE, SATS INCREASED TO 96%. PATIENT OFFERED PO FLUIDS, SHE IS NOW SPEAKING TO HERSELF ABOUT HER DAUGHTER, AND S/O, NO SIGNS OF DISTRESS NOTED, REORIENTED TO ROOM AND CALL LIGHT, CALL LIGHT IN REACH, BED ALARM FOR SAFETY, POC ONGOING.
[2024-04-25] VITALS (23 sets, daily range): BP systolic 94–209; BP diastolic 55–180
--- NOTE | 2024-04-25 00:14 | NUR ---
PT RESTING IN BED, NEB TX COMPLETED, PT C/O PAIN, PT MEDICATED PER MAR, NO SIGNS OF DISTRESS NOTED, RESP EVEN AND UNLABORED. CALL LIGHT IN REACH, POC ONGOING.
--- NOTE | 2024-04-25 02:08 | NUR ---
PT RESTING IN BED WITH EYES CLOSED, NO SIGNS OF DISTRESS NOTED, RESP EVEN AND UNLABORED. CALL LIGHT IN REACH, POC ONGOING.
--- NOTE | 2024-04-25 05:14 | NUR ---
PT RESTING IN BED WITH EYES CLOSED, EASILY AROUSED TO VERBAL STIMULI, AM LABS DRAWN VIA CENTRAL LINE, PT TOELRATED WELL. CALL LIGHT IN REACH, POC ONGOING.
--- NOTE | 2024-04-25 06:18 | NUR ---
SPO2 SATURATIONS 77% PATIENT RESTING IN BED WITH EYES CLOSED, PT AWAKENED AND DISCUSSED BREATHING TECHNIQUES IN ORDER TO INCREASE O2 SATURATIONS. PT VERY DROWSY, SPEAKING INCOHERENTLY, RT CALLED TO BEDSIDE, PT PLACED ON BIPAP. CALL LIGHT IN REACH, POC ONGOING.
[2024-04-25 06:32] LABS: HEMATOCRIT 34.7 % (37.0-47.0); HEMOGLOBIN 10.1 g/dl (12.0-16.0); MEAN CELL VOLUME 104.5 fL CALC (80.0-100.0); MEAN CORPUSCULAR HGB 30.4 pG CALC (26.0-32.0); MEAN CORPUSCULAR HGB CONC 29.1 g/dL CAL (32.0-36.0); RED BLOOD COUNT 3.32 mill/uL (4.20-5.60); RED CELL DISTRI WIDTH 14.3 % (11.5-15.5)
[2024-04-25 06:42] LABS: ALBUMIN 3.4 g/dL (3.2-5.0); BILIRUBIN, TOTAL 0.2 mg/dL (0.02-1.3); CREATININE 0.9 mg/dL (0.5-1.0); MAGNESIUM 1.8 mg/dL (1.6-2.3); POTASSIUM 3.8 mmol/l (3.5-5.1); TOTAL PROTEIN 5.9 g/dL (6.3-8.2)
--- NOTE | 2024-04-25 07:00 | NUR ---
PT SITTING ON THE SIDE OH HER BED, PT IS CONFUSED, PT CALL 911 FROM HER CELL PHONE, MIRNA RN SPOKE TO DISPATCH AND EXPLAINED THAT THE PT WAS CONFUSED AND THERE WAS NO NEED FOR LAW ENFORCEMENT TO COME TO THE HOSPITAL, IT WAS EXPLAINED TO THE PT THAT SHE COULD BE CHARGED FOR MISS USING OF 911 SERVICES, PT VERBALIZED UNDERSTAND, PT REMINDED TO USE CALL LANCASTER WHEN SHE NEEDS ASSISTANCE, PT VERBALIZED UNDERSTAND, CALL [facility] WITHIN REACH
--- NOTE | 2024-04-25 07:07 | NUR ---
CRITICAL LAB CALLED INTO ICU BY JORDEN.PT CO2 48. NOTIFIED.
--- NOTE | 2024-04-25 07:45 | NUR ---
PT LYING IN BED WITH EYES CLOSED RESTING. BREATHING EVEN AND UNLABORED ON 3L NC. O2 STAT 92%. PT REQUESTED PAIN MEDS AND ANXIETY MEDICATION; BOTH GIVEN ALONG WITH MORNING MEDS WITH NO ISSUES. PERSONAL ITEMS WITHIN REACH. BED IN LOWEST POSITION. CALL LIGHT WITHIN REACH; EDUCATED PT ON USE. NO NEEDS AT THIS TIME.
--- NOTE | 2024-04-25 09:30 | NUR ---
PT GIVEN A PARTIAL BATH AND A COMPLETE LINEN CHANGE, PHYSICAL THERAPY AT BEDSIDE TO WORK WITH PT, PT ASKS FOR MULTIPLE ITEMS (FRESH SODA, HAIR BRUSH, WASH CLOTHS, COFFEE) WHILE PHYSICAL THERAPY IS ATTEMPTING TO DO EXERCISES WITH PT
--- NOTE | 2024-04-25 12:21 | NUR ---
PATIENT SITTING ON SIDE OF BED ON CELL PHONE. BREATHING UNLABORED ON 4L NC. ENCOURAGED PT TO EAT LUNCH; PT STATES SHE WILL. NO C/O OF PAIN. O2 STAT 95% BED IN LOWEST POSITION. PERSONAL ITEMS WITHIN REACH WELL CALL LIGHT; EDUCATED PT ON USE. NO NEEDS AT THIS TIME.
[2024-04-25] MEDS ORDERED: HUMALOG100 UNIT SC (12:42)
[2024-04-25] MEDS ORDERED: PREDNISONE10 MG PO (12:42)
[2024-04-25] MEDS ORDERED: PERCOCET 10/31 COMBO PO (12:42)
[2024-04-25] MEDS ORDERED: ADVAIR DISK1 IN (12:42)
[2024-04-25] MEDS ORDERED: OLANZAPINE5 MG PO (12:42)
--- NOTE | 2024-04-25 16:30 | NUR ---
PT SITTING UP ON SIDE OF BED. SPOUSE IN ROOM WITH PT. BREATHING UNLABORED ON 4L NC. NO C/O OR SIGNS OF DISTRESS NOTED. BED IN LOWEST POSITION. PERSONAL ITEMS WELL CALL LIGHT WITHIN REACH. NO NEEDS AT THIS TIME.
--- NOTE | 2024-04-25 20:00 | NUR ---
PT RESTING ON STRETCHER. O2 SAT DECREASED TO 86%. O2 VIA NC IN USE. NC NOT IN NARES. NC REPOSITIONED AND PT ENCOURAGED TO TURN, COUGH, AND DEEP BREATHE. 02 SAT INCREASED T0 94% WITH O2 AT 2L.
--- NOTE | 2024-04-25 22:00 | NUR ---
PT SITTING ON SIDE OF BED ATTEMPTED TO CHANGE ADULT BRIEF AND PULLED OUT PURWICK. PT ASSISTED TO LYING IN BED. LINEN AND GOWN CHANGED WITH ASSIST. PURWICK CHANGED. PT REMOVED PULSE OX AND LEADS, PULSE-OX, LEADS, AND BP CUFF CHANGED. PT ASSISSTED TO HIGH FOWLERS POSITION IN BED TO EAT. PT THANKFUL. NO DISTRESS.
[2024-04-26] VITALS (12 sets, daily range): BP systolic 118–143; BP diastolic 60–85
--- NOTE | 2024-04-26 | NUR ---
PT TOLERATED LARGE MEAL - FOOTLONG SANDWICH, APPLE SAUCE, MASHED POTATOES, AND CAN OF SODA. PT NOW RETING WITH EYES CLOSED IN SEMI-FOWLERS POSITION. NO DISTRESS.
--- NOTE | 2024-04-26 02:00 | NUR ---
PT RESTING. NO DISTRESS. PT REPOSITIONS SELF AND ASKS FOR ASSISTANCE NEEDED. PT REPOSITIONED AND WARM BLANKET PROVIDED. PT THANKFUL.
--- NOTE | 2024-04-26 03:55 | NUR ---
PT AWOKE AGITATED AND RESTLESS CALLING FOR [facility]. PT ABLE TO STATE NAME, PLACE, AND TIME. PT REORIENTED THAT [facility] IS NOT HERE AT THIS TIME. BIPAP OFFERED, PT STATES, "YES, I NEED THE BIPAP." BIPAP PLACED USING PREVIOUS SETTINGS. PT TOLERATING WELL.
--- NOTE | 2024-04-26 04:15 | NUR ---
PT REMOVED BIPAP MASK AND REQUESTED TO BE PLACED BACK ON NC.
--- NOTE | 2024-04-26 04:30 | NUR ---
PT RESTLESS AND CONFUSED, PT REQUEST FOR STAFF TO HELP HER GET DRESSED AND PUT ON HER WIG BECAUSE SHE HAS TO GET OUT OF HERE. PT REQUEST TO CALL [facility] TO PICK HER UP. PT EASILY REORIENTED AND VERBALIZE UNDERSTANDING THAT IT IS AFTER 4:OO IN THE SHOWROOM MANAGER. PT THEN STATES, "I'M ANXIOUS. I NEED MY KLONOPIN. MED GIVEN PER PRN ORDER.
--- NOTE | 2024-04-26 04:56 | NUR ---
PT REMAINS RESTLESS. O2 SAT DECREASED TO 87% ON 4L O2 VIA NC. PT AGREES TO WEAR BIPAP. BIPAP RESUMES WITH PREVIOUS SETTINGS.
--- NOTE | 2024-04-26 06:00 | NUR ---
PT RESTING WITH BIPAP IN USE. RT AT BEDSIDE. RT UPDATED THAT PT HAS BEEN USING BIPAP SINCE FOR ABOUT 1 HR. LIJ INTACT. TLC ALL LINES WITH GOOD BLOOD RETURN AND FLUSHES EASILY. NO DISTRESS.
--- NOTE | 2024-04-26 08:00 | NUR ---
Patient resting comfortably at bedside. Attempted to give report to nurse at [facility]. Nurse unable to obtain report
--- NOTE | 2024-04-26 09:00 | NUR ---
Patient resting at bedside. Educated on the medications given.
--- NOTE | 2024-04-26 10:00 | NUR ---
Patient discharged from floor via transport at 1052
--- NOTE | 2024-04-26 11:03 | NUR ---
Made second attempt to give report to nurse at [facility]. Nurse unable to obtain report
== END 2024-04-26 11:00 | DRG 189 ==
LOC: ED 00:27 → ED-I 02:00 → ED 02:30 → ICU 02:31
PROVIDERS: Emergency Medicine; Student in an Organized Health Care Education/Training Program; ADMIT Internal Medicine; ATTEND Internal Medicine
PROC: 5A09357 Assistance with Respiratory Ventilation, Less than 24 Consecutive Hours, Continuous Positive Airway Pressure (ICD-10-PCS; principal; 2024-03-28)
PROC: 5A09357 Assistance with Respiratory Ventilation, Less than 24 Consecutive Hours, Continuous Positive Airway Pressure (ICD-10-PCS; 2024-03-28)
PROC: 02HV33Z Insertion of Infusion Device into Superior Vena Cava, Percutaneous Approach (ICD-10-PCS; 2024-04-01)
PROC: 5A0935A Assistance with Respiratory Ventilation, Less than 24 Consecutive Hours, High Flow/Velocity Cannula (ICD-10-PCS; 2024-04-05)
DX: J96.21 Acute and chronic respiratory failure with hypoxia (principal); I50.31 Acute diastolic (congestive) heart failure; J18.9 Pneumonia, unspecified organism; J44.1 Chronic obstructive pulmonary disease with (acute) exacerbation; G93.40 Encephalopathy, unspecified; I50.32 Chronic diastolic (congestive) heart failure; E66.2 Morbid (severe) obesity with alveolar hypoventilation; F05 Delirium due to known physiological condition; J44.0 Chronic obstructive pulmonary disease with (acute) lower respiratory infection; J96.22 Acute and chronic respiratory failure with hypercapnia; E11.621 Type 2 diabetes mellitus with foot ulcer; L97.519 Non-pressure chronic ulcer of other part of right foot with unspecified severity; L03.031 Cellulitis of right toe; I11.0 Hypertensive heart disease with heart failure; I48.91 Unspecified atrial fibrillation; I08.1 Rheumatic disorders of both mitral and tricuspid valves; L98.9 Disorder of the skin and subcutaneous tissue, unspecified; M54.50 Low back pain, unspecified; G89.29 Other chronic pain; F31.9 Bipolar disorder, unspecified; F41.9 Anxiety disorder, unspecified; F17.210 Nicotine dependence, cigarettes, uncomplicated; Z99.81 Dependence on supplemental oxygen; Z68.34 Body mass index [BMI] 34.0-34.9, adult; Z88.9 Allergy status to unspecified drugs, medicaments and biological substances; Z96.89 Presence of other specified functional implants; Z79.84 Long term (current) use of oral hypoglycemic drugs; Z20.822 Contact with and (suspected) exposure to COVID-19
CPT/HCPCS: J0692; J2060; J3370; J3475; S0166